=== PATIENT | male | born 1950 | race Caucasian/White ===

== ENCOUNTER 2023-12-24 08:48 | Emergency (ER) | payer MEDICARE, BC, SELFPAY ==
[2023-12-24 08:55] VITALS: BP 126/77; PULSE 90; RESP 18; TEMP 36.6; O2SAT 98; BMI 25.0
--- NOTE | 2023-12-24 09:05 | XR_ITS ---
Final Report Patient: JAYA LIM Facility:?[facility] Patient ID:?[id number] Site Patient ID:?[id number]. Site :?[id number] Study:?XRay Shoulder Left Shoulder 3v-12/24/2023 9:30:45 AM Ordering Physician:Que Final Report: INDICATION: Intermittent left shoulder pain for 1 week. TECHNIQUE: Three views of the left shoulder. FINDINGS: No acute left shoulder fracture or dislocation. Mild subacromial narrowing consistent with rotator cuff arthropathy. Moderate glenohumeral arthritis. Mild AC joint arthrosis. Dictated by Bubba Hanson MD @ 12/24/2023 9:44:12 AM Dictated by: Bubba Hanson MD @ 12/24/2023 09:44:17 (Electronic Signature)
--- NOTE | 2023-12-24 09:10 | ED_ITS ---
HPI - General Adult General Date Seen: 12/24/23 Chief complaint: Extremity Pain/Injury, Upper Stated complaint: Left shoulder pain Time Seen by Provider: 12/24/23 08:51 Source: patient, RN notes reviewed and old records reviewed Mode of arrival: ambulatory Limitations: no limitations History of Present Illness HPI narrative: patient is a 73-year-old male who presents for evaluation of left shoulder pain which he has had intermittently for the past week. He says at times it is severe. It usually bothers him more when he is at rest, often at night. It woke him from sleep at 5:30 a.m. this morning. He does not have pain with movement of the shoulder. He does have some pain in the trapezius muscles on the left and pain radiates down the left arm but not into the hand. He has not had weakness or numbness. He has not had chest pain or difficulty breathing, nausea or vomiting. He does have a history of DE he says in his 40s. He takes atorvastatin and tamsulosin. No other significant medical history. He does not smoke, no significant alcohol use. He has tried Tylenol and aspirin without relief. At times he has minimal to no pain. Related Data Home Medications Medication Instructions Recorded Confirmed B-complex with vitamin C 1 tab PO DAILY 12/24/23 12/24/23 atorvastatin 40 mg tablet 40 mg PO DAILY 12/24/23 12/24/23 terazosin 2 mg capsule 8 mg PO DAILY 12/24/23 12/24/23 tolterodine 2 mg capsule,extended 2 mg PO DAILY 12/24/23 12/24/23 release 24 hr Allergies Allergy/AdvReac Type Severity Reaction Status Date / Time No Known Drug Allergies Allergy Verified 12/24/23 08:55 Review of Systems Status of ROS: Reports: 10 or more systems reviewed and unremarkable except as noted in History and below [facility] Social History Smoking Status: Former smoker How often do you have a drink containing alcohol: never AUDIT-C Alcohol total score: 0 Non-prescribed substance use: denies use Exam Narrative: Exam Narrative: Vital signs as noted above. In general, an alert, well-appearing patient. Head: Normocephalic, atraumatic. Eyes: Pupils are equal reactive. Extraocular movements are full. Conjunctivae are normal. ENT: Mucous membranes are moist. Throat is normal. Neck: Supple without lymphadenopathy. Heart: Regular rate and rhythm. No murmur or rub. Lungs: Clear bilaterally. No increased work of breathing, crackles or wheezes. Abdomen: Soft and nontender. No organomegaly. Extremities: Well perfused. No edema. No calf tenderness. Pulses intact. He has full range of motion of the left shoulder, it is nontender to palpation. Neurologic: Patient is alert and oriented to person and place. Speech is fluent. Face is symmetric. Moves all extremities equally. Strength 5 of 5 in bilateral upper extremities, sensation intact to light touch. Affect: Normal. Skin: Warm and dry. Well perfused. Const: Vital Signs, click to edit/add: Vital Signs - 24 hr 12/24/23 08:55 Temperature 98 F Pulse Rate [Pulse Oximeter] 90 Respiratory Rate 18 Blood Pressure [Ri ght Upper Arm] 126/77 Pulse Oximetry 98 Oxygen Delivery Me thod Room Air Documenting provider has reviewed patient's vital signs: yes Course Course ED Course: Etiology of patient's shoulder pain at this time is a little unclear. The absence of pain with range of motion I think makes me less suspicious of conditions such as impingement, arthritis, adhesive capsulitis, etcetera. Pattern of pain is not overly suggestive of a cardiac etiology with symptoms being more prominent at rest, but with his past medical history of did recommend that we do a little bit of evaluation to rule that out. We will get an x-ray to look at the shoulder joint itself. Also consider cervical etiology for his symptoms. No red flag symptoms suggesting need for immediate imaging of the neck. X-ray of the left shoulder by my review shows some mild degenerative changes, no fracture dislocation. Final radiology read is pending as we do not have standard radiology coverage currently. Overall, my sense is that this is less likely to be directly related to a shoulder joint problem, consider possibility of cervical radiculopathy. I prescribed prednisone, he can continue with ibuprofen and Tylenol, I gave him oxycodone, 4 tablets from [facility] if needed for more severe pain at night. Have asked him to follow up with his primary clinic at the [facility] for re-evaluation, consideration of further imaging, and orthopedic follow-up if indicated. Return at any time for acute worsening or new symptoms. Vital Signs Vital signs: Initial Vital Signs Temperature 98 F 12/24/23 08:55 Temperature Source Temporal Artery Scan 12/24/23 08:55 Pulse Rate 90 12/24/23 08:55 Respiratory Rate 18 12/24/23 08:55 Blood Pressure 126/77 12/24/23 08:55 Blood Pressure Mean 93 12/24/23 08:55 Blood Pressure Position Sitting 12/24/23 08:55 Pulse Oximetry 98 12/24/23 08:55 Oxygen Delivery Method Room Air 12/24/23 08:55 Vital Signs Temperature 98 F 12/24/23 08:55 Pulse Rate 90 12/24/23 08:55 Respiratory Rate 18 12/24/23 08:55 Blood Pressure 126/77 12/24/23 08:55 Pulse Oximetry 98 12/24/23 08:55 Oxygen Delivery Method Room Air 12/24/23 08:55 Temperature 98 F 12/24/23 08:55 Pulse Rate 90 12/24/23 08:55 Respiratory Rate 18 12/24/23 08:55 Blood Pressure 126/77 12/24/23 08:55 Pulse Oximetry 98 12/24/23 08:55 Oxygen Delivery Method Room Air 12/24/23 08:55 Medical Decision Making Lab Data Labs: Lab Results 12/24/23 Range/Units 09:12 WBC 6.31 (4.50-11.00) K/uL RBC 3.80 L (4.30-5.90) m/uL Hgb 10.9 L (13.5-17.5) gm/dL Hct 35.4 L (37.0-53.0) % MCV 93 (80-100) fL MCH 29 (26-34) pg MCHC 31 L (32-36) gm/dL RDW Coeff of Wendy 13.0 (11.5-15.5) % Plt Count 275 (140-440) K/uL Neut % (Auto) 71.3 (42.0-72.0) % Lymph % (Auto) 18.1 L (20-44) % Maverick % (Auto) 7.4 (0.0-11.0) % Eos % (Auto) 2.7 (0.0-7.0) % Baso % (Auto) 0.3 (0.0-3.0) % Neut # (Auto) 4.50 (1.7-7.0) K/uL Lymph # (Auto) 1.10 (0.90-2.90) K/uL Maverick # (Auto) 0.50 (0.00-0.90) K/UL Eos # (Auto) 0.17 (0.00-0.50) K/uL Baso # (Auto) 0.02 (0.00-0.30) K/uL Abs Immat Gran (auto) 0.01 (0.00-0.30) K/uL Imm/Tot Granulo (auto) 0.2 % Sodium 137 (135-149) mmol/L Potassium 4.3 (3.6-5.1) mmol/L Chloride 104 (96-114) mmol/L Carbon Dioxide 27 (20-32) mmol/L Anion Gap 6 L (7-15) mEq/L BUN 16 (7-30) mg/dL Creatinine 0.7 (0.5-1.5) mg/dL Estimated Creat Clear 64.81 Estimated GFR 97 ml/min Glucose 109 (60-115) mg/dL Calcium 9.0 (8.4-10.6) mg/dL C-Reactive Protein < 0.5 L (0.5-1.0) mg/dL POC Troponin I 0.00 L (0.01-0.04) ng/ml Discharge Plan Discharge Clinical Impression: Left shoulder pain Patient Disposition: Home, Self-Care Condition: Stable Instructions: Shoulder Pain (ED) Additional Instructions: Continue with ibuprofen and Tylenol. Oxycodone if needed for severe uncontrolled pain. Prednisone as follows: 3 tablets daily for 3 days then 2 tablets daily for 3 days then 1 tablet daily for 3 days. I would recommend that you follow-up with primary care as you may need further evaluation of your cervical spine or with Orthopedics depending on how symptoms progress. Return to the ER at any time for acute worsening or new symptoms. Prescriptions: No Action tolterodine 2 mg capsule,extended release 24hr 2 mg PO DAILY terazosin 2 mg capsule 8 mg PO DAILY atorvastatin 40 mg tablet 40 mg PO DAILY B-complex with vitamin C Tablet 1 tab PO DAILY Follow Up/Referrals: Provider,Not a Local [Primary Care Provider] - Stand Alone Forms: [employer] Info Instructions
[2023-12-24 09:20] LABS: Basophils Absolute Auto 0.02 K/uL (0.00-0.30); Basophils Percent Auto 0.3 % (0.0-3.0); Eosinophils Absolute Auto 0.17 K/uL (0.00-0.50); Eosinophils Percent Auto 2.7 % (0.0-7.0); Hematocrit 35.4 % (37.0-53.0); Hemoglobin* 10.9 gm/dL (13.5-17.5); Immature Granulocytes Abs Auto 0.01 K/uL (0.00-0.30); Immature Granulocytes Pct Auto 0.2 %; Lymphocytes Percent Auto 18.1 % (20-44); Mean Corpuscular HGB Conc 31 gm/dL (32-36); Mean Corpuscular Hemoglobin 29 pg (26-34); Mean Corpuscular Volume 93 fL (80-100); Monocytes Percent Auto 7.4 % (0.0-11.0); Neutrophils Percent Auto 71.3 % (42.0-72.0); Platelet Count* 275 K/uL (140-440); White Blood Count* 6.31 K/uL (4.50-11.00)
[2023-12-24 09:22] LABS: Slide Review Reflex No
[2023-12-24 09:30] LABS: Chloride* 104 mmol/L (96-114); Potassium* 4.3 mmol/L (3.6-5.1); Sodium* 137 mmol/L (135-149)
[2023-12-24 09:33] LABS: Creatinine* 0.7 mg/dL (0.5-1.5); Est. Creatinine Clearance* 64.81; Estimated Glomerular Filt Rate 97 ml/min
[2023-12-24 09:34] LABS: Anion Gap 6 mEq/L (7-15); Blood Urea Nitrogen* 16 mg/dL (7-30); Carbon Dioxide* 27 mmol/L (20-32); Glucose* 109 mg/dL (60-115)
--- OUTSIDE RECORDS SUMMARY | 2023-12-24 09:43 | XMS_ITS | Referral Summary ---
Author Name Unknown Organization [place] Address [address] [place] [address] Care Team Providers Care Integrated Circuit Fabricator Name Role Phone Carrie Vicente PA-C Unavailable [phone] Barrie Hussein PA-C Primary Care Provider [phone] Allergies Active Allergy Reactions Criticality Noted Date Comments Penicillins Rash Low 07/24/2017 Sulfa Antibiotics Rash Low 07/12/1995 Medications Medication Sig Dispensed Refills Start Date End Date Status terazosin (HYTRIN) 2 MG capsuleIndications:E ssential hypertension,Benign prostatic hyperplasia with urinary frequency Take 1 capsule (2 mg) by mouth 3 times daily 270 capsule 3 06/10/2020 Active atorvastatin (LIPITOR) 40 MG tabletIndications:At herosclerosis of [place] coronary artery of [place] heart without angina pectoris Take 1 tablet (40 mg) by mouth daily 30 tablet 11 06/10/2020 Active cholecalciferol (VITAMIN D3) 10 mcg (400 units) TABS tablet TAKE TWO TABLETS BY MOUTH EVERY MORNING FOR VITAMIN-D 0 10/15/2019 Active vitamin B-12 (CYANOCOBALAMIN) 1000 MCG tablet Take 1,000 mcg by mouth daily 0 01/18/2023 Active BELBUCA 900 MCG FILM buccal film DISSOLVE 1 FILM BUCALLY TWICE DAILY FOR CHRONIC PAIN. DO NOT EAT DRINK OR SMOKE FOR 30 MINUTES 0 06/12/2023 Active metoprolol succinate ER (TOPROL XL) 25 MG 24 hr tablet Taking 6.25mg Pt is stopping medication, taking half of a half 0 07/07/2023 Active buprenorphine HCl-naloxone HCl (SUBOXONE) 2-0.5 MG per film TAKE ONE FILM TWICE DAILY BUCALLY 0 07/13/2023 Active cetirizine (ZYRTEC) 10 MG tablet Take 1 tablet by mouth daily at 2 pm 0 07/17/2023 Active Active Problems Problem Noted Date Diagnosed Date Anemia 08/03/2023 Benign neoplasm of sigmoid colon 07/07/2023 Deficiency of other specified B group vitamins 0 07/07/2023 Chronic right-sided low back pain with right-anyi ed sciatica 07/08/2022 ACP (advance care planning) 06/10/2020 Overview: Copy of healthcare directive was given to the patient today. Health Longterm 06/10/2020 Old [place] (myocardial infarction) 07/24/2017 Overview: 1994- RCA in [place] Mixed hyperlipidemia 07/24/2017 Status post aorto-coronary artery bypass graft 0 07/24/2017 Overview: 07/10/1997- Dr. 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 Atherosclerosis of [place] co ronary artery of [place] heart without angina pectoris 07/24/2017 HTN (hypertension) 05/25/2010 CVD (cardiovascular disease) 05/25/2010 Coronary atherosclerosis 05/25/2010 Immunizations Name Administration Dates Next Due COVID-19 MONOVALENT 12+ (Pfizer) 10/23/2021 COVID-19 Monovalent 18+ (Moderna) 01/16/2021,,12/26/2019 Flu, Unspecified 09/10/2014,08/06/2003 Influenza Vaccine 65+ (FLUAD) 07/12/2022 Influenza Vaccine >6 months,quad, PF 10/09/2020 Influenza Vaccine IM 18-49 Yrs, RIV3 10/15/2019 Pneumo Conj 13-V (2010&after) 06/20/2016 Pneumococcal 23 valent 10/17/2017,07/25/2008 Pneumococcal, Unspecified 05/30/2011 TDAP Vaccine (Adacel) 08/01/2013,06/19/2003 TDAP Vaccine (Boostrix) 07/05/2006 Td (Adult), Adsorbed 07/05/2006 Zoster recombinant adjuvanted (SHINGRIX) 020,04/01/2020 Zoster vaccine, live 08/01/2013 Social History Tobacco Use Types Packs/Day Years Used Date Smoking Tobacco: Former Cigarettes 1 25 Q uit: 1994 Passive Smoke Exposure: Past Smokeless Tobacco: Never Tobacco Cessation:Counseling Given: Not Answered Alcohol Use Standard Drinks/Week Comments Yes 0 (1 standard drink = 0.6 oz pur e alcohol) AUDIT-C Answer Date Recorded Q1: How often do you have a drink containing alc ohol? Monthly or less 07/16/2020 Q2: How many drinks containi ng alcohol do you have on a typical day when you are drinking? 1 or 2 07/16/2020 Q3: How often do you have si x or more drinks on one occasion? Never 07/16/2020 PHQ-2 Answer Date Recorded PHQ-2 Score 0 07/07/2023 Adolescent Education Answer Date Record ed Getting School Help Needed Not on file 08/03 Sex and Gender Information Value Date Recorded Sex Assigned at Not on file Gender Identity Not on file Sexual Orientation Not on file Last Filed Vital Signs Vital Sign Reading Time Taken Comments Blood Pressure 132/78 08/03/2023 11:19 AM CDT Pulse 66 08/03/2023 11:19 AM CDT Temperature 37.2 ??C (98.9 ??F) 08/03/2023 11:19 AM C DT Respiratory Rate 20 07/07/2023 11:21 AM CDT Oxygen Saturation 98% 08/03/2023 11:19 AM CDT Inhaled Oxygen Concentration - - Weight 79.8 kg (176 lb) 08/03/2023 11:19 AM CDT Height 175.3 cm (5' 9) 07/07/2023 11:21 AM CDT Body Mass Index 25.99 07/07/2023 11:21 AM CDT Plan of Treatment Not on file Care Teams Integrated Circuit Fabricator Relationship Specialty Start Date End Date Barrie Hussein PA-C [address] [address] [place] [address] PCP - General Family Medicine 07/24/23 Carrie Vicente PA-C [address] , [facility] [address] [place] [address] Assigned PCP 12/06/20
--- OUTSIDE RECORDS SUMMARY | 2023-12-24 09:43 | XMS_ITS | Encounter Summary ---
Author Name Unknown Organization [facility] Address [address] [place] [address] Care Team Providers Care Community Service Aide Name Role Phone Carrie Vicente PA-C Unavailable [phone] Candido Nichols MD Unavailable Un available Clinic, [facility] Primary Care Provider Carrie Vicente PA-C Primary Care Provid er Barrie Hussein PA-C Primary Care Provider [phone] Encounter Details Date Type Department Care Team (Late st Contact Info) Description 09/17/2021 Documentation Only INTERFACED REPORT Unknown, Provider Social History Tobacco Use Types Packs/Day Years Used Date Smoking Tobacco: Former Cigarettes 1 25 Q uit: 1994 Smokeless Tobacco: Never Alcohol Use Standard Drinks/Week Comments Yes 0 [...] PHQ-2 Answer Date Recorded PHQ-2 Score 0 05/03/2021 Sex and Gender Information Value Date Recorded Sex Assigned at Not on file Gender Identity Not on file Sexual Orientation Not on file COVID-19 Exposure Response Date Recorded In the last month, have you been in contact with someone who was confirmed or suspected to have Coronavirus / COVID-19? No / Unsure 09/17/2021 11:08 AM SCRAP HANDLER documented as of this encounter Plan of Treatment Not on file documented as of this encounter Visit Diagnoses Not on filedocumented in this encounter Additional Health Concerns Assessment Noted Time PHQ-9 Depression Total Score: 2 06/10/20 20 5:42 PM CDT documented as of this encounter Care Teams Community Service Aide Relationship Specialty Start Date End Date Clinic, [place], [place] PCP - General 09/17/21 09/26/21 Carrie Vicente PA-C [address], [place] [address] [place] [address] PCP - General Family Medicine 09/27/21 07/23/23 Barrie Hussein PA-C [address] [place] [address] PCP - General Family Medicine 07/24/23 Carrie Vicente PA-C [address], [place] [address] [place] [address] Assigned PCP 12/06/20 Candido Nichols MD Assigned Heart and Vascular Provider 06/27/21 12/23/22 documented as of this encounter
--- OUTSIDE RECORDS SUMMARY | 2023-12-24 09:43 | XMS_ITS | Clinical Summary ---
Author Name Unknown Organization [place] Address [address] [place] [address] Care Team Providers Care Adult High School Instructor Name Role Phone Carrie Vicente PA-C Unavailable [phone] Barrie Hussein PA-C Primary Care Provider [phone] Allergies Active Allergy Reactions Criticality Noted Date Comments Penicillins Rash Low 07/24/2017 Sulfa Antibiotics Rash Low 07/12/1995 Medications Medication Sig Dispensed Refills Start Date End Date Status terazosin (HYTRIN) 2 MG capsuleIndications:E ssential hypertension,Benign prostatic hyperplasia with urinary frequency Take 1 capsule (2 mg) by mouth 3 times daily 270 capsule 3 06/10/2020 Active atorvastatin (LIPITOR) 40 MG tabletIndications:At herosclerosis of [place] coronary artery of [place] heart without angina pectoris Take 1 tablet [...] was given to the patient today. Health Half-Way 06/10/2020 [place] (myocardial infarction) 07/24/2017 Overview: 1994- RCA in [place] Mixed hyperlipidemia 07/24/2017 Status post aorto-coronary artery bypass graft 0 07/24/2017 Overview: 07/10/1997- Dr. 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 FLIGHT DIRECTOR of the RCA Atherosclerosis of [place] co ronary artery of [place] heart without angina pectoris 07/24/2017 HTN (hypertension) [...] adjuvanted (SHINGRIX) 020,04/01/2020 Zoster vaccine, live 08/01/2013 Family History Medical History Relation Comments Diabetes Type 2 Father Myocardial Infarction Father 60s Diabetes Type 2 Mother Coronary Artery Disease Sister Hyperlipidemia Son Colon Cancer No family hx of Prostate Cancer No family hx of Relation Status Comments Daughter 1 Alive Daughter 2 Alive Father Maternal Grandfather Maternal Grandmother Mother Paternal Grandfather Paternal Grandmother Sister Alive Son Alive Social History Tobacco Use Types Packs/Day Years [...] 07/07/2023 11:21 AM CDT Plan of Treatment Health Maintenance Due Date Last Done Comments ANNUAL REVIEW OF HM ORDERS 1950 CT COLONOGRAPHY 1950 FIT 1950 FLEX SIG 1950 LIPID 1950 sDNA (Cologuard) 1950 HEPATITIS C SCREENING 1967 RSV VACCINE ( & 60+) (1 - 1-dose 60+ series) 2009 AORTIC ANEURYSM SCREENING (SYSTEM ASSIGNED) 2014 MEDICARE ANNUAL WELLNESS VISIT 2014 COVID-19 Vaccine (2022-24 season) 2023 01/18/2023, 10/23/2021, 01/16/2021, Additional history exists INFLUENZA VACCINE (#1) 2023 , 10/09/2020, 10/15/2019, Additional history exists DTAP/TDAP/TD IMMUNIZATION (5 - Td or Tdap) 08/01/2023 08/01/2013, 07/05/2006, 07/05/2006, Additional history exists PHQ-2 (once per calendar year) 2023 07/07/2023, 05/03/2021, 06/10/2020, Additional history exists FALL RISK ASSESSMENT 07/07/2024 07/07/2023, 06/10/20 20 ADVANCE CARE PLANNING 06/10/2025 06/10/2020, 020 GLUCOSE 07/07/2026 07/07/2023, 09/06, 05/03/2021, Additional history exists COLONOSCOPY 07/07/2027 COLORECTAL CANCER SCREENING 07/07/2027 Pneumococcal Vaccine: 65+ Years Completed 10/17/2017, 06/20/2016, 05/30/2011, Additional history exists ZOSTER IMMUNIZATION Completed 07/02/2020, 04/01/2020, 08/01/2013 HPV IMMUNIZATION Aged Out No longer e ligible based on patient's age to complete this topic IPV IMMUNIZATION Aged Out No longer e ligible based on patient's age to complete this topic MENINGITIS IMMUNIZATION Aged Out No l onger eligible based on patient's age to complete this topic RSV MONOCLONAL ANTIBODY Aged Out No l onger eligible based on patient's age to complete this topic Care Teams Adult High School Instructor Relationship Specialty Start Date End Date Barrie Hussein PA-C [address] [address] [place] [address] PCP - General Family Medicine 07/24/23 Carrie Vicente PA-C [address] , [facility] [address] [place] [address] Assigned PCP 12/06/20
--- OUTSIDE RECORDS SUMMARY | 2023-12-24 09:43 | XMS_ITS | Encounter Summary ---
Author Name Unknown Organization [place] Address [address] [place] [address] Care Team Providers Care Perinatal Educator Name Role Phone Carrie Vicente PA-C Unavailable [phone] Carrie Vicente PA-C Primary Care Provid er Encounter Details Date Type Department Care Team (Latest Contact Info) Description 07/07/2023 Travel Social History Tobacco Use Types Packs/Day Years Used Date Smoking Tobacco: Former Cigarettes 1 25 Q uit: 1994 Passive Smoke Exposure: Past Smokeless Tobacco: Never Alcohol Use Standard Drinks/Week [...] Answer Date Recorded PHQ-2 Score 0 07/07/2023 Sex and Gender Information Value Date Recorded Sex Assigned at Not on file Gender Identity Not on file Sexual Orientation Not on file COVID-19 Exposure Response Date Recorded In the last 10 days, have yo u been in contact with someone who was confirmed or suspected to have Coronavirus/COVID-19? No / Unsure 07/07/2023 11:06 AM CDT documented as of this encounter Plan of Treatment Not on file documented as of this encounter Visit Diagnoses Not on filedocumented in this encounter Additional Health Concerns Assessment Noted Time PHQ-9 Depression Total Score: 2 06/10/20 20 5:42 PM CDT documented as of this encounter Care Teams Perinatal Educator Relationship Specialty Start Date End Date Carrie Vicente PA-C [address], [place] [address] [place] [address] PCP - General Family Medicine 09/27/21 07/23/23 Carrie Vicente PA-C [address], [place] [address] [place] [address] Assigned PCP 12/06/20 documented as of this encounter
--- OUTSIDE RECORDS SUMMARY | 2023-12-24 09:43 | XMS_ITS | Clinical Summary ---
Author Name Unknown Organization [facility] Address [address] [place] [address] Care Team Providers Care Measuring Machine Operator Name Role Phone Pcp, Pt Declines Primary Care Provider [phone] Source Comments You are receiving this document as you are listed as the primary care provider,follow-up provider, or the patient has been referred to you for consultation.This is in compliance with the Medicare and[facility] EHR Incentive Program,which states Providers who transition their patient to another setting of careor provider of care or refers their patient to another provider of care shouldprovide summary care record for each transition of care or referral. [facility] Allerg[facility] Active Allergy Reactions Criticality Noted Date Comments Penicillins Rash 07/24/2017 Medications Medication Sig Dispensed Refills Start Date End Date Status atenolol (TENORMIN) 25 MG tablet Take 25 mg by mouth daily. Active terazosin (HYTRIN) 2 MG capsule Take 2 mg by mouth every evening. Active atorvastatin (LIPITOR) 40 MG tablet Take 40 mg by mouth daily. Active HYDROcodone-acetaminop hen (VICODIN,LORTAB) 5-500 MG tablet Take 1 Tab by mouth every 6 hours as needed for Pain. Active HYDROcodone-acetaminop hen (NORCO) 10-325 MG tablet TAKE 1 TABLET BY MOUTH EVERY 4 - 6 HOURS NEEDED FOR CHRONIC PAIN MAX 3/DAY 0 09/30/2019 Active oxyCODONE-acetaminophe n (PERCOCET) 10-325 MG tablet TAKE 1 TABLET DAILY NEEDED FOR CHRONIC PAIN 0 09/30/2019 Active Active Problems Problem Noted Date Diagnosed Date Old PR (myocardial infarction) 07/24/2017 Overview: 1994- RCA in [place] Atherosclerotic heart diseas e of [place] coronary artery without angina pectoris 07/24/2017 Hx of CABG 07/24/2017 Overview: 07/10/1997- Dr. 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 NIGHT CLERK of the RCA Mixed hyperlipidemia 07/24/2017 Social History Tobacco Use Types Packs/Day Years Used Date Smoking Tobacco: Never Smokeless Tobacco: Never Tobacco Cessation:Counseling Given: No Alcohol Use Standard Drinks/Week Comments No 0 (1 standard drink = 0.6 oz pur e alcohol) Sex and Gender Information Value Date Recorded Sex Assigned at Not on file Gender Identity Not on file Sexual Orientation Not on file Last Filed Vital Signs Vital Sign Reading Time Taken Comments Blood Pressure 123/72 02/05/2018 9:44 AM CDT Pulse 55 02/05/2018 9:44 AM CDT Temperature 36.8 ??C (98.3 ??F) 10/13/2019 9:57 AM CS T Respiratory Rate 16 02/05/2018 9:44 AM CDT Oxygen Saturation 100% 02/05/2018 9:44 AM CDT Inhaled Oxygen Concentration - - Weight 77.1 kg (170 lb) 08/30/2018 10:54 AM CDT Height 175.3 cm (5' 9) 02/05/2018 9:00 AM CDT Body Mass Index 25.1 02/05/2018 9:00 AM CDT Plan of Treatment Health Maintenance Due Date Last Done Comments Colon Cancer Screening Plan Due 1950 Hep C Screening (Preventive Services) 1950 Medicare Annual Wellness Visit 1950 Cholesterol 1984 DTaP/Tdap/Td (1 - Tdap) 07/06/2006 07/05/2006 Pneumococcal 65+ Yrs (2 - PCV) 2014 07/25/2008 Zoster/Shingles (2 of 2) 08/27/2020 07/02/2020 COVID-19 Vaccine (2 - 2022-2 4 season) 2023 12/26/2020 Influenza (#1) 2023 HepA Aged Out No longer eligi ble based on patient's age to complete this topic HepB Aged Out No longer eligi ble based on patient's age to complete this topic Hib Aged Out No longer eligi ble based on patient's age to complete this topic IPV ([place]) Aged Out No longer eligi ble based on patient's age to complete this topic MCV4 Aged Out No longer eligi ble based on patient's age to complete this topic Care Teams Measuring Machine Operator Relationship Specialty Start Date End Date Pcp, [place] [address] PCP - General 01/17/18
--- OUTSIDE RECORDS SUMMARY | 2023-12-24 09:43 | XMS_ITS | Encounter Summary ---
Author Name Unknown Organization [facility] Address [address] [place] [address]. [place] [address] Care Team Providers Care Permit Specialist Name Role Phone Carrie Vicente PA-C Unavailable [phone] Adrian Montilla PA-C Primary Care Provider [phone] Reason for Visit * Reason Comments Pre-Op Exam Pt here for his pre- op exam for removal of his stimulator on August [address] Marino at [facility]. Encounter Details Date Type Department Care Team (Late st Contact Info) Description 08/03/2023 11:30 AM CDT Office Visit [facility] [address] [place] [address] Adrian Montilla PA-C [address] [place] [address] Chronic bilateral low back pain without sciatica (Primary Dx); Pre-op exam Social History Tobacco Use Types Packs/Day Years [...] was confirmed or suspected to have Coronavirus/COVID-19? Unable to assess 08/03/2023 11:09 AM CDT documented as of this encounter Last Filed Vital Signs Vital Sign Reading Time Taken Comments Blood Pressure 132/78 08/03/2023 11:19 AM CDT Pulse 66 08/03/2023 11:19 AM CDT Temperature 37.2 ??C (98.9 ??F) 08/03/2023 11:19 AM C DT Respiratory Rate - - Oxygen Saturation 98% 08/03/2023 11:19 AM CDT Inhaled Oxygen Concentration - - Weight 79.8 kg (176 lb) 08/03/2023 11:19 AM CDT Height - - Body Mass Index 25.99 07/07/2023 11:21 AM CDT documented in this encounter Progress Notes * Adrian Montilla PA-C - 08/03/2023 11:30 AM CDT [facility] [address] [place] [id number] Primary Provider: Adrian Montilla Pre-op Performing Provider: ADRIAN MONTILLA PREOPERATIVE EVALUATION: Today's date: 08/03/2023 Gabriele is a 72 year old male who presents for a preoperative evaluation. Surgical Information: Surgery/Procedure: Stimulator removal Surgery Location: [facility] Surgeon: Dr. Marino Surgery Date: 08/15/23 Time of Surgery: AM Where patient plans to recover: At home with family Fax number for surgical facility: [phone] Assessment & Plan The proposed surgical procedure is considered INTERMEDIATE risk. Chronic bilateral low back pain without sciatica Proceed with surgery at surgeon's discretion. - VENOUS COLLECTION - HEMOGRAM PLATELET DIFF (BFP) Pre-op exam - VENOUS COLLECTION - HEMOGRAM PLATELET DIFF (BFP) - No identified additional risk factors other than previously addressed Antiplatelet or Anticoagulation Medication Instructions: - Patient is on no antiplatelet or anticoagulation medications. Additional Medication Instructions: Hold all meds until after surgery RECOMMENDATION: APPROVAL GIVEN to proceed with proposed procedure, without further diagnostic evaluation. Subjective HPI related to upcoming procedure: Chronic back pain, removal of stimulator 1. Yes - Have you ever had a heart attack or stroke? 1994 and 1996, [place] x2 2. Yes - Have you ever had surgery on your heart or blood vessels, such as a stent, coronary (heart) bypass, or surgery on an artery in the head, neck, heart, or legs? Triple bypass 1996, unknown number of coronary artery stents 3. No - Do you have chest pain when you are physically active? 4. No - Do you have a history of heart failure? 5. No - Do you currently have a cold, bronchitis, or symptoms of other respiratory (head and chest)infections? 6. No - Do you have a cough, shortness of breath, or wheezing? 7. No - Do you or anyone in your family have a history of blood clots? 8. No - Do you or anyone in your family have a serious bleeding problem, such as long-lasting bleeding after surgeries or cuts? 9. No - Have you ever had anemia or been told to take iron pills? 10. No - Have you had any abnormal blood loss such as black, tarry or bloody stools, or abnormal vaginal bleeding? 11. No - Have you ever had a blood transfusion? 12. Yes - Are you willing to have a blood transfusion if it is medically needed before, during, or after your surgery? 13. No - Have you or anyone in your family ever had problems with anesthesia (sedation for surgery)? 14. No - Do you have sleep apnea, excessive snoring, or daytime drowsiness? 15. Yes - Do you have any artifical heart valves or other implanted medical devices, such as a pacemaker, defibrillator, or continuous glucose monitor? Spinal stimulator What type of device? Spinal stimulator What is the name of the clinic that manages your device? [facility] 16. No - Do you have any artifical joints? 17. No - Are you allergic to latex? Health Care Directive: Patient does not have a Health Care Directive or Living Will: Discussed advance care planning with patient; however, patient declined at this time. Preoperative Review of COMPLAINT SUPERVISOR: COMPLAINT SUPERVISOR reviewed - controlled substances prescribed by other outside provider(s). Status of Chronic Conditions: CAD - Patient has a longstanding history of moderate-severe CAD. Patient denies recent chest pain or NTG use, denies exercise induced dyspnea or PND. Last Stress test Unknown, EKG 07/07/23. HYPERLIPIDEMIA - Patient has a long history of significant Hyperlipidemia requiring medication for treatment with recent good control. Patient reports no problems or side effects with the medication. Review of Systems CONSTITUTIONAL: NEGATIVE for fever, chills, change in weight INTEGUMENTARY/SKIN: NEGATIVE for worrisome rashes, moles or lesions EYES: NEGATIVE for vision changes or irritation ENT/MOUTH: NEGATIVE for ear, mouth and throat problems RESP: NEGATIVE for significant cough or SOB CV: NEGATIVE for chest pain, palpitations or peripheral edema GI: NEGATIVE for nausea, abdominal pain, heartburn, or change in bowel habits : NEGATIVE for frequency, dysuria, or hematuria NEURO: NEGATIVE for weakness, dizziness or paresthesias ENDOCRINE: NEGATIVE for temperature intolerance, skin/hair changes HEME: NEGATIVE for bleeding problems PSYCHIATRIC: NEGATIVE for changes in mood or affect Patient Active Problem List Diagnosis Date Noted Anemia 08/03/2023 Priority: Medium Benign neoplasm of sigmoid colon 07/07/2023 Priority: Medium Deficiency of other specified B group vitamins 07/07/2023 Priority: Medium Chronic right-sided low back pain with right-sided sciatica 07/08/2022 Priority: Medium ACP (advance care planning) 06/10/2020 Priority: Medium Copy of healthcare directive was given to the patient today. [facility] 06/10/2020 Priority: Medium Old MT (myocardial infarction) 07/24/2017 Priority: Medium 1995- RCA in [place] Mixed hyperlipidemia 07/24/2017 Priority: Medium Status post aorto-coronary artery bypass graft 07/24/2017 Priority: Medium 07/10/1997- Dr. 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 FABRICATOR SPECIAL ITEMS of the RCA Atherosclerosis of [place] coronary artery of [place] heart without angina pectoris 07/24/2017 Priority: Medium HTN (hypertension) 05/25/2010 Priority: Medium CVD (cardiovascular disease) 05/25/2010 Priority: Medium Coronary atherosclerosis 05/25/2010 Priority: Medium No past medical history on file. Past Surgical History: Procedure Laterality Date APPENDECTOMY 2009 approx 2010 CABG, ARTERIAL, THREE 1997 x 3 LAT [facility] CORONARY STENT PERCUT, INITIAL VESSEL [place] Current Outpatient Medications Medication Sig Dispense Refill atorvastatin (LIPITOR) 40 MG tablet Take 1 tablet (40 mg) by mouth daily 30 tablet 11 BELBUCA 900 MCG FILM buccal film DISSOLVE 1 FILM BUCALLY TWICE DAILY FOR CHRONIC PAIN. DO NOT EAT DRINK OR SMOKE FOR 30 MINUTES buprenorphine HCl-naloxone HCl (SUBOXONE) 2-0.5 MG per film TAKE ONE FILM TWICE DAILY BUCALLY cetirizine (ZYRTEC) 10 MG tablet Take 1 tablet by mouth daily at 2 pm cholecalciferol (VITAMIN D3) 10 mcg (400 units) TABS tablet TAKE TWO TABLETS BY MOUTH EVERY MORNINGFOR VITAMIN-D metoprolol succinate ER (TOPROL XL) 25 MG 24 hr tablet Taking 6.25mg Pt is stopping medication, taking half of a half terazosin (HYTRIN) 2 MG capsule Take 1 capsule (2 mg) by mouth 3 times daily 270 capsule 3 vitamin B-12 (CYANOCOBALAMIN) 1000 MCG tablet Take 1,000 mcg by mouth daily Allergies Allergen Reactions Penicillins Rash Sulfa Antibiotics Rash Social History Tobacco Use Smoking status: Former Packs/day: 1.00 Years: 25.00 Pack years: 25.00 Types: Cigarettes Quit date: 1994 Years since quittin.7 Passive exposure: Past Smokeless tobacco: Never Substance Use Topics Alcohol use: Yes History Drug Use Unknown Objective BP 132/78 (BP Location: Right arm, Patient Position: Sitting, Cuff Size: Adult Large) Pulse 66 Temp 98.9 ??F (37.2 ??C) (Temporal) Wt 79.8 kg (176 lb) SpO2 98% BMI 25.99 kg/m?? Physical Exam GENERAL APPEARANCE: healthy, alert and no distress EYES: EOMI, PERRL HENT: ear canals and TM's normal and nose and mouth without ulcers or lesions NECK: no adenopathy, no asymmetry, masses, or scars and thyroid normal to palpation RESP: lungs clear to auscultation - no rales, rhonchi or wheezes CV: regular rates and rhythm, normal S1 S2, no S3 or S4 and no murmur, click or rub ABDOMEN: soft, nontender, no HSM or masses and bowel sounds normal MS: extremities normal- no gross deformities noted, no evidence of inflammation in joints, FROM in all extremities. SKIN: no suspicious lesions or rashes NEURO: Normal strength and tone, sensory exam grossly normal, mentation intact and speech normal PSYCH: mentation appears normal. and affect normal/bright LYMPHATICS: No cervical adenopathy Recent Labs Lab Test 07/07/23 1205 07/07/23 0000 09/17/21 1145 HGB 10.2* -- 11.6* PLT 222 -- 209 NA -- 136.5 137 POTASSIUM -- 4.11 4.0 CR -- 0.88 0.77 Diagnostics: Recent Results (from the past 24 hour(s)) HEMOGRAM PLATELET DIFF (BFP) Collection Time: 08/03/23 11:55 AM Result Value Ref Range WBC 7.8 4.0 - 11 10*9/L RBC Count 3.97 (A) 4.4 - 5.9 10*12/L Hemoglobin 11.7 (A) 13.3 - 17.7 g/dL Hematocrit 37.4 (A) 40.0 - 53.0 % MCV 94.2 78 - 100 fL MCH 29.5 26 - 33 pg MCHC 31.3 31 - 36 g/dL Platelet Count 186 150 - 375 10^9/L % Granulocytes 64.8 % % Lymphocytes 25.4 % % Monocytes 9.8 % Collection Time: 07/07/23 12:00 AM Result Value Ref Range Carbon Dioxide 30.7 20 - 32 mmol/L Creatinine 0.88 0.60 - 1.30 mg/dL Glucose 111 (A) 60 - 99 mg/dL Sodium 136.5 135 - 146 mmol/L Potassium 4.11 3.5 - 5.3 mmol/L Chloride 102.9 98 - 110 mmol/L Urea Nitrogen 14 7 - 25 mg/dL Calcium 8.8 8.6 - 10.3 mg/dL BUN/Creatinine Ratio 15.9 6 - 32 EKG: sinus bradycardia, normal axis, normal intervals, no acute ST/T changes c/w ischemia, no LVH by voltage criteria, Right Bundle Branch Block, unchanged from previous tracings Revised Cardiac Risk Index (RCRI): The patient has the following serious cardiovascular risks for perioperative complications: - Coronary Artery Disease (MT, positive stress test, angina, Qs on EKG) = 1 point RCRI Interpretation: 1 point: Class II (low risk - 0.9% complication rate) Signed Electronically by: Adrian Montilla PA-C Copy of this evaluation report is provided to requesting physician. documented in this encounter Nursing Notes * Nisha Dawkins MA - 08/03/2023 11:30 AM CDT Chief Complaint Patient presents with Pre-Op Exam Pt here for his pre-op exam for removal of his stimulator on August [address] Marino at [facility]. documented in this encounter Plan of Treatment Not on file documented as of this encounter Procedures Procedure Name Priority Date/Time Associated Diagnosis Comments HEMOGRAM PLATELET DIFF (BFP) Routine 08/03/2023 11:55 AM CDT Chronic bilateral low back pain without sciatica Pre-op exam DC COLLECTION VENOUS BLOOD VENIPUNCTURE Routine 08/03/2023 11:38 AM CDT Chronic bilateral low back pain without sciatica Pre-op exam documented in this encounter Results * (ABNORMAL) HEMOGRAM PLATELET DIFF (BFP) (08/03/2023 11:55 AM CDT) WBC 7.8 4.0 - 11 10*9/L BFP INTERNAL RBC Count 3.97(A) 4.4 - 5.9 10*12/L BFP INTERNAL Hemoglobin 11.7(A) 13.3 - 17.7 g/dL BFP INTERNAL Hematocrit 37.4(A) 40.0 - 53.0 % BFP INTERNAL MCV 94.2 78 - 100 fL BFP INTERNAL MCH 29.5 26 - 33 pg BFP INTERNAL MCHC 31.3 31 - 36 g/dL BFP INTERNAL Platelet Count 186 150 - 375 10^9/L BFP INTERNAL % Granulocytes 64.8 % BFP INTERNAL % Lymphocytes 25.4 % BFP INTERNAL % Monocytes 9.8 % BFP INTERNAL Blood 08/03/2023 11:5 5 AM CDT Narrative BFP INTERNAL - 08/03/2023 11:56 AM CDT Ran twice ea Adrian Montilla PA-C LAB - NON-BEAKER BLO OD LABS BF INTERNAL documented in this encounter Visit Diagnoses Diagnosis Chronic bilateral low back pain without sciatica- Primary Pre-op exam Preoperative examination, unspecified documented in this encounter Additional Health Concerns Assessment Noted Time PHQ-9 Depression Total Score: 2 06/10/20 20 5:42 PM CDT documented as of this encounter Care Teams Permit Specialist Relationship Specialty Start Date End Date Adrian Montilla PA-C [address] [facility] [address] [place] [address] PCP - General Family Medicine 07/24/23 Carrie Vicente PA-C [address], [facility] [address] [place] [address] Assigned PCP 12/06/20 documented as of this encounter
--- OUTSIDE RECORDS SUMMARY | 2023-12-24 09:43 | XMS_ITS | Encounter Summary ---
Author Name Unknown Organization [facility] Address [address] [place] [address] Care Team Providers Care Teacher Name Role Phone Carrie Vicente PA-C Unavailable [phone] Carrie Vicente PA-C Primary Care Provid er Reason for Visit * Reason Comments Pre-Op Exam Encounter Details Date Type Department Care Team (Late st Contact Info) Description 07/07/2023 11:30 AM CDT Office Visit [facility] [address] [address] Adrian Montilla PA-C [address] [address] Pre-op exam (Primary Dx); Chronic bilateral low back pain without sciatica Social History Tobacco Use Types Packs/Day Years [...] Sign Reading Time Taken Comments Blood Pressure 140/72 07/07/2023 11:21 AM CDT Pulse 60 07/07/2023 11:21 AM CDT Temperature 36.6 ??C (97.8 ??F) 07/07/2023 11:21 AM C DT Respiratory Rate 20 07/07/2023 11:21 AM CDT Oxygen Saturation - - Inhaled Oxygen Concentration - - Weight 80 kg (176 lb 6.4 oz) 07/07/2023 11:21 AM CDT Height 175.3 cm (5' 9) 07/07/2023 11:21 AM CDT Body Mass Index 26.05 07/07/2023 11:21 AM CDT documented in this encounter Progress Notes * Adrian Montilla PA-C - 07/07/2023 11:30 AM CDT [facility] [address] [place] [phone] Primary Provider: Carrie Vicente Pre-op Performing Provider: ADRIAN MONTILLA PREOPERATIVE EVALUATION: Today's date: 07/07/2023 Gabriele Nevarez is a 72 year old male who presents for a preoperative evaluation. Surgical Information: Surgery/Procedure: Stimulator removal Surgery Location: [facility] [place] [facility] Surgeon: Dr Marino Surgery Date: 07/18/23 Time of Surgery: am Where patient plans to recover: At home with family Fax number for surgical facility: [phone] Assessment & Plan The proposed surgical procedure is considered INTERMEDIATE risk. Pre-op exam Proceed with surgery at surgeon's discretion. - Basic Metabolic Panel (BFP) - VENOUS COLLECTION - EKG 12-lead complete w/read - Clinics - Hemogram Platelet (BFP) Chronic bilateral low back pain without sciatica - Basic Metabolic Panel (BFP) - VENOUS COLLECTION - EKG 12-lead complete w/read - Clinics - Hemogram Platelet (BFP) - No identified additional risk factors [...] heart attack or stroke? 1994 and 1996, [place] x2 2. Yes - Have you ever [...] of the clinic that manages your device? [facility] 16. No - Do you have any artifical joints? 17. No - Are you allergic to latex? Health Care Directive: Patient does not have a Health Care Directive or Living Will: Discussed advance care planning with patient; information given to patient to review. Preoperative Review of INTERMEDIATE MANAGER: INTERMEDIATE MANAGER reviewed - controlled substances reflected in medication list. Status of Chronic Conditions: CAD - Patient [...] Patient Active Problem List Diagnosis Date Noted Benign neoplasm of sigmoid colon 07/07/2023 Priority: Medium Deficiency of other specified B group vitamins 07/07/2023 Priority: Medium Chronic right-sided low back pain with right-sided sciatica 07/08/2022 Priority: Medium ACP (advance care planning) 06/10/2020 Priority: Medium Copy of healthcare directive was given to the patient today. [facility] 06/10/2020 Priority: Medium Old RI (myocardial infarction) 07/24/2017 Priority: Medium 1995- RCA in [place] Mixed hyperlipidemia 07/24/2017 Priority: Medium Status post aorto-coronary artery bypass graft 07/24/2017 Priority: Medium 07/10/1997- Dr. 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 CLINICAL REVIEW SPECIALIST of the RCA Atherosclerosis of telida coronary artery of telida heart without angina pectoris 07/24/2017 Priority: Medium HTN (hypertension) 05/25/2010 Priority: Medium CVD (cardiovascular disease) 05/25/2010 Priority: Medium Coronary atherosclerosis 05/25/2010 Priority: Medium No past medical history on file. Past Surgical History: Procedure Laterality Date APPENDECTOMY 2009 approx 2010 CABG, ARTERIAL, THREE 1997 x 3 LAT LUMBAR SPINE FUSION ZZ CORONARY STENT PERCUT, INITIAL VESSEL [place] Current Outpatient Medications Medication Sig Dispense Refill atorvastatin (LIPITOR) 40 MG tablet Take 1 tablet (40 mg) by mouth daily 30 tablet 11 BELBUCA 900 MCG FILM buccal film DISSOLVE 1 FILM BUCALLY TWICE DAILY FOR CHRONIC PAIN. DO NOT EAT DRINK OR SMOKE FOR 30 MINUTES cholecalciferol (VITAMIN D3) 10 mcg (400 units) [...] Types: Cigarettes Quit date: 1994 Years since quittin.6 Passive exposure: Past Smokeless tobacco: Never Substance Use Topics Alcohol use: Yes History Drug Use Unknown Objective BP (!) 140/72 (BP Location: Right arm, Patient Position: Chair, Cuff Size: Adult Regular) Pulse 60 Temp 97.8 ??F (36.6 ??C) (Temporal) Resp 20 Ht 1.753 m (5' 9) Wt 80 kg (176 lb 6.4 oz) BMI 26.05 kg/m?? Physical Exam GENERAL APPEARANCE: healthy, alert [...] No cervical adenopathy Recent Labs Lab Test 09/17/21 1145 HGB 11.6* PLT 209 NA 137 POTASSIUM 4.0 CR 0.77 Diagnostics: Recent Results (from the past 24 hour(s)) Basic Metabolic Panel (BFP) Collection Time: 07/07/23 12:00 AM Result Value [...] mg/dL BUN/Creatinine Ratio 15.9 6 - 32 Hemogram Platelet (BFP) Collection Time: 07/07/23 12:05 PM Result Value Ref Range WBC 6.5 4.0 - 11 10*9/L RBC Count 3.41 (A) 4.4 - 5.9 10*12/L Hemoglobin 10.2 (A) 13.3 - 17.7 g/dL Hematocrit 32.4 (A) 40.0 - 53.0 % MCV 95.1 78 - 100 fL MCH 29.9 26 - 33 pg MCHC 31.5 31 - 36 g/dL RDW 12.0 % Platelet Count 222 150 - 375 10^9/L EKG: sinus bradycardia, normal axis, normal intervals, no acute ST/T changes c/w ischemia, no LVH by voltage criteria, Right Bundle Branch Block, unchanged from previous tracings Revised Cardiac Risk Index (RCRI): The patient has the following serious cardiovascular risks for perioperative complications: - Coronary Artery Disease (RI, positive stress test, angina, Qs on EKG) = 1 point RCRI Interpretation: 1 point: Class II (low risk - 0.9% complication rate) Signed Electronically by: Adrian Montilla PA-C Copy of this evaluation report is provided to requesting physician. documented in this encounter Nursing Notes * Isabell Leon CMA - 07/07/2023 11:30 AM CDT Gabriele Nevarez is here for a pre-op exam. Questioned patient about current smoking habits. Pt. quit smoking some time ago. PULSE regular My Chart: active CLASSIFICATION OF OVERWEIGHT AND OBESITY BY BMI Obesity Class BMI(kg/m2) Underweight < 18.5 Normal 18.5-24.9 Overweight 25.0-29.9 OBESITY I 30.0-34.9 II 35.0-39.9 EXTREME OBESITY III >40 Patient's BMI Body mass index is 26.05 kg/m??. http://hin.nhlbi.nih.gov/menuplanner/menu.cgi Pre-visit planning Immunizations - up to date Colonoscopy - is up to date Per Pt Mammogram - Asthma - PHQ9 - SUSAN-7 - The patient has verbalized that it is ok to leave a detailed voice message on the patient's cell phone with results/recommendations from this visit. documented in this encounter Plan of Treatment Not on file documented as of this encounter Procedures Procedure Name Priority Date/Time Associated Diagnosis Comments HEMOGRAM WITH PLATELETS (BFP) Routine 07/07/2023 12:05 PM CDT Pre-op exam Chronic bilateral low back pain without sciatica [place] COLLECTION VENOUS BLOOD VENIPUNCTURE Routine 07/07/2023 11:48 AM CDT Pre-op exam Chronic bilateral low back pain without sciatica EKG 12-LEAD COMPLETE W/READ - CLINICS Routine 07/07/2023 Pre-op exam Chronic bilateral low back pain without sciatica BASIC METABOLIC PANEL (BFP) Routine 07/07/2023 Pre-op exam Chronic bilateral low back pain without sciatica documented in this encounter Results * (ABNORMAL) Hemogram Platelet (BFP) (07/07/2023 12:05 PM CDT) WBC 6.5 4.0 - 11 10*9/L BFP INTERNAL RBC Count 3.41(A) 4.4 - 5.9 10*12/L BFP INTERNAL Hemoglobin 10.2(A) 13.3 - 17.7 g/dL BFP INTERNAL Hematocrit 32.4(A) 40.0 - 53.0 % BFP INTERNAL MCV 95.1 78 - 100 fL BFP INTERNAL MCH 29.9 26 - 33 pg BFP INTERNAL MCHC 31.5 31 - 36 g/dL BFP INTERNAL RDW 12.0 % BFP INTERNAL Platelet Count 222 150 - 375 10^9/L BFP INTERNAL Blood 07/07/2023 12:0 5 PM CDT Adrian Montilla PA-C LAB - NON-Comeks BLO OD LABS Performing Organization Address [facility] Co de Phone Number BFP INTERNAL * (ABNORMAL) Basic Metabolic Panel (BFP) (07/07/2023) Carbon Dioxide 30.7 20 - 32 mmol/L BFP INTERNAL Creatinine 0.88 0.60 - 1.30 mg/dL BFP INTERNAL Glucose 111(A) 60 - 99 mg/dL BFP INTERNAL Sodium 136.5 135 - 146 mmol/L BFP INTERNAL Potassium 4.11 3.5 - 5.3 mmol/L BFP INTERNAL Chloride 102.9 98 - 110 mmol/L BFP INTERNAL Urea Nitrogen 14 7 - 25 mg/dL BFP INTERNAL Calcium 8.8 8.6 - 10.3 mg/dL BFP INTERNAL BUN/Creatinine Ratio 15.9 6 - 32 BFP INTERNAL Blood 07/07/2023 Adrian Montilla PA-C LAB - NON-HUGOCARLITA BLO OD LABS Performing Organization Address [facility]/ZIP Co de Phone Number BFP INTERNAL * EKG 12-lead complete w/read - Clinics (07/07/2023) 07/07/2023 Adrian Montilla PA-C ECG ORDERABLES Performing Organization Address [facility] Co de Phone Number BFP INTERNAL documented in this encounter Visit Diagnoses Diagnosis Pre-op exam- Primary Preoperative examination, unspecified Chronic bilateral low back pain without sciatica documented in this encounter Additional Health Concerns Assessment Noted Time PHQ-9 Depression Total Score: 2 06/10/20 20 5:42 PM CDT documented as of this encounter Care Teams Teacher Relationship Specialty Start Date End Date Carrie Vicente PA-C [address], [place] [address] [place] [id number] PCP - General Family Medicine 09/27/21 07/23/23 Carrie Vicente PA-C [address], [address] [place] [address] Assigned PCP 12/06/20 documented as of this encounter
--- OUTSIDE RECORDS SUMMARY | 2023-12-24 09:43 | XMS_ITS | Encounter Summary ---
Author Name Unknown Organization [facility] Address [address] [place] [address] Care Team Providers Care Desulfurizer Machine Name Role Phone Johnny Dunn MD Primary Care Provider Payton vailable Johnny Dunn MD Unavailable Unavailab Carrie Bradley PA-C Unavailable + [phone] Johnny Dunn MD Unavailable Unavailab Carrie Bradley PA-C Unavailable + [phone] Carrie Vicente PA-C Primary Care Provid er Candido Nichols MD Unavailable Un available [facility] Primary Care Provider Carrie Vicente PA-C Primary Care Provid er Barrie Hussein PA-C Primary Care Provider [phone] Reason for Visit * Reason Onset Date Comments MyChart Communication 06/19/2020 Encounter Details Date Type Department Care Team (Late st Contact Info) Description 06/19/2020 MyC Medical Advice [facility] [address] [place] [address] [address] [place] [address] Carrie Vicente PA-C [address] [facility] [address] [place], [place] [id number] MyChart Communication Social History Tobacco Use Types Packs/Day Years Used Date Smoking Tobacco: Former Smokeless Tobacco: Never Alcohol Use Standard Drinks/Week Comments Not Currently 0 (1 standard drink = 0.6 oz pur e alcohol) PHQ-2 Answer Date Recorded PHQ-2 Score 0 06/10/2020 Sex and Gender Information Value Date Recorded Sex Assigned at Not on file Gender Identity Not on file Sexual Orientation Not on file COVID-19 Exposure Response Date Recorded In the last month, have you been in contact with someone who was confirmed or suspected to have Coronavirus / COVID-19? No / Unsure 06/17/2020 9:45 AM CDT documented as of this encounter Plan of Treatment Not on file documented as of this encounter Visit Diagnoses Not on filedocumented in this encounter Additional Health Concerns Assessment Noted Time PHQ-9 Depression Total Score: 2 06/10/20 5:42 PM CDT documented as of this encounter Care Teams Desulfurizer Machine Relationship Specialty Start Date End Date Johnny Dunn MD PCP - General Family Practice 06/04/20 04/20/21 Carrie Vicente PA-C [address] [address] PCP - General Family Medicine 04/21/21 09/16/21 [place] PCP - General 09/17/21 09/26/21 Carrie Vicente PA-C [address] [address] PCP - General Family Medicine 09/27/21 07/23/23 Barrie Hussein PA-C [address] [address] PCP - General Family Medicine 07/24/23 Johnny Dunn MD [place]CTIVE IN [place] 03/05/2021 Assigned PCP 05/21/20 07/25/20 Carrie Vicente PA-C [address], [address] [place] [address] Assigned PCP 07/26/20 10/10/20 Johnny Dunn MD INACTIVE IN [place] 03/05/2021 Assigned PCP 10/11/20 12/05/20 Carrie Vicente PA-C [address], [address] [place] [address] Assigned PCP 12/06/20 Candido Nichols MD Assigned Heart and Vascular Provider 06/27/21 12/23/22 documented as of this encounter
--- OUTSIDE RECORDS SUMMARY | 2023-12-24 09:44 | XMS_ITS | Encounter Summary ---
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 [facility] Address [address] [place] [address] Support Name Relationship Address Phone ENRIQUE LIM Next of Kin [address] [place] [address] ENRIQUE LIM Emergency Contact [address] [facility] [place] [address] GENTRY LIM Next of Kin [address] [place] [address] GENTRY LIM Emergency Contact [address] [place] [address] Insurance Providers: All historical and current Section Date Range: From patient's date of to the date document was created. This section includes the names of all active insurance providers for the patient. Insurance Provider Type of Coverage Plan Name Start of Policy Coverage End of Policy Coverage Group Number Member ID Insurance Provider's Telephone Number Policy Doshi's Name Patient's Relationship to Policy Doshi [facility] MEDICARE SUPPLEMEN JAYNE MEDIC ARE SUPPL EMENT Nov 06, 2018 [id number] [phone] BONY LIM PATIENT [facility] ([facility]) MEDICARE ADVANTAGE SENIO R GOLD INDIV IDU Nov 06, 2016 [id number] [phone] BONY LIM PATIENT [facility] MEDICARE SUPPLEMEN JAYNE MEDIC ARE SUPPL EMENT Nov 06, 2018 [id number] [phone] BONY LIM PATIENT MEDICARE ([facility]) MEDICARE (M) PART A Apr 06, 2015 PART A [id number] [phone] BONY LIM PATIENT MEDICARE (WNR) MEDICARE (M) PART B Apr 06, 2015 PART B [id number] [phone] BONY LIM PATIENT Selected Encounter This section includes the information on record at [place] for the Encounter. Date/Time Encounter Type Encounter Description Reason Pro vider Source Jan 18, 2023 12:00 AM Outpatient Encounter EVENT (HISTORICAL) IHE Encounter Template Text not used by [place] Plan of Treatment: Future Appointments (+ 6 months) and Future Tests (+/- 45 days) The Plan of Treatment section includes future care activities for the patient from all [place] treatmentfacilities. This section includes future appointments and future orders which are active, pending or scheduled. Future Appointments This section includes appointments that were scheduled to occur 6 months from the date of the Encounter, up to a maximum of 20 appointments. The data comes from all [place] treatment facilities. Appointment Date/Time Appointment Type Appointme nt Facility Name April 04, 2023 11:30 AM AMBULATORY - MEDICINE [facility] Apr 25, 2023 09:00 AM AMBULATORY - MEDICINE [facility] Jul 03, 2023 11:00 AM AMBULATORY - MEDICINE [facility] Lab Results: +/- 30 days of the encounter This section includes the Chemistry and Hematology Lab Results on record with MA for the patient. Radiology Reports and Pathology Reports are provided separately, in subsequent sections. Lab Results This section contains the Chemistry/Hematology Results that were resulted 30 days before or 30 daysafter the date of the Encounter. Date/Time Source Result Type Result - Unit Interpretation Reference Range Comment Jan 18, 2023 10:51 AM [facility] HEMOGLOBIN A1C Specimen Type: BLOOD Comment: Values obtained from A1C measurements can vary. For typical A1C assays, a reported value of 7.0 could actually be between 6.7 and 7.3 if measured by a reference method. A reported value of 9.0 could actually be between 8.7 and 9.3. Ref: http://www.ngs p.org/CAPdata. asp Ordering Provider: JM YU Report Released Date/Time: Jan 18, 2023 10:39 AM Reporting Lab: [facility] [id number] Performing Lab: [facility] [id number] HEMOGLOBIN A1C 5.4 4.0-6.0 Jan 18, 2023 10:51 AM [facility] TSH W/REFLEX TO FREE T4 Specimen Type: PLASMA No comment entered. Ordering Provider: JM YU Report Released Date/Time: Jan 18, 2023 10:39 AM Reporting Lab: [facility] [id number] Performing Lab: [place] [id number] TSH 1.90 0.35-4.94 Jan 18, 2023 10:51 AM [facility] B 12 Specimen Type: SERUM No comment entered. Ordering Provider: JM YU Report Released Date/Time: Jan 18, 2023 10:39 AM Reporting Lab: [facility] [id number] Performing Lab: [place] [id number] [phone] Jan 18, 2023 10:51 AM [facility] LIPID PANEL,NON-FASTING Specimen Type: PLASMA No comment entered. Ordering Provider: JM YU Report Released Date/Time: Jan 18, 2023 10:39 AM Reporting Lab: [facility] [id number] Performing Lab: [facility] [id number] CHOLESTEROL 135 <199 .HDL 55 >40 LDL CALCULATION 70 <99 VLDL CALCULATION 10 <29 NON HDL CHOLESTEROL 80 <129 TRIG(NON FASTING) 52 <149 Jan 18, 2023 10:51 AM [facility] CBC Specimen Type: BLOOD No comment entered. Ordering Provider: JM YU Report Released Date/Time: Jan 18, 2023 10:39 AM Reporting Lab: [facility] [id number] Performing Lab: [facility] [id number] WBC 5.84 4.0-11.0 RBC 3.95 L 4.6-6.2 HGB 11.3 L 13.5-17.9 HCT 36.9 L 41-54 MCV 93.4 80-100 MCH 28.6 27-33 MCHC 30.6 L 32.0-37.5 PLT 250 150-400 MPV 11.6 H 7.4-10.4 RDW 12.3 11.5-14.5 Jan 18, 2023 10:51 AM [facility] BASIC METABOLIC PANEL+MG Specimen Type: PLASMA No comment entered. Ordering Provider: JM YU Report Released Date/Time: Jan 18, 2023 10:39 AM Reporting Lab: [facility] [id number] Performing Lab: [facility] [phone] CREATININE 0.8 0.7-1.2 UREA NITROGEN 14 8-26 GLUCOSE 95 70-100 SODIUM 138 136-145 POTASSIUM 4.3 3.5-5.1 CHLORIDE 106 98-107 CO2 27 22-29 CALCIUM 8.8 8.4-10.2 MAGNESIUM 2.0 1.6-2.6 ANION GAP 5 5-15 CREAT EGFR(CKD-EPI) >90 >60 Social History: Smoking Status (Most current) and Tobacco Use (All prior to encounter date) This section includes the most current, and the historical, smoking and tobacco- related health factors from the [place] facility where the Encounter took place. Current Smoking Status This section includes the most current smoking, or tobacco-related health factor, from the [place] facility where the Encounter took place. Date/Time Current Smoking Status Comment Facil ity Apr 06, 2009 11:02 AM FORMER TOBACCO USER 7Y OR GREATE R [facility] Tobacco Use History This section includes a history of the smoking, or tobacco-related health factors, that were collected on or before the date of the Encounter. The data comes from the [place] facility where the Encounter took place. Date/Time Smoking Status/Tobacco Use Comment F acility Apr 09, 2008 09:43 AM FORMER TOBACCO USE >1Y <7Y [facility] Apr 17, 2007 08:30 AM FORMER TOBACCO USE >1Y <7Y [facility] Advance Directives: All historical and current Section Date Range: From patient's date of to the date document was created. This section includes ALL of a patient's completed or amended [place] Advance and Rescinded Directives. The entries below indicate that a directive exists for the patient, but an actual copy is not included with this document. The data comes from all [facility]. Date Advance Directives Provider Source Sep 11, 2014 CLINICAL WARNING COURTNEY TRAVIS [facility] Dec 17, 2003 ADVANCE DIRECTIVE ANA MCNEIL [facility]
--- OUTSIDE RECORDS SUMMARY | 2023-12-24 09:44 | XMS_ITS | Continuity of Care Document ---
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 It does not include entries that were removed or entered in error. Problem Status Onset Date Problem Type Date of Resolution Comments Source Chronic gastritis Active 05/01/20 15 Condition May 02, 2015 Entered By: ISABELA PUGA Comment: EGD/biopsies at [facility] 05/01/15 - continue PPIJul 2014 Entered By: ISABELA PUGA Comment: H pylori neg [facility] Polyp of colon Active 12/11/19 12 Condition May 12, 2014 Entered By: ISABELA PUGA Comment: tubular adenoma 11/10/11 [place] colonoscopy - rpt 7 2022 Entered By: JM YU Comment: Colonoscopy completed 04/25/2023- no more needed as per GI [facility] Anemia (SNOMED CT 097744074) Active Condition [facility] Chronic pain Active Condition Nov 10, 2021 Entered By: SURESH GRANT I Comment: Generalized to left arm, left neck, right leg, and low back. Sees pain clinic outside [facility] COR ATHEROSCL UNSP TYP-VES Active Condition [facility] Coronary artery disease (SNOMED CT 49668788) Active Condition Jun 19, 2003 Entered By: CRISTIANO BETANCOURT Comment: AMI, BI DATA ARCHITECT,stent LAD 2002 Entered By: CRISTIANO BETANCOURT Comment: S/P CABG X 3 1996Ju2013 Entered By: ISABELA PUGA Comment: presented with chest pain; collapse while hiking 1994 [facility] Degen LS Disc Active Condition May Entered By: ISABELA PUGA Comment: lumbar fusion 2008 at [facility] w bilat calf pain [facility] Esophageal reflux (SNOMED CT 596633103) Active Condition [facility] Family social history Active Condition Jan 18, 2023 Entered By: JM YU Comment: Family HistoryJan 18, 2023 Entered By: JM YU Comment: father: d[address] [place]; DM,mother: d80s, DM; breast CA,1 sister: healthyJan 18, 2023 Entered By: JM YU Comment: Social HistoryJan 18, 2023 Entered By: JM YU Comment: Tobacco use: quit 1980sJan 18, 2023 Entered By: JM YU Comment: Alcohol use: 1-2 drinks/monthMa 2022 Entered By: JM YU Comment: Marital Status: 2nd marriageJan 18, 2023 Entered By: JM YU Comment: home with Neha umanzor; 3 daughters with prior relationship - living nearby (2 work with him)Jan 18, 2023 Entered By: JM YU Comment: 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, 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 [facility] History of myocardial infarction Active Condition Nov 10, 2021 Entered By: SURESH GRANT I Comment: 1994 while hiking fatoumata Gutiérrez [facility] Hyperlipidemia (SNOMED CT 31651429) Active Condition [facility] Hypertensive disorder Active Condition [facility] Idiopathic chronic neuropathy (SNOMED CT 975602742) Active Condition [facility] Pain of left shoulder joint Active Condition [facility] Pain, Low Back Active Condition Jun 062002 Entered By: CRISTIANO BETANCOURT Comment: [id number], Surgery at [place] 1992 [facility] Pain, Shoulder joint Active Condition Jun 19, 2003 Entered By: CRISTIANO BETANCOURT Comment: Lt shoulder, f/b ortho.. [facility] Thyroid nodule Active Condition Apr 072014 Entered By: ISABELA PUGA Comment: bilat nodule bx 04/21/15 - benign [facility] Appendectomy Inactive Condition 05/12/2014Jun Entered By: CRISTIANO BETANCOURT Comment: 2002 [facility] INTERMED CORONARY SYND Inactive Condition 06/19/2003 [facility] Diagnosis: ICD-10-CM I25.10 Athscl heart disease of [place] coronary artery w/o ang pctrs Active Diagnosis [facility] Diagnosis: ICD-10-CM I10 Essential (primary) hypertension Active Diagnosis [facility] Diagnosis: ICD-10-CM D12.5 Benign neoplasm of sigmoid colon Active Diagnosis [facility] Diagnosis: ICD-10-CM E53.8 Deficiency of other specified B group vitamins Active Diagnosis [facility] Medications Combined list of outpatient medications from Department of Defense and Veterans Affairs facilities.Medications provided include 1) outpatient medications from the last 15 months, and 2) patient-reported medications. Medication Details Route Status Patient Instructions Prescription Expires Prescription Number Last Dispense Date Ordering Provider Order Date Source ATORVASTATI N CA 80MG TAB TAKE ONE-HALF TABLET BY MOUTH EVERY DAY FOR CHOLESTE ROL ORALLY ACTIVE 01/19/2024 [id number] NALLUSAMY ,VASUMATH I 2022 [facility] BISACODYL 5MG TAB,EC TAKE TWO TABLETS BY MOUTH DIRECTED FOR COLON PREP ORALLY 02/28/2023 [id number] SHAYE AUGUST 2022 [facility] BUPRENORPHI NE 75MCG FILM,BUCCAL DISSOLVE 1 STRIP BETWEEN CHEEK AND GUM UNTIL DISSOLVE D EVERY DAY BUCCAL ACTIVE NALLUSAMY ,VASUMATH I 2022 [facility] CYANOCOBALA MIN 1000MCG TAB TAKE ONE TABLET BY MOUTH EVERY DAY FOR LOW B12 ORALLY ACTIVE 01/19/2024 [id number] 4 NALLUSAMY ,VASUMATH I 2022 [facility] HYDROMORPHO NE HCL 2MG TAB TAKE ONE TABLET BY MOUTH EVERY 4 HOURS NEEDED ORALLY ACTIVE RUDY,RHO NDA I 2021 [facility] IBUPROFEN 600MG TAB TAKE ONE TABLET BY MOUTH PRN ORALLY ACTIVE VIVIENRASHMI CONTRERAS I L 2014 [facility] METOPROLOL SUCCINATE 100MG TAB,SA TAKE ONE TABLET BY MOUTH EVERY DAY FOR HEART HEALTH ORALLY DISCONT INUED (EDIT) 03/13/2024 [id number] FLOR BOYD 2022 [facility] METOPROLOL SUCCINATE 25MG TAB,SA TAKE ONE TABLET BY MOUTH EVERY DAY FOR HEART HEALTH ORALLY 08/03/2023 [id number] NEIL BOYER 2022 [facility] OXYCODONE HCL 10MG TAB,SA TAKE ONE TABLET BY MOUTH EVERY DAY ORALLY ACTIVE ELBA GRANT NDA I 2021 [facility] PEG-3350/EL ECTROLYTES PWDR TAKE ONE CONTAINE R BY MOUTH DIRECTED FOR COLON PREP ORALLY 02/28/2023 [id number] SHAYE AUGUST 2022 [facility] TERAZOSIN HCL 2MG CAP TAKE THREE CAPSULES BY MOUTH AT BEDTIME ORALLY ACTIVE 01/19/2024 [id number] 3 COURTNEY YU I 2022 [facility] Allergies, Adverse Reactions, Alerts Combined list of allergies from Department of Defense and Veterans Affairs facilities. It does not include entries that were removed or entered in error. Substance Category Reaction Severity Reaction type Status Date Reported Comments Source PENICILLIN Propensity to adverse reactions to drug (finding) active 9 [facility] SULFA DRUGS Propensity to adverse reactions to drug (finding) Eruption active 5 [facility] Immunizations Combined list of available immunizations from the Department of Defense and Veterans Affairs facilities. Immunization Series Date Given Administered By Site Reaction Lot Number CVX Code Drug Locomotive Repairer Diesel Status Comments Source COVID-19 (YumDots), MRNA, LNP-S, BIVALENT BOOSTER, PF, 30 MCG/0.3 ML DOSE 1 2022 GEBREKIRSTOS, TIM E RIGHT DELTO ID [id number] 300 complet ed [facility] INFLUENZA VACCINE, QUADRIVALENT, ADJUVANTED 2021 205 complet ed [facility] INFLUENZA, UNSPECIFIED FORMULATION 2021 88 complet ed [facility] INFLUENZA, INJECTABLE, QUADRIVALENT, PRESERVATIVE FREE 2021 150 complet ed [facility] COVID-19 (YumDots), MRNA, LNP-S, PF, 30 MCG/0.3 ML DOSE 3 2020 208 complet ed PFR; [id number]; 2 [facility] COVID-19 (MODERNA), MRNA, LNP-S, PF, 100 MCG/0.5 ML DOSE 2 2020 207 complet ed MOD: [id number]; 1 [facility] COVID-19 (MODERNA), MRNA, LNP-S, PF, 100 MCG/0.5ML DOSE OR 50 MCG/0.25ML DOSE 2020 207 complet ed [facility] COVID-19 (MODERNA), MRNA, LNP-S, PF, 100 MCG/0.5 ML DOSE 1 2020 207 complet ed MOD; [id number]; 1 [facility] INFLUENZA, INJECTABLE, QUADRIVALENT, PRESERVATIVE FREE 2019 150 complet ed [facility] ZOSTER RECOMBINANT 2019 187 complet ed [facility] ZOSTER RECOMBINANT 2 2019 187 complet ed [facility] INFLUENZA, SEASONAL, INJECTABLE, PRESERVATIVE FREE 2018 140 complet ed [facility] ZOSTER RECOMBINANT 1 2018 187 complet ed [facility] INFLUENZA, SEASONAL, INJECTABLE, PRESERVATIVE FREE 2017 140 complet ed [facility] PNEUMOCOCCAL POLYSACCHARID E PPV23 2016 33 complet ed [employer] lot:[id number] exp: [facility] PNEUMOCOCCAL CONJUGATE PCV 13 2015 133 complet ed wyeth lot [id number] exp 07/23 [facility] INFLUENZA, SEASONAL, INJECTABLE, PRESERVATIVE FREE 2015 140 complet ed [facility] INFLUENZA, UNSPECIFIED FORMULATION 2013 88 complet ed [facility] INFLUENZA, UNSPECIFIED FORMULATION 2012 88 complet ed [facility] TDAP 2012 MADELINE DEGROOT Y 115 complet ed [facility] ZOSTER LIVE 2012 121 complet ed [employer] Lot# [id number] Exp.Date- - 4 [facility] INFLUENZA, UNSPECIFIED FORMULATION 2011 88 complet ed [facility] PNEUMOCOCCAL, UNSPECIFIED FORMULATION 2010 109 complet ed [employer], [id number] [facility] INFLUENZA, UNSPECIFIED FORMULATION 2009 88 complet ed [facility] PNEUMOCOCCAL POLYSACCHARID E PPV23 2007 33 complet ed [facility] TD (ADULT), 2 LF TETANUS TOXOID, PRESERVATIVE FREE, ADSORBED 2005 09 complet ed [facility] INFLUENZA (HISTORICAL) 2002 88 complet ed [facility] TETANUS TOXOID, UNSPECIFIED FORMULATION 2002 112 complet ed [facility] Results Combined list of recent chemistry, hematology and other laboratory results from Department of Defense and Veterans Affairs, ranging from 15 months to all on record, depending upon the facility. Order Name Results Value Reference Range Date Interpretation Specimen Comments Source B 12 COBALAMIN (VITAMIN B12) [MASS/VOLUM E] IN SERUM OR PLASMA 321 213 - 816 01/18 Specimen Type: SERUM No comment entered. Ordering Provider: Raisa YU Report Released Date/Time: Jan 18, 2023 10:39 AM Reporting Lab: [facility] [address] Performing Lab: [facility] [address] [facility] BASIC METABOLIC PANEL+MG CREATININE [MASS/VOLUM E] IN SERUM OR PLASMA 0.8 0.7 - 1.2 01/18 Specimen Type: PLASMA No comment entered. Ordering Provider: Raisa YU Report Released Date/Time: Jan 18, 2023 10:39 AM Reporting Lab: [facility] [address] Performing Lab: [facility] [address] [facility] BASIC METABOLIC PANEL+MG UREA NITROGEN [MASS/VOLUM E] IN SERUM OR PLASMA 14 8 - 26 01/18 Specimen Type: PLASMA No comment entered. Ordering Provider: Raisa YU Report Released Date/Time: Jan 18, 2023 10:39 AM Reporting Lab: [facility] [address] Performing Lab: [facility] [address] [facility] BASIC METABOLIC PANEL+MG GLUCOSE [MASS/VOLUM E] IN SERUM OR PLASMA 95 70 - 100 01/18 Specimen Type: PLASMA No comment entered. Ordering Provider: Raisa YU Report Released Date/Time: Jan 18, 2023 10:39 AM Reporting Lab: [facility] [address] Performing Lab: [facility] [address] [facility] BASIC METABOLIC PANEL+MG SODIUM [MOLES/VOLU ME] IN SERUM OR PLASMA 138 136 - 145 01/18 Specimen Type: PLASMA No comment entered. Ordering Provider: Raisa YU Report Released Date/Time: Jan 18, 2023 10:39 AM Reporting Lab: [facility] [address] Performing Lab: [facility] [address] [facility] BASIC METABOLIC PANEL+MG POTASSIUM [MOLES/VOLU ME] IN SERUM OR PLASMA 4.3 3.5 - 5.1 01/18 Specimen Type: PLASMA No comment entered. Ordering Provider: Raisa YU Report Released Date/Time: Jan 18, 2023 10:39 AM Reporting Lab: [facility] [address] Performing Lab: [facility] [address] [facility] BASIC METABOLIC PANEL+MG CHLORIDE [MOLES/VOLU ME] IN SERUM OR PLASMA 106 98 - 107 01/18 Specimen Type: PLASMA No comment entered. Ordering Provider: Raisa YU Report Released Date/Time: Jan 18, 2023 10:39 AM Reporting Lab: [facility] [address] Performing Lab: [facility] [address] [facility] BASIC METABOLIC PANEL+MG CARBON DIOXIDE, TOTAL [MOLES/VOLU ME] IN SERUM OR PLASMA 27 22 - 29 01/18 Specimen Type: PLASMA No comment entered. Ordering Provider: Raisa YU Report Released Date/Time: Jan 18, 2023 10:39 AM Reporting Lab: [facility] [address] Performing Lab: [facility] [address] [facility] BASIC METABOLIC PANEL+MG CALCIUM [MASS/VOLUM E] IN SERUM OR PLASMA 8.8 8.4 - 10.2 01/18 Specimen Type: PLASMA No comment entered. Ordering Provider: Raisa YU Report Released Date/Time: Jan 18, 2023 10:39 AM Reporting Lab: [facility] [address] Performing Lab: [facility] [address] [facility] BASIC METABOLIC PANEL+MG MAGNESIUM [MASS/VOLUM E] IN SERUM OR PLASMA 2.0 1.6 - 2.6 01/18 Specimen Type: PLASMA No comment entered. Ordering Provider: Raias YU Report Released Date/Time: Jan 18, 2023 10:39 AM Reporting Lab: [facility] [address] Performing Lab: [facility] [address] [facility] BASIC METABOLIC PANEL+MG ANION GAP IN SERUM OR PLASMA 5 5 - 15 01/18 Specimen Type: PLASMA No comment entered. Ordering Provider: Raisa YU Report Released Date/Time: Jan 18, 2023 10:39 AM Reporting Lab: [facility] [address] Performing Lab: [facility] [address] [facility] BASIC METABOLIC PANEL+MG GLOMERULAR FILTRATION RATE/1.73 SQ M.PREDICTED [VOLUME RATE/AREA] IN SERUM, PLASMA OR BLOOD BY CREATININE- BASED FORMULA (CKD-EPI) >90 60 01/18 Specimen Type: PLASMA No comment entered. Ordering Provider: Raisa YU Report Released Date/Time: Jan 18, 2023 10:39 AM Reporting Lab: [facility] [address] Performing Lab: [facility] [address] [facility] CBC LEUKOCYTES [#/VOLUME] IN BLOOD BY AUTOMATED COUNT 5.84 4.0 - 11.0 01/18 Specimen Type: BLOOD No comment entered. Ordering Provider: Raisa YU Report Released Date/Time: Jan 18, 2023 10:39 AM Reporting Lab: [facility] [address] Performing Lab: [facility] [address] [facility] CBC ERYTHROCYTE S [#/VOLUME] IN BLOOD BY AUTOMATED COUNT 3.95 4.6 - 6.2 01/18 L Specimen Type: BLOOD No comment entered. Ordering Provider: Raisa YU Report Released Date/Time: Jan 18, 2023 10:39 AM Reporting Lab: [facility] [address] Performing Lab: [facility] [address] [facility] CBC HEMOGLOBIN [MASS/VOLUM E] IN BLOOD 11.3 13.5 - 17.9 01/18 L Specimen Type: BLOOD No comment entered. Ordering Provider: Raisa YU Report Released Date/Time: Jan 18, 2023 10:39 AM Reporting Lab: [facility] [address] Performing Lab: [facility] [address] [facility] CBC HEMATOCRIT [VOLUME FRACTION] OF BLOOD BY AUTOMATED COUNT 36.9 41 - 54 01/18 L Specimen Type: BLOOD No comment entered. Ordering Provider: Raisa YU Report Released Date/Time: Jan 18, 2023 10:39 AM Reporting Lab: [facility] [address] Performing Lab: [facility] [address] [facility] CBC MCV [ENTITIC VOLUME] BY AUTOMATED COUNT 93.4 80 - 100 01/18 Specimen Type: BLOOD No comment entered. Ordering Provider: Raisa YU Report Released Date/Time: Jan 18, 2023 10:39 AM Reporting Lab: [facility] [address] Performing Lab: [facility] [address] [facility] CBC MCH [ENTITIC MASS] BY AUTOMATED COUNT 28.6 27 - 33 01/18 Specimen Type: BLOOD No comment entered. Ordering Provider: Raisa YU Report Released Date/Time: Jan 18, 2023 10:39 AM Reporting Lab: [facility] [address] Performing Lab: [facility] [address] [facility] CBC MCHC [MASS/VOLUM E] BY AUTOMATED COUNT 30.6 32.0 - 37.5 01/18 L Specimen Type: BLOOD No comment entered. Ordering Provider: Raisa YU Report Released Date/Time: Jan 18, 2023 10:39 AM Reporting Lab: [facility] [address] Performing Lab: [facility] [address] [facility] CBC PLATELETS [#/VOLUME] IN BLOOD BY AUTOMATED COUNT 250 150 - 400 01/18 Specimen Type: BLOOD No comment entered. Ordering Provider: Raisa YU Report Released Date/Time: Jan 18, 2023 10:39 AM Reporting Lab: [facility] [address] Performing Lab: [facility] [address] [facility] CBC PLATELET MEAN VOLUME [ENTITIC VOLUME] IN BLOOD BY AUTOMATED COUNT 11.6 7.4 - 10.4 01/18 H Specimen Type: BLOOD No comment entered. Ordering Provider: Raisa YU Report Released Date/Time: Jan 18, 2023 10:39 AM Reporting Lab: [facility] [address] Performing Lab: [facility] [address] [facility] CBC ERYTHROCYTE DISTRIBUTIO N WIDTH [RATIO] BY AUTOMATED COUNT 12.3 11.5 - 14.5 01/18 Specimen Type: BLOOD No comment entered. Ordering Provider: Raisa YU Report Released Date/Time: Jan 18, 2023 10:39 AM Reporting Lab: [facility] [address] Performing Lab: [facility] [address] [facility] HEMOGLOBI N A1C HEMOGLOBIN A1C/HEMOGLO BIN.TOTAL IN BLOOD 5.4 4.0 - 6.0 03/15 /2023 Specimen Type: BLOOD Comment: Values obtained from A1C measurement s can vary. For typical A1C assays, a reported value of 7.0 could actually be between 6.7 and 7.3 if measured by a reference method. A reported value of 9.0 could actually be between 8.7 and 9.3. Ref: http://www. ngsp.org/CA Pdata.asp Ordering Provider: Raisa YU Report Released Date/Time: Jan 18, 2023 10:39 AM Reporting Lab: [facility] [address] Performing Lab: [facility] [address] [facility] LIPID PANEL,NON -FASTING CHOLESTEROL [MASS/VOLUM E] IN SERUM OR PLASMA 135 <199 - 199 01/18 Specimen Type: PLASMA No comment entered. Ordering Provider: Raisa YU Report Released Date/Time: Jan 18, 2023 10:39 AM Reporting Lab: [facility] [address] Performing Lab: [facility] [address] [facility] LIPID PANEL,NON -FASTING CHOLESTEROL IN HDL [MASS/VOLUM E] IN SERUM OR PLASMA 55 40 01/18 Specimen Type: PLASMA No comment entered. Ordering Provider: Raisa YU Report Released Date/Time: Jan 18, 2023 10:39 AM Reporting Lab: [facility] [address] Performing Lab: [facility] [address] [facility] LIPID PANEL,NON -FASTING CHOLESTEROL IN LDL [MASS/VOLUM E] IN SERUM OR PLASMA BY CALCULATION 70 <99 - 99 01/18 Specimen Type: PLASMA No comment entered. Ordering Provider: Raisa YU Report Released Date/Time: Jan 18, 2023 10:39 AM Reporting Lab: [facility] [address] Performing Lab: [facility] [address] [facility] LIPID PANEL,NON -FASTING CHOLESTEROL IN VLDL [MASS/VOLUM E] IN SERUM OR PLASMA BY CALCULATION 10 <29 - 29 01/18 Specimen Type: PLASMA No comment entered. Ordering Provider: Raisa YU Report Released Date/Time: Jan 18, 2023 10:39 AM Reporting Lab: [facility] [address] Performing Lab: [facility] [address] [facility] LIPID PANEL,NON -FASTING CHOLESTEROL NON HDL [MASS/VOLUM E] IN SERUM OR PLASMA 80 <129 - 129 01/18 Specimen Type: PLASMA No comment entered. Ordering Provider: Raisa YU Report Released Date/Time: Jan 18, 2023 10:39 AM Reporting Lab: [facility] [address] Performing Lab: [facility] [address] [facility] LIPID PANEL,NON -FASTING TRIGLYCERID E [MASS/VOLUM E] IN SERUM OR PLASMA 52 <149 - 149 01/18 Specimen Type: PLASMA No comment entered. Ordering Provider: Raisa YU Report Released Date/Time: Jan 18, 2023 10:39 AM Reporting Lab: [facility] [address] Performing Lab: [facility] [address] [facility] TSH W/REFLEX TO FREE T4 THYROTROPIN [UNITS/VOLU ME] IN SERUM OR PLASMA 1.90 0.35 - 4.94 01/18 Specimen Type: PLASMA No comment entered. Ordering Provider: Raisa YU Report Released Date/Time: Jan 18, 2023 10:39 AM Reporting Lab: [facility] [address] Performing Lab: [facility] [address] [facility]AC[facility] DOMÍNGUEZ Vital Signs Combined list of inpatient and outpatient Vital Signs from Department of Defense and Veterans Affairs, ranging from 12 months to all on record, depending upon the facility. Vital Sign Value Date Comments Source SYSTOLIC BLOOD PRESSURE 129 01/18/2023 10:05:57 [facility] DIASTOLIC BLOOD PRESSURE 65 01/18/2023 10:05:57 [facility] PULSE OXIMETRY 98% 01/18/2023 10:05:57 S MALIK DOM[facility]Z WEIGHT 189 01/18/2023 10:05:57 [facility] BMI 28kg/m2 01/18/2023 10:05:57 [facility] PAIN 0 01/18/2023 10:05:57 [facility] HEIGHT 69 01/18/2023 10:05:57 [facility] TEMPERATURE 98.3 01/18/2023 10:05:57 [facility] PULSE 54 01/18/2023 10:05:57 [facility] RESPIRATION 16 01/18/2023 10:05:57 [facility] Encounters Combined list of: 1) Encounters from Department of [facility] facilities going back up to thelast 18 months. 2) Encounters from the Department of [facility] facilities going back up to 280 months. Location Location Details Encounter Type Encounter Number Reason For Visit Attending Provider ADM Date DC Date Status Disposition Source [facility] Outpatient Encounter [id number] 07/12 [place] [facility] [place] [facility] Outpatient Encounter [id number] 07/12 [place] [facility] [place] [facility] Outpatient [facility]counter [id number] 01/18 [facility] [place] [facility] OFF[facility] O/P EST MOD 30-39 MIN [id number] Diagnos is: ICD-10- CM E53.8 Deficie ncy of other specifi ed B group vitamin s
CUCO YU 01/18 [facility] [place] [facility] Outpatient Encounter [id number] 02/24 [facility] [place] [facility] QNHP OL DIG ASSMT&MGMT 11-20 [id number] Diagnos is: ICD-10- CM I10 Essenti al (primar y) hyperte nsion<b r/> FLOR VILLANUEVA 02/27 [place] [facility] HC PRO PHONE CALL 5-10 MIN [id number] Diagnos is: ICD-10- CM I10 Essenti al (primar y) hyperte nsion<b r/> BRAVO MENENDEZ 04/04 [facility] [place] [facility] Outpatient Encounter [id number] 04/21 [place] [facility] [place] [facility] INJ MIDAZOLAM HYDROCHLOR AMALIA [id number] Diagnos is: ICD-10- CM D12.5 Benign neoplas m of sigmoid colon<b r/> ANTONY LEDEZMA 04/25 [place] [facility] [place] [facility] Outpatient Encounter [id number] 04/25 [place] [facility] [place] [facility] Outpatient Encounter [id number] MAHOGANY BROOKS 04/26 [place] [facility] [place] [facility] Outpatient Encounter [id number] 06/13 [place] [facility] [facility] HC PRO PHONE CALL 11-20 MIN [id number] Diagnos is: ICD-10- CM I10 Essenti al (primar y) hyperte nsion<b r/> GLORIA BOYER M 07/03 [facility] HC PRO PHONE CALL 11-20 MIN [id number] Diagnos is: ICD-10- CM I25.10 Athscl heart disease of [place] coronar y artery w/o ang pctrs<b r/> BRAVO MENENDEZ 08/09 [facility] Social History Combined list of available smoking, tobacco, and other social history from Department of Defense and Veterans Affairs facilities. Social History Type Response Date Comment Sourc e Tobacco smoking status [facility] [place]-TOBACCO FORMER USER 01/18/2023 [facility] History of tobacco use [place] QU[place] 1 5 YRS OR MORE 01/18/2023 [facility] History of tobacco use [place] FOR[place] US[place] 11/10/2021 [facility] History of tobacco use [place] FOR[place] US[place] 10/09/2020 [facility] History of tobacco use [place] FORMER USER 08/29/2018 [facility] History of tobacco use FORMER TOBACCO US ER 7Y OR GREATER 10/17/2017 [facility] History of tobacco use FORMER TOBACCO US ER 7Y OR GREATER 06/20/2016 [facility] History of tobacco use FORMER TOBACCO US ER 7Y OR GREATER 04/10/2015 [facility] History of tobacco use FORMER TOBACCO US ER 7Y OR GREATER 05/12/2014 [facility] History of tobacco use FORMER TOBACCO US ER 7Y OR GREATER 04/06/2009 [facility] History of tobacco use FORMER TOBACCO US E >1Y <7Y 04/09/2008 [facility] History of tobacco use FORMER TOBACCO US E >1Y <7Y 04/17/2007 [facility] Advance Directives List of completed, amended, or rescinded Advance Directives on record at [facility] facilities. An actual copy of the Directive is not included. Date Advance Directive Provider Source 09/11/2014 CLINICAL WARNING COURTNEY TRAVIS [facility] 12/17/2003 ADVANCE DIRECTIVE ANA MCNEIL [facility]
--- OUTSIDE RECORDS SUMMARY | 2023-12-24 09:44 | XMS_ITS | Encounter Summary ---
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 [facility] Address [address] [place] [address] Support Name Relationship Address Phone ENRIQUE LIM Next of Kin [address] [place] [address] ENRIQUE LIM Emergency Contact [address] [place] [address] GENTRY LIM Next of Kin [address] [place] [phone] GENTRY LIM Emergency Contact [address] [place] [address] Insurance Providers: All historical and [...] Doshi's Name Patient's Relationship to Policy Doshi [place] SUPPLEMEN JAYNE MEDIC ARE SUPPL EMENT Nov 06, 2018 [id number] [phone] BONY LIM PATIENT [facility]) MEDICARE ADVANTAGE SENIO R GOLD INDIV IDU Nov 06, 2016 [id number] [phone] BONY LIM PATIENT [facility] MEDICARE SUPPLEMEN JAYNE MEDIC ARE SUPPL EMENT Nov 06, 2018 [id number] BONY LIM PATIENT MEDICARE ([facility]) MEDICARE () PART A Apr 06, 2015 PART A [id number] [phone] BONY LIM PATIENT MEDICARE (WNR) MEDICARE (M) PART B Apr 06, 2015 PART B [id number] [phone] BONY LIM PATIENT Selected Encounter This section includes the information on record at [place] for the Encounter. Date/Time Encounter Type Encounter Description Reason Pro vider Source Feb 24, 2023 02:38 PM Outpatient Encounter PRIMARY CARE/MEDICINE IHE Encounter Template Text not used by [place] Plan of Treatment: Future Appointments (+ 6 months) and Future Tests (+/- 45 days) The Plan of Treatment section includes future care activities for the patient from all [place] treatmentfacilities. This section includes future appointments and future orders which are active, pending or scheduled. Future Appointments This section includes appointments that were scheduled to occur 6 months from the date of the Encounter, up to a maximum of 20 appointments. The data comes from all [place] treatment facilities. Appointment Date/Time Appointment Type Appointme nt Facility Name April 04, 2023 11:30 AM AMBULATORY - MEDICINE [facility] Apr 25, 2023 09:00 AM [facility] Jul 03, 2023 11:00 AM [facility]ATORY - MEDICINE [facility] Aug 09, 2023 11:00 AM AMBULATORY - MEDICINE [facility] Social History: Smoking Status (Most current) and Tobacco Use (All prior to encounter date) This section includes the most current, and the historical, smoking and tobacco- related health factors from the [place] facility where the Encounter took place. Current Smoking Status This section includes the most current smoking, or tobacco-related health factor, from the [place] facility where the Encounter took place. Date/Time Current Smoking Status Comment Facil ity Apr 06, 2009 11:02 AM FORMER TOBACCO USER 7Y OR GREATE R [facility] Tobacco Use History This section includes a history of the smoking, or tobacco-related health factors, that were collected on or before the date of the Encounter. The data comes from the [place] facility where the Encounter took place. Date/Time Smoking Status/Tobacco Use Comment F acility Apr 09, 2008 09:43 AM FORMER TOBACCO USE >1Y <7Y [facility] Apr 17, 2007 08:30 AM FORMER TOBACCO USE >1Y <7Y [facility] Advance Directives: All historical and current Section Date Range: From patient's date of to the date document was created. This section includes ALL of a patient's completed or amended [place] Advance and Rescinded Directives. The entries below indicate that a directive exists for the patient, but an actual copy is not included with this document. The data comes from all [place] facilities. Date Advance Directives Provider Source Sep 11, 2014 CLINICAL WARNING TRAVISCOURTNEYTRACI VEGA [facility] Dec 17, 2003 ADVANCE DIRECTIVE ANA SHARMAINE Christopher [facility] Encounter Notes: All associated encounter notes This section contains the clinical notes associated to the Encounter. Date/Time Encounter Note(s) Provider Source Feb 24, 2023 02:38 PM PRIMARY CARE NURSI NG NOTE: LOCAL TITLE: [facility] NURSING PROGRESS NOTE STANDARD TITLE: PRIMARY CARE NURSING NOTE DATE OF NOTE: FEB 24, 2023@14:38 ENTRY DATE: FEB 24, 2023@14:38:15 AUTHOR: ALDEN LENZ EXP COSIGNER: URGENCY: STATUS: COMPLETED [facility] NURSING PROGRESS NOTE Has ADDENDA Date SBP DBP HR SBP DBP HR 16-Mar 126 71 63 110 56 52 Overall 17-Mar 102 49 61 112 45 52 [id number] 18-Mar 116 55 58 115 48 54 [id number] 19-Mar 118 57 49 119 58 50 [id number] 20-Mar 119 51 56 124 58 46 21-Mar 122 60 55 98 51 49 22-Mar 109 53 56 102 41 53 23-Mar 104 62 65 143 66 53 24-Mar 141 64 54 109 61 52 25-Mar 96 55 50 110 59 47 26-Mar 96 51 53 102 54 55 27-Mar 118 55 54 116 52 52 28-Mar 115 56 51 120 55 50 29-Mar 115 57 49 113 58 54 Average 114 57 55 114 54 51 Maximum 141 71 65 143 66 55 Minimum 96 49 49 98 41 46 Sent to PCP for review. /kristy/ ALDEN LENZ MA, TCT TCT HORACIO CBMARCY Signed: 02/24/2023 14:38 Receipt Acknowledged By: 02/25/2023 22:00 /RAJEEV Mejia DNP 02/25/2023 ADDENDUM STATUS: COMPLETED Routing to Pharm-d for assistance to deprescribe metoprolol /kristy/ RAJEEV QUINONEZ DNP Signed: 02/25/2023 22:01 Receipt Acknowledged By: * AWAITING SIGNATURE * RMABO BOYER,ALDEN LEONARD [facility]
--- OUTSIDE RECORDS SUMMARY | 2023-12-24 09:44 | XMS_ITS | Encounter Summary ---
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 [facility] Address [address] [place] [address] Support Name Relationship Address Phone ENRIQUE LIM Next of Kin [address] [place] [address] ENRIQUE LIM Emergency Contact [address] [place], [place] [address] GENTRY LIM Next of Kin [address] [place] [phone] GENTRY LIM Emergency Contact [address] [place] [address] Insurance Providers: All historical and [...] MEDIC ARE SUPPL EMENT Nov 06, 2018 [id number] BONY LIM PATIENT [facility] MEDICARE ADVANTAGE SENIO R GOLD INDIV IDU Nov 06, 2016 [id number] [phone] BONY LIM PATIENT [facility] MEDICARE SUPPLEMEN JAYNE MEDIC ARE SUPPL EMENT Nov 06, 2018 [id number] BONY LIM PATIENT MEDICARE ([facility]) MEDICARE (M) PART A Apr 06, 2015 PART A [id number] [phone] BONY LIM PATIENT MEDICARE ([facility]) MEDICARE (M) PART B Apr 06, 2015 PART B [id number] [phone] BNOY LIM PATIENT Selected Encounter This section includes the information on record at [place] for the Encounter. Date/Time Encounter Type Encounter Description Reason Provider Source Feb 27, 2023 09:23 AM QNHP OL DIG ASSMT&MGMT 11-20 CLINICAL PHARMACY ICD-10-CM I10 Essential (primary) hypertension MILAGROS VILLANUEVA MA IHE Encounter Template Text not used by [place] Assessments - Encounter Diagnoses This section includes the primary and secondary diagnoses documented for the Encounter. Date/Time Primary/Secondary Diagnosis Diagnosis Name Provider Source Feb 27, 2023 09:29 AM PRIMARY Essential (primary) hypertension MILAGROS VILLANUEVA MA [facility] Plan of Treatment: Future Appointments (+ 6 months) and Future Tests (+/- 45 days) The Plan of Treatment section includes future care activities for the patient from all [place] treatmentfacilities. This section includes future appointments and future orders which are active, pending or scheduled. Future Appointments This section includes appointments that were scheduled to occur 6 months from the date of the Encounter, up to a maximum of 20 appointments. The data comes from all [place] treatment facilities. Appointment Date/Time Appointment Type Appointme nt Facility Name April 04, 2023 11:30 AM AMBULATORY - MEDICINE [facility] Apr 25, 2023 09:00 AM AMBULATORY - MEDICINE [facility] Jul 03, 2023 11:00 AM AMBULATORY - MEDICINE [facility] Aug 09, 2023 11:00 AM [facility] Social History: Smoking Status (Most current) and Tobacco Use (All prior to encounter date) This section includes the most current, and the historical, smoking and tobacco- related health factors from the [place] facility where the Encounter took place. Current Smoking Status This section includes the most current smoking, or tobacco-related health factor, from the [place] facility where the Encounter took place. Date/Time Current Smoking Status Comment Facil ity Apr 06, 2009 11:02 AM FORMER TOBACCO USER 7Y OR GREATE R [facility] Tobacco Use History This section includes a history of the smoking, or tobacco-related health factors, that were collected on or before the date of the Encounter. The data comes from the [place] facility where the Encounter took place. Date/Time Smoking Status/Tobacco Use Comment F acility Apr 09, 2008 09:43 AM FORMER TOBACCO USE >1Y <7Y [facility] Apr 17, 2007 08:30 AM FORMER TOBACCO USE >1Y <7Y [facility] Advance Directives: All historical and current Section Date Range: From patient's date of to the date document was created. This section includes ALL of a patient's completed or amended [place] Advance and Rescinded Directives. The entries below indicate that a directive exists for the patient, but an actual copy is not included with this document. The data comes from all [place] facilities. Date Advance Directives Provider Source Sep 11, 2014 CLINICAL WARNING COURTNEY TRAVIS [facility] Dec 17, 2003 ADVANCE DIRECTIVE ANA MCNEIL [facility] Encounter Notes: All associated encounter notes This section contains the clinical notes associated to the Encounter. Date/Time Encounter Note(s) Provider Source Feb 27, 2023 09:23 AM PHARMACY NOTE: LOCAL TITLE: PHARMACOTHERAPY-CLINICAL PHARMACY NOTE STANDARD TITLE: PHARMACY NOTE DATE OF NOTE: FEB 27, 2023@09:23 ENTRY DATE: FEB 27, 2023@09:23:57 AUTHOR: FLOR VILLANUEVA COSIGNER: URGENCY: STATUS: COMPLETED PHARMACOTHERAPY-CLINICAL PHARMACY NOTE Has ADDENDA CHART REVIEW SUBJECTIVE: Alerted by PACT to review home BP readings to see if patient candidate for beta earl deprescribing. Home BP Readings: copied from nursing notes Date SBP DBP HR SBP DBP HR 16-Jan 126 71 63 110 56 52 Overall 17-Jan 102 49 61 112 45 52 [id number] 18-Jan 116 55 58 115 48 54 [id number] 19-Jan 118 57 49 119 58 50 [id number] 20-Jan 119 51 56 124 58 46 21-Jan 122 60 55 98 51 49 22-Jan 109 53 56 102 41 53 23-Jan 104 62 65 143 66 53 24-Jan 141 64 54 109 61 52 25-Jan 96 55 50 110 59 47 26-Jan 96 51 53 102 54 55 27-Jan 118 55 54 116 52 52 28-Jan 115 56 51 120 55 50 29-Jan 115 57 49 113 58 54 Average 114 57 55 114 54 51 Maximum 141 71 65 143 66 55 Minimum 96 49 49 98 41 46 OBJECTIVE: ALLERGIES/ADR: PENICILLIN (Apr 28, 1999) MEDICATION RECONCILIATION: Active and Recently Outpatient Medications (excluding Supplies): Active Outpatient Medications Status 1) ATORVASTATIN CALCIUM 80MG TAB TAKE ONE-HALF TABLET BY ACTIVE MOUTH EVERY DAY FOR CHOLESTEROL 2) BISACODYL 5MG EC TAB TAKE TWO TABLETS BY MOUTH ACTIVE DIRECTED FOR COLON PREP 3) COLON ELECTROLYTE LAVAGE PWD FOR SOLN TAKE ONE ACTIVE CONTAINER BY MOUTH DIRECTED FOR COLON PREP 4) CYANOCOBALAMIN 1000MCG TAB TAKE ONE TABLET BY MOUTH ACTIVE EVERY DAY FOR LOW B12 5) TERAZOSIN HCL 2MG CAP TAKE THREE CAPSULES BY MOUTH AT ACTIVE BEDTIME rx: metoprolol SA 200mg PO daily Active Non-VA Medications Status 1) Non-VA BUPRENORPHINE 75MCG BUCCAL FILM 75MCG CHEEK ACTIVE AND GUM UNTIL DISSOLVED EVERY DAY 2) Non-VA HYDROMORPHONE 2MG TAB 2MG MOUTH EVERY 4 HOURS ACTIVE NEEDED 3) Non-VA IBUPROFEN 600MG TAB 600MG MOUTH NEEDED ACTIVE 4) Non-VA OXYCODONE 10MG SA TAB 10MG MOUTH EVERY DAY ACTIVE 9 Total Medications Vitals: Temperature: 98.3 F [36.8 C] (01/18/2023 10:05) Blood Pressure: 129/65 (01/18/2023 10:05) Pulse: 54 (01/18/2023 10:05) Respiration: 16 (01/18/2023 10:05) Pain: 0 (01/18/2023 10:05) Height: 69 in [175.3 cm] (01/18/2023 10:05) Weight: 189 lb [85.73 kg] (01/18/2023 10:05) BMI: 28.0 Measurement DT BP 01/18/2023 10:05 129/65 11/10/2021 09:18 132/75 10/09/2020 09:12 122/80 LABS: Basic Metabolic Panel SODIUM 138 (01/18/23) POTASSIUM 4.3 (01/18/23) CREATININE 0.8 (01/18/23) UREA NITROGEN 14 (01/18/23) GLUCOSE 95 (01/18/23) CO2 27 (01/18/23) CHLORIDE 106 (01/18/23) EGFR (06/09) 11/10/21 @ 0958 83 CREATININE EGFR (CKD-EPI) 01/18/23 @ 1051 >90 MAGNESIUM 2.0 (01/18/23) Collection DT Specimen Test Name Result Units Ref Range 01/18/2023 10:51 PLASMA CREATININE 0.8 mg/dL 0.7 - 1.2 11/10/2021 09:58 PLASMA CREATININE 0.9 mg/dL 0.7 - 1.2 10/09/2020 09:46 PLASMA CREATININE 0.9 mg/dL 0.7 - 1.2 01/18/2023 10:51 PLASMA .CREAT EGFR(CKD-E >90 Ref: >=60 11/10/2021 09:58 PLASMA ESTIMATED GFR(eGF >60 Ref: >=60 10/09/2020 09:46 PLASMA ESTIMATED GFR(eGF >60 Ref: >=60 10/15/2019 10:42 PLASMA ESTIMATED GFR(eGF >60 Ref: >=60 -- ASSESSMENT: #HTN - Goal <140/90 mmHg per JNC8 guidelines; <130/80 mmHg per 2017 ACC/AHA guidelines if can tolerate without hypotension Majority of home BP at goal with pulse/HR dipping into the 40s. Recommend decreasing beta earl. RECOMMENDATIONS: -Decrease to metoprolol SA 100mg PO daily *Please ask patient if needs new rx sent (ok to split current 200mg tablets in half to use up current supply) -Will ask RN to follow up with patient in 4-6 weeks Time spent on chart review: 11-20 minutes /kristy/ FLOR VILLANUEVA PHARMD, BCPS, BCACP [id number] Signed: 02/27/2023 09:30 Receipt Acknowledged By: 03/10/2023 17:12 /kristy/ EZE CABRERA RN REGISTERED NURSE 03/10/2023 ADDENDUM STATUS: COMPLETED contacted per PharmD alert, identifiable information provided. Unit Clerk reviewed recent readings and PharmD recommendations. Majority of home BP at goal with pulse/HR dipping into the 40s. Recommend decreasing beta earl. RECOMMENDATIONS: -Decrease to metoprolol SA 100mg PO daily *Please ask patient if needs new rx sent (ok to split current 200mg tablets in half to use up current supply) Pt is agreeable with lowering BB (Metoprolol) to 100 mg daily. [place] stated he is doing well overall, no concerns reported, however pt. stated he does occasionally feel tired and wonders if decreasing his medication dose will make a different in fatigue level. Pt was informed the dose change may affect overall fatigue, and that he should monitor until his next appt. Again, no acute concerns reported, no shortness of breath, chest pain, edema, etc. Pt is aware he can split current tablets in half until his new supply arrives. [place] was advised to read the label closely when he receives the new medication supply, as pharmacy may send 100 mg tablets. Pt would then increase to a full tablet at that time. PLAN: Alerting PharmD to please update prescription for Metoprolol succinate to 100 mg daily as discussed. 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 [place] will check BP twice daily, noting HR until appt with RN. [place] was scheduled on 04/04 @ 1130. Pt to call the clinic if any questions or concerns arise prior to next appt. Pt verbalized agreement with plan of care PACT will remain available to assist as needed. /gilson CABRERA RN REGISTERED NURSE Signed: 03/10/2023 17:25 Receipt Acknowledged By: * AWAITING SIGNATURE * FLOR VILLANUEVA JEMA M [facility]
--- OUTSIDE RECORDS SUMMARY | 2023-12-24 09:44 | XMS_ITS | Encounter Summary ---
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 [facility] [employer] Address [address] [place] [address] Support Name Relationship Address Phone ENRIQUE LIM Next of Kin [address] [place] [address] ENRIQUE LIM Emergency Contact [address] [place] [address] GENTRY LIM Next of Kin [address] [place] [phone] GENTRY LIM Emergency Contact [address] [place] [phone] Insurance Providers: All historical and current [...] Doshi's Name Patient's Relationship to Policy Doshi [facility] MEDICARE SUPPLEMEN JAYNE MEDIC ARE SUPPL EMENT Nov 06, 2018 [id number] [phone] BONY LIM PATIENT [facility] MEDICARE ADVANTAGE SENIO R GOLD INDIV IDU Nov 06, 2016 [id number] [phone] BONY LIM PATIENT [facility] MEDICARE SUPPLEMEN JAYNE MEDIC ARE SUPPL EMENT Nov 06, 2018 [id number] BONY LIM PATIENT MEDICARE ([facility]) MEDICARE (M) PART A Apr 06, 2015 PART A [id number] [phone] BONY LIM PATIENT MEDICARE ([facility]) MEDICARE (M) PART B Apr 06, 2015 PART B [id number] [phone] BONY LIM PATIENT Selected Encounter This section includes the information on record at [place] for the Encounter. Date/Time Encounter Type Encounter Description Reason Provider Source April 04, 2023 11:30 AM HC PRO PHONE CALL 5-10 MIN TELEPHONE PRIMARY CARE ICD-10-CM I10 Essential (primary) hypertension DELTA MENENDEZLETITIA Mane IHOpal Encounter Template Text not used by [place] Assessments - Encounter Diagnoses This section includes the primary and secondary diagnoses documented for the Encounter. Date/Time Primary/Secondary Diagnosis Diagnosis Name Provider Source April 04, 2023 11:30 AM PRIMARY Essential (primary) hypertension REMDEDELTAOMAIRALETITIA LEONARD [facility] Plan of Treatment: Future Appointments (+ 6 months) and Future Tests (+/- 45 days) The Plan of Treatment section includes future care activities for the patient from all [place] treatmentfacilities. This section includes future appointments and future orders which are active, pending or scheduled. Future Appointments This section includes appointments that were scheduled to occur 6 months from the date of the Encounter, up to a maximum of 20 appointments. The data comes from all [place] treatment facilities. Appointment Date/Time Appointment Type Appointme nt Facility Name Apr 25, 2023 09:00 AM AMBULATORY - MEDICINE [facility] Jul 03, 2023 11:00 AM AMBULATORY - MEDICINE [facility] Aug 09, 2023 11:00 AM AMBULATORY - MEDICINE [facility] Social History: Smoking Status (Most current) and Tobacco Use (All prior to encounter date) This section includes the most current, and the historical, smoking and tobacco- related health factors from the [place] facility where the Encounter took place. Current Smoking Status This section includes the most current smoking, or tobacco-related health factor, from the [place] facility where the Encounter took place. Date/Time Current Smoking Status Comment Facil ity Jan 18, 2023 10:00 AM [place]-TOBACCO FORMER USER [facility] Tobacco Use History This section includes a history of the smoking, or tobacco-related health factors, that were collected on or before the date of the Encounter. The data comes from the [place] facility where the Encounter took place. Date/Time Smoking Status/Tobacco Use Comment F acility Jan 18, 2023 10:00 AM [place]-TOBACCO QUIT 15 YRS OR MORE [facility] Nov 10, 2021 09:30 AM [place]-TOBACCO FORMER USER [facility] Nov 10, 2021 09:30 AM VA-TOBACCO QUIT 15 YRS OR MORE [facility] Oct 09, 2020 09:00 AM VA-TOBACCO FORMER USER [facility] Oct 09, 2020 09:00 AM VA-TOBACCO QUIT 15 YRS OR MORE [facility] Sep 30, 2019 09:37 AM VA-TOBACCO FORMER USER [facility] Sep 30, 2019 09:37 AM VA-TOBACCO QUIT 15 YRS OR MORE [facility] Aug 29, 2018 11:24 AM VA-TOBACCO FORMER USER [facility] Aug 29, 2018 11:24 AM VA-TOBACCO QUIT 15 YRS OR MORE [facility] Oct 17, 2017 11:00 AM FORMER TOBACCO USER 7Y OR GREATE R [facility] Jun 20, 2016 12:43 PM FORMER TOBACCO USER 7Y OR GREATE R [facility] Apr 10, 2015 10:31 AM FORMER TOBACCO USER 7Y OR GREATE R [facility] May 12, 2014 01:03 PM FORMER TOBACCO USER 7Y OR GREATE R [facility] Advance Directives: All historical and current Section Date Range: From patient's date of to the date document was created. This section includes ALL of a patient's completed or amended [place] Advance and Rescinded Directives. The entries below indicate that a directive exists for the patient, but an actual copy is not included with this document. The data comes from all [place] facilities. Date Advance Directives Provider Source Sep 11, 2014 CLINICAL WARNING COURTNEY TRAVIS [facility] Dec 17, 2003 ADVANCE DIRECTIVE ANA MCNEIL [facility] Pathology Reports: +/- 30 days of the encounter Pathology Reports For cases when an order for pathology services may have been completed prior to the date of the Encounter, the report list includes the Pathology Reports that were completed up to 30 days before dateof the Encounter. For cases when an order for pathology services may have been completed after the date of the Encounter, the report list also includes the Pathology Reports that were completed up to30 days after date of the Encounter. The data comes from all [place] treatment facilities. Date/Time Pathology Report Provider Source Apr 26, 2023 10:42 AM LR SURGICAL PATHOL OGY REPORT: LOCAL TITLE: LR SURGICAL PATHOLOGY REPORT STANDARD TITLE: PATHOLOGY REPORT DATE OF NOTE: APR 26, 2023@10:42:56 ENTRY DATE: APR 26, 2023@10:42:56 AUTHOR: ALISA BROOKS EXP COSIGNER: URGENCY: STATUS: COMPLETED $APHDR Reporting Lab: [facility] [CLIA# [id number]] [place] [address] - - - - - - - - - - - - - - - - - - - - - - - - - - - - - - - - - - - - - - - - MEDICAL RECORD SURGICAL PATHOLOGY - - - - - - - - - - - - - - - - - - - - - - - - - - - - - - - - - - - - - - - - PATHOLOGY REPORT Accession No. [id number] - - - - - - - - - - - - - - - - - - - - - - - - - - - - - - - - - - - - - - - - $TEXT Submitted by: DUNG LEDEZMA Date obtained: Apr 25, 2023 - - - - - - - - - - - - - - - - - - - - - - - - - - - - - - - - - - - - - - - - Specimen (Received Apr 25, 2023 11:50): POLYP COLON SIGMOID - - - - - - - - - - - - - - - - - - - - - - - - - - - - - - - - - - - - - - - - BRIEF CLINICAL HISTORY: Polyp, R/O adenoma Procedure: colonoscopy - - - - - - - - - - - - - - - - - - - - - - - - - - - - - - - - - - - - - - - - PREOPERATIVE DIAGNOSIS: - - - - - - - - - - - - - - - - - - - - - - - - - - - - - - - - - - - - - - - - OPERATIVE FINDINGS: - - - - - - - - - - - - - - - - - - - - - - - - - - - - - - - - - - - - - - - - POSTOPERATIVE DIAGNOSIS: Surgeon/physician: DUNG LEDEZMA MD =-=-=-=-=-=-=-=-=-=-=-=-=- =-=-=-=-=-=-=-=-=-=-=-=-=- =-=-=-=-=-=-=-=-=-=-=-=-=- = - - - - - - - - - - - - - - - - - - - - - - - - - - - - - - - - - - - - - - - - PATHOLOGY REPORT Accession No. [id number] - - - - - - - - - - - - - - - - - - - - - - - - - - - - - - - - - - - - - - - - GROSS DESCRIPTION: The requisition form and specimen(s) identification is confirmed. The specimen is labeled colon - sigmoid and consists of multiple pink-walters tissue fragments measuring 0.3 cm in aggregate. MAGUI Cassidy/cc MICROSCOPIC DESCRIPTION: Microscopic examination performed. RS. DIAGNOSIS: Colon, sigmoid polyp, polypectomy-- - Fragments of tubular adenoma - No evidence of high-grade dysplasia or malignancy /kristy/ ALISA BROOKS STAFF PATHOLOGIST, PATHOLOGY & LABORATORY MED C Signed Apr 26, 2023@10:42 Performing Laboratory: Surgical Pathology Report Performed By: [facility] [CLIA# [id number]] [place] [address] $FTR - - - - - - - - - - - - - - - - - - - - - - - - - - - - - - - - - - - - - - - - (End of report) ALISA BROOKS MD rks Date Apr 26, 2023 - - - - - - - - - - - - - - - - - - - - - - - - - - - - - - - - - - - - - - - - JAYA LIM STANDARD FORM 515 ID:[id number] SEX:M :1950 AGE: 72 LOC:1153 PCP: Francisco Lewis /kristy/ ALISA BROOKS STAFF PATHOLOGIST, PATHOLOGY & LABORATORY MED SVC Signed: 04/26/2023 10:42 ALISA BROOKS [facility] Encounter Notes: All associated encounter notes This section contains the clinical notes associated to the Encounter. Date/Time Encounter Note(s) Provider Source April 04, 2023 11:33 AM NURSING OUTPATIENT NOTE: LOCAL TITLE: [facility]IC NURSING RN NOTE STANDARD TITLE: NURSING OUTPATIENT NOTE DATE OF NOTE: APRIL 04, 2023@11:33 ENTRY DATE: APRIL 04, 2023@11:33:25 AUTHOR: OMAIRA MENENDEZ EXP COSIGNER: URGENCY: STATUS: COMPLETED TYPE OF VISIT: Telephone REASON FOR VISIT: follow up hypotension and bradycardia Outreach to . Canute reports he is feeling very well, he denies any acute complaints. HTN Medication: metoprolol succinate 100 mg daily *Canute's metoprolol dose was recently decreased from 200 mg to 100 mg daily secondary to bradycardia. He states he almost instantly felt better on the lower dose, reporting his energy returned and he hasn't needed anymore afternoon naps. Home BP Readings: Today 105/58, HR 59 *Canute states admits he doesn't check his BP as often as he should, he checked it today, but prior to today, he hadn't checked for a couple of weeks. Recommended monitor his BP and HR twice weekly, one AM and one PM, notifying the clinic if his BP is consistently >130/80. Exercise: states his activity level hasn't changed. [place] [address] and states it keeps me busy. Recommended work on gradually increasing his physical activity to 30 minutes of moderate intensity activity/day, 5 days/week. PLAN: Continue current medication regimen, as prescribed. Monitor BP and HR twice weekly, record readings. Call the clinic if BP is consistently >130/80. Gradually increase physical activity, as tolerated. FYI - to PharmD /es/ OMAIRA MENENDEZ, RN REGISTERED NURSE Signed: 04/04/2023 11:55 OMAIRA MENENDEZ [facility]
--- OUTSIDE RECORDS SUMMARY | 2023-12-24 09:44 | XMS_ITS | Encounter Summary ---
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 [facility] of [facility] ns Affairs Address [address] [place] [address] Support Name Relationship Address Phone ENRIQUE LIM Next of Kin [address] [place] [address] ENRIQUE LIM Emergency Contact [address] [place] [address] GENTRY LIM Next of Kin [address] [place] [phone] GENTRY LIM Emergency Contact [address] [place] [phone] Insurance Providers: All historical and current [...] MEDIC ARE SUPPL EMENT Nov 06, 2018 [id number] [phone] BONY LIM PATIENT [facility] (WNR) MEDICARE ADVANTAGE SENIO R GOLD INDIV IDU Nov 06, 2016 [id number] [phone] BONY LIM PATIENT [facility] MEDICARE SUPPLEMEN JAYNE MEDIC ARE SUPPL EMENT Nov 06, 2018 [id number] [phone] BONY LIM PATIENT MEDICARE (WNR) MEDICARE (M) PART B Apr 06, 2015 PART B [id number] [phone] BONY LIM PATIENT MEDICARE (WNR) MEDICARE (M) PART A Apr 06, 2015 PART A [id number] [phone] BONY LIM PATIENT Selected Encounter This section includes the information on record at [place] for the Encounter. Date/Time Encounter Type Encounter Description Reason Provider Source Jan 18, 2023 10:00 AM OFFICE O/P EST MOD 30-39 MIN PRIMARY CARE/MEDICINE ICD-10-CM E53.8 Deficiency of other specified B group vitamins NALLUSAMY,JM MATHI IHE Encounter Template Text not used by [place] Assessments - Encounter Diagnoses This section includes the primary and secondary diagnoses documented for the Encounter. Date/Time Primary/Secondary Diagnosis Diagnosis Name Provider Source Jan 18, 2023 10:18 AM PRIMARY Deficiency of other specified B group vitamins NALLUSAMY,JM MATHI [facility] Jan 18, 2023 10:18 AM SECONDARY Athscl heart disease of [place] coronary artery w/o ang pctrs NALLUSAMY,JM MATHI [facility] Jan 18, 2023 10:18 AM SECONDARY Benign prostatic hyperplasia without lower urinry tract symp NALLUSAMY,JM MATHI [facility] Jan 18, 2023 10:18 AM SECONDARY Essential (primary) hypertension NALLUSAMY,JM MATHI [facility] Jan 18, 2023 10:18 AM SECONDARY Hyperlipidemia, unspecified NALLUSAMY,JM MATHI [facility] Jan 18, 2023 10:18 AM SECONDARY Other chronic pain NALLUSAMY,JM MATHI [facility] Jan 18, 2023 10:18 AM SECONDARY Other shelter (current) drug therapy NALLUSAMY,JM MATHI [facility] Jan 18, 2023 10:18 AM SECONDARY Paresthesia of skin NALLUSAMY,JM MATHI [facility] Plan of Treatment: Future Appointments (+ [...] 2023 11:30 AM AMB[facility]ATORY - [facility]ICINE [facility] Apr 25, 2023 09:00 AM AMBULATORY - MEDICINE [facility] Jul 03, 2023 11:00 AM AMB[facility]ATORY - MEDIC[facility] Lab Results: +/- 30 days of the encounter This section includes the Chemistry and Hematology Lab Results on record with [place] for the patient. Radiology Reports and Pathology Reports are provided separately, in subsequent sections. Lab Results This section contains the Chemistry/Hematology Results that were resulted 30 days before or 30 daysafter the date of the Encounter. Date/Time Source Result Type Result - Unit Interpretation Reference Range Comment Jan 18, 2023 10:51 AM [facility] HEMOGLOBIN A1C Specimen Type: BLOOD Comment: Values [...] Jan 18, 2023 10:39 AM Reporting Lab: [facility] [id number] Performing Lab: [facility] [id number] HEMOGLOBIN A1C 5.4 4.0-6.0 Jan 18, 2023 10:51 AM [facility] TSH W/REFLEX TO FREE T4 Specimen Type: PLASMA No comment entered. Ordering Provider: JM YU Report Released Date/Time: Jan 18, 2023 10:39 AM Reporting Lab: [facility] [id number] Performing Lab: [facility] [id number] TSH 1.90 0.35-4.94 Jan 18, 2023 10:51 AM [facility] B 12 Specimen Type: SERUM No comment entered. Ordering Provider: JM YU Report Released Date/Time: Jan 18, 2023 10:39 AM Reporting Lab: [facility] [id number] Performing Lab: [facility] [id number] B 12 [phone] Jan 18, 2023 10:51 AM [facility] DOM[facility]NG[facility] LIPID PANEL,NON-FASTING Specimen Type: PLASMA No comment entered. Ordering Provider: JM YU Report Released Date/Time: Jan 18, 2023 10:39 AM Reporting Lab: [facility] [id number] Performing Lab: [facility] [id number] CHOLESTEROL 135 <199 .HDL 55 >40 LDL CALCULATION 70 <99 VLDL CALCULATION 10 <29 NON HDL CHOLESTEROL 80 <129 TRIG(NON FASTING) 52 <149 Jan 18, 2023 10:51 AM [facility] CBC Specimen Type: BLOOD No comment entered. Ordering Provider: JM YU Report Released Date/Time: Jan 18, 2023 10:39 AM Reporting Lab: [facility] [id number] Performing Lab: [facility] [id number] WBC 5.84 4.0-11.0 RBC 3.95 L 4.6-6.2 HGB 11.3 L 13.5-17.9 HCT 36.9 L 41-54 MCV 93.4 80-100 MCH 28.6 27-33 MCHC 30.6 L 32.0-37.5 PLT 250 150-400 MPV 11.6 H 7.4-10.4 RDW 12.3 11.5-14.5 Jan 18, 2023 10:51 AM [facility] CARBONEOC BASIC METABOLIC PANEL+MG Specimen Type: PLASMA No comment entered. Ordering Provider: JM YU Report Released Date/Time: Jan 18, 2023 10:39 AM Reporting Lab: [facility] [id number] Performing Lab: [facility] [id number] CREATININE 0.8 0.7-1.2 UREA NITROGEN 14 8-26 GLUCOSE 95 70-100 SODIUM 138 136-145 POTASSIUM 4.3 3.5-5.1 CHLORIDE 106 98-107 CO2 27 22-29 CALCIUM 8.8 8.4-10.2 MAGNESIUM 2.0 1.6-2.6 ANION GAP 5 5-15 CREAT EGFR(CKD-EPI) >90 >60 Vital Signs: All taken on the encounter date This section contains inpatient and outpatient Vital Signs collected on the date of the Encounter. Date/Time Temperature Pulse Blood Pressure Respiratory Rate SP02 Pain Height Weight Body Mass Index Source Jan 18, 2023 10:05 AM 98.3 F 54 /min 129/65 mm[Hg] 16 /min 98 % 0 69 in 189 lb 28 [facility] Immunizations: All administered on the encounter date This section contains immunizations associated to the Encounter. Immunization Series Date Issued Reaction Comments COVID-19 (PFIZER), MRNA, LNP -S, BIVALENT BOOSTER, PF, 30 MCG/0.3 ML DOSE 1 Jan 18, 2023 Social History: Smoking Status (Most current) and [...] Facil ity Jan 18, 2023 10:00 AM VA-TOBACCO FORMER USER [facility] Tobacco Use History This section includes a history of the smoking, or tobacco-related health factors, that were collected on or before the date of the Encounter. The data comes from the [place] facility where the Encounter took place. Date/Time Smoking Status/Tobacco Use Comment F acility Jan 18, 2023 10:00 AM VA-TOBACCO QUIT 15 YRS OR MORE [facility] Nov 10, 2021 09:30 AM VA-TOBACCO FORMER USER [facility] Nov 10, 2021 09:30 AM VA-TOBACCO QUIT 15 YRS OR MORE [facility] Oct 09, 2020 09:00 AM VA-TOBACCO FORMER USER [facility] Oct 09, 2020 09:00 AM VA-TOBACCO QUIT 15 YRS OR MORE [facility] Sep 30, 2019 09:37 AM VA-TOBACCO FORMER USER [facility] Sep 30, 2019 09:37 AM VA-TOBACCO QUIT 15 YRS OR MORE [facility] Aug 29, 2018 11:24 AM VA-TOBACCO FORMER USER [facility] Aug 29, 2018 11:24 AM VA-TOBACCO QUIT 15 YRS OR MORE [facility] Oct 17, 2017 11:00 AM FORMER TOBACCO USER 7Y OR GREATE R [facility] Jun 20, 2016 12:43 PM FORMER TOBACCO USER 7Y OR GREATE R [facility] Apr 10, 2015 10:31 AM FORMER TOBACCO USER 7Y OR GREATE R [facility] May 12, 2014 01:03 PM FORMER TOBACCO USER 7Y OR GREATE R [facility] Advance Directives: All historical and current [...] Sep 11, 2014 CLINICAL WARNING COURTNEY TRAVIS [facility] Dec 17, 2003 ADVANCE DIRECTIVE ANA MCENIL [facility] Encounter Notes: All associated encounter notes This section contains the clinical notes associated to the Encounter. Date/Time Encounter Note(s) Provider Source Jan 18, 2023 09:58 PM LETTERS: LOCAL TITLE: FOLLOW UP RESULTS LETTER STANDARD TITLE: LETTERS DATE OF NOTE: JAN 18, 2023@21:58 ENTRY DATE: JAN 18, 2023@21:58:44 AUTHOR: CUCO YU EXP COSIGNER: URGENCY: STATUS: COMPLETED [facility] [address] [place] [address] Jan GABRIELE LIM [address] [place], [place] [id number] Dear [place]: You should be receiving another letter with the results of the tests you had done through the [facility]. I have reviewed the results , your anemia or low blood count is still not corrected which may be because of the low B12 please take your B12 prescription as prescribed. This will help your neuropathy and nerve pain also. We will recheck this next year, call the clinic if the symptoms get worse. Otherwise all other lab results look normal. If you have any further questions or problems, please contact the call center at [phone] to speak with a nurse or leave me a message. Sincerely, Dr.Vasu Yu, STEVE, RAJEEV YU DNP,CUCO Morris [facility] Jan 18, 2023 10:08 AM PRIMARY CARE [facility] LOPEZ NOTE: LOCAL TITLE: CB NURSING PROGRESS NOTE STANDARD TITLE: PRIMARY CARE NURSING NOTE DATE OF NOTE: JAN 18, 2023@10:08 ENTRY DATE: JAN 18, 2023@10:09:02 AUTHOR: TIM CALDERON COSIGNER: URGENCY: STATUS: COMPLETED TYPE OF VISIT: Appointment Check In Type of appointment: In-person appointment REASON FOR VISIT: Annual ALLERGIES: PENICILLIN (Apr 28, 2000) VITAL SIGNS: Blood Pressure: 129/65 (01/18/2023 10:05) Pulse: 54 (01/18/2023 10:05) Respiration: 16 (01/18/2023 10:05) Temperature: 98.3 F [36.8 C] (01/18/2023 10:05) Weight: 189 lb [85.73 kg] (01/18/2023 10:05) Height: 69 in [175.3 cm] (01/18/2023 10:05) BMI: 28.0 O2 Sat: 98% (01/18/2023 10:05) Pain: 0 (01/18/2023 10:05) PAIN SCREEN: Patient is not having significant pain that they wish to discuss with their provider today. MEDICATION Recently Outpatient Medications (including Supplies): ATORVASTATIN CALCIUM 80MG TAB TAKE ONE-HALF TABLET BY MOUTH EVERY DAY FOR CHOLESTEROL CYANOCOBALAMIN 1000MCG TAB TAKE ONE TABLET BY MOUTH EVERY DAY FOR LOW B12 METOPROLOL SUCCINATE 200MG SA TAB TAKE ONE TABLET BY MOUTH EVERY DAY FOR HEART HEALTH TERAZOSIN HCL 2MG CAP TAKE THREE CAPSULES BY MOUTH AT BEDTIME redActive Outpatient Medications (including Supplies): Non-VA Medications Status 1) Non-VA BUPRENORPHINE 75MCG BUCCAL FILM 75MCG CHEEK ACTIVE AND GUM UNTIL DISSOLVED EVERY DAY 2) Non-VA HYDROMORPHONE 2MG TAB 2MG MOUTH EVERY 4 HOURS ACTIVE NEEDED 3) Non-VA IBUPROFEN 600MG TAB 600MG MOUTH NEEDED ACTIVE 4) Non-VA OXYCODONE 10MG SA TAB 10MG MOUTH EVERY DAY ACTIVE Alcohol Use Screen (AUDIT-C): Alcohol Screen: SCREEN FOR ALCOHOL (AUDIT-C) An alcohol screening test (AUDIT-C) was negative (score=1). 1. How often did you have a drink containing alcohol in the past year? Monthly or less 2. How many drinks containing alcohol did you have on a typical day when you were drinking in the past year? One or two drinks 3. How often did you have six or more drinks on one occasion in the past year? Never Suicide Screen: C-SSRS Screening [place] Suicide Severity Rating Scale (C-SSRS) screener 1. Over the past month, have you wished you were or wished you could go to sleep and not wake up? No 2. Over the past month, have you had any actual thoughts of killing yourself? No 3. Over the past month, have you been thinking about how you might do this? Response not required due to responses to other questions. 4. Over the past month, have you had these thoughts and had some intention of acting on them? Response not required due to responses to other questions. 5. Over the past month, have you started to work out or worked out the details of how to kill yourself? Response not required due to responses to other questions. 6. If yes, at any time in the past month did you intend to carry out this plan? Response not required due to responses to other questions. 7. In your lifetime, have you ever done anything, started to do anything, or prepared to do anything to end your life (for example, collected pills, obtained a gun, gave away valuables, went to the roof but didn't jump)? No 8. If YES, was this within the past 3 months? Response not required due to responses to other questions. Depression Screening: Perform PHQ-2 A PHQ-2 screen was performed. The score was 0 which is a negative screen for depression. Over the past two weeks, how often have you been bothered by the following problems? 1. Little interest or pleasure in doing things Not at all 2. Feeling down, depressed, or hopeless Not at all PTSD Screening: PC-PTSD-5 A PTSD screening test (PC-PTSD-5) was negative (score=0). Have you ever had any experience that was so frightening, horrible or upsetting that, IN THE PAST MONTH, you: Have you ever experienced this kind of event? NO 1. Had nightmares about the event(s) or thought about the event(s) when you did not want to? Response not required due to responses to other questions. 2. Tried hard not to think about the event(s) or went out of your way to avoid situations that reminded you of the event(s)? Response not required due to responses to other questions. 3. Been constantly on guard, watchful, or easily startled? Response not required due to responses to other questions. 4. [place] numb or detached from people, activities, or your surroundings? Response not required due to responses to other questions. 5. [place] guilty or unable to stop blaming yourself or others for the event(s) or any problems the event(s) may have caused? Response not required due to responses to other questions. COVID-19 Immunization Booster: Pfizer Bivalent (preferred) The patient was given the EUA Fact Sheet for this vaccine which lists the benefits and side effects of the vaccine and which reviews the risks of the vaccine. The fact sheet was reviewed with the patient andthey were given an opportunity to ask questions. The patient denied any prior severe reaction to this vaccine or its components or a severe allergic reaction such as anaphylaxis to any vaccine or to any injectable therapy. The patient gave verbal consent to receive the vaccine. Administered: COVID-19 ([employer]), MRNA, LNP-S, BIVALENT BOOSTER, PF, 30 MCG/0.3 ML DOSE Date Administered: Jan 18, 2023 10:00 Series: Series 1 Nursing Program Manager: [employer] Lot: [id number] Exp Date: Dec 06, 2023 [facility]: [phone] Admin Route/Site: INTRAMUSCULAR/RIGHT DELTOID Dosage: 0.3mL Vaccine Information Statement(s): COVID-19 StudyRoomNTStadionaut (12+ YRS) EUA FACT SHEET Oct 13, 2022 (IRISH) Order By: Policy Administered By: Tim Calderon Vaccine administered without complications. The patient was advised to remain in the facility for 15 minutes post vaccination.The patient was given a completed COVID-19 vaccination record card,a copy of the VA Side Effects and Adverse Events Reporting Fact Sheet and instructed on how to report any adverse reactions. Homelessness/Food Insecurity Screen: In the past 2 months, have you been living in stable housing that you own, rent, or stay in as part of a household? Yes - Living in stable housing. Are you worried or concerned that in the next 2 months you may NOT have stable housing that you own, rent, or stay in as part of a household? No - Not worried about housing near future The reports the following: Within the past 12 months, you worried whether your food would run out before you got money to buy more. Never true Within the past 12 months, the food you bought just didn't last and you didn't have money to get more. Never true Tobacco Use Screening: The patient is a former tobacco user. The patient quit fifteen or more years ago. Influenza Immunization: The patient has received the seasonal influenza vaccine for the current season at another location. 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 The [place]/caregiver was informed that we will continue to ask this screening question every 5 years. They can contact their provider/healthcare team if they have concerns about exposures and would like to be screened sooner. Printed information was offered and provided if desired. ADV DIR Notification and Screening: ADVANCE DIRECTIVE NOTIFICATION: Patient was given written notification of the following rights: 1. Accept or refuse any medical treatment. 2. Complete a durable power of tax attorney for health care. 3. Complete a living will. ADVANCE DIRECTIVE SCREENING: Does patient have an Advance Directive? The patient does not have an Advance Directive. The patient wishes to create an Advance Directive for health care. The patient has no questions about completing the Advance Directive forms. Nursing Annual Screening: Fall History Screen During the past 12 months, have you had any falls? Patient does not report any falls in the past 12 months. MEDICATIONS: Patient is on one of the following medication classes: Antihypertensives, Antidepressants, Antipsychotics, Diuretics, or Controlled substance medication used for pain. FALL RISK ADVICE: Fall Risk Advice provided. Handout entitled Fall Prevention At Home reviewed and given to patient and/or significant other. Script Talk Screen Are you able to read your prescription bottles with your glasses, magnifiers or other aids? Yes or patient not taking any prescriptions. Skin Screen Patient reports any current pressure ulcers, a history of pressure ulcers, or a wound from a medical doctor md or Patient is bed-confined or a wheelchair-user or Patient requires assistance to transfer/change position No, Skin Screen is Negative Home Abuse/Violence Screen Is your home free of abuse and violence? Yes MOVE! Program Screen Body Mass Index (BMI)= 28.0 [place]: Collection DT Specimen Test Name Result Units Ref Range 11/10/2021 09:58 BLOOD HEMOGLOBIN A1C 5.5 % 4.0 - 6.0 [place] Hgb A1C: No data available [place] Hgb A1C: No data available Point of Care Hgb A1C: POC HGB A1C____ Outpatient Nutrition Screen Body Mass Index (BMI)= 28.0 [place]: Collection DT Specimen Test Name Result Units Ref Range 11/10/2021 09:58 BLOOD HEMOGLOBIN A1C 5.5 % 4.0 - 6.0 [place] Hgb A1C: No data available [place] Hgb A1C: No data available Point of Care Hgb A1C: POC HGB A1C____ Is patient's BMI less than 18.5? No Does patient have swallowing, coughing, or chewing problems affecting oral intake? No Has patient experienced unplanned weight loss or gain greater than 10 pounds over the last 2 months? No Is patient's Hgb A1C (Glycosylated Hemoglobin) greater than 9.5? Information not available Is patient receiving Total Parenteral Nutrition (TPN) or Tube Feedings? No Patient Health Education Screen BARRIERS/SPECIAL NEEDS: No barriers identified PREFERRED STYLE OF LEARNING: No preference stated Client Assistive Service (LUISA[place]) Screen Does the patient require assistance with outpatient visit? Florencia /kristy/ TIM CALDERON LPN LICENSED PRACTICAL NURSE Signed: 01/18/2023 10:34 TIM CALDERON [facility] Jan 18, 2023 09:02 AM H & P NOTE: LOCAL TITLE: CB ANNUAL VISIT STANDARD TITLE: H & P NOTE DATE OF NOTE: JAN 18, 2023@09:02 ENTRY DATE: JAN 18, 2023@09:02:40 AUTHOR: CUCO YU EXP COSIGNER: URGENCY: STATUS: COMPLETED [facility] ANNUAL VISIT Has ADDENDA Today's Nurse check-in note reviewed. Seen in clinic today respecting current PPE guidelines. Preferred name- Gabriele price - see pain clinic [facility] - Mechelle Cheng CNP The patient is a 72 year old MALE here for Wellness and preventive medicine visit. The patient has no concerns today. History of Present Illness: Chronic Problems #CAD #HTN-BP at goal, Taking metoprolol, no missed doses. No chest pain, SOB, edema, paroxysmal nocturnal dyspnea, headaches, vision changes. #HLD-On statin, no missed dose . #BPH-positive for nocturia. Stable with terazosin #chronic Pain - Pain in right leg and low back paulina , eduard [facility] , on [facility]. #vitamin B12 deficiency - is not compliant , has complaints of numbness to right leg ADLs: independent IADLs: independent Memory concerns: none No fall-lives in a single-family home Review of Systems Denies chest pain, shortness of breath, recent significant weight changes, rash, bowel or bladder changes, new joint pain or swelling, headaches, lightheadedness, vision changes, new numbness or tingling or weakness. Remainder of the ROS is negative, except as above. Past Medical History Active problems - Computerized Problem List is the source for the followin. Pain, Low Back - [id number], Surgery at [place] 1992 2. Coronary artery disease (SNOMED CT 40388221) - AMI, TUBE BUFFER, stent LAD 1994 - S/P CABG X 3 1996 - presented with chest pain; collapse while hiking 1994 3. Pain, Shoulder joint - Lt shoulder, f/b ortho.. 4. Esophageal reflux (SNOMED CT 107363196) 5. Hyperlipidemia (SNOMED CT 82386712) 6. Adenomatous polyp of colon - tubular adenoma 11/10/11 [place] colonoscopy - rpt 7 yrs 7. Degen LS Disc - lumbar fusion 2007 at [facility] bilat calf pain 8. Idiopathic chronic neuropathy (SNOMED CT 457139740) 9. Anemia (SNOMED CT 341253910) 10. Chronic gastritis - EGD/biopsies at [facility] 05/01/15 - continue PPI - H pylori neg 11. Thyroid nodule - bilat nodule bx 04/21/15 - benign 12. Hypertensive disorder 13. Pain of left shoulder joint 14. Chronic pain - Generalized to left arm, left neck, right leg, and low back. Sees pain clinic outside [place] 15. History of myocardial infarction - 1994 while hiking fatoumata Gutiérrez 16. 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 Allergies: PENICILLIN ([birth year], 1999) Medications: Active Outpatient Medications (including Supplies): Pending Outpatient Medications Status 1) ATORVASTATIN CALCIUM 80MG TAB TAKE ONE-HALF TABLET BY PENDING MOUTH EVERY DAY FOR CHOLESTEROL 2) CYANOCOBALAMIN 1000MCG TAB TAKE ONE TABLET BY MOUTH PENDING EVERY DAY FOR LOW B12 3) TERAZOSIN HCL 2MG CAP TAKE THREE CAPSULES BY MOUTH AT PENDING BEDTIME Active Non-VA Medications Status 1) Non-VA BUPRENORPHINE 75MCG BUCCAL FILM 75MCG CHEEK ACTIVE AND GUM UNTIL DISSOLVED EVERY DAY 2) Non-VA HYDROMORPHONE 2MG TAB 2MG MOUTH EVERY 4 HOURS ACTIVE NEEDED 3) Non-VA IBUPROFEN 600MG TAB 600MG MOUTH NEEDED ACTIVE 4) Non-VA OXYCODONE 10MG SA TAB 10MG MOUTH EVERY DAY ACTIVE 7 Total Medications MEDICATION RECONCILIATION Outpatient At this visit I have reviewed the medication list, and discussed relevant medications with the patient/surrogate. An updated patient medication list was given to the participant(s). No Change Physical Exam: Vitals: BP: 129/65 (01/18/2023 10:05) P: 54 (01/18/2023 10:05) R: 16 (01/18/2023 10:05) T: 98.3 F [36.8 C] (01/18/2023 10:05) WT: 189 lb [85.73 kg] (01/18/2023 10:05) BMI: 28.0 Pain: 0 (01/18/2023 10:05) O2 Sat: 98% (01/18/2023 10:05) General: Alert, well dressed and groomed, no apparent distress HEENT: Normocephalic, atraumatic, ear canals clear, TMs normal, OP clear, neck supple without mass, adenopathy or thyromegaly Lungs: Clear; no wheezes, rhonchi or rales CV: RRR without murmur, rub or gallop GI: Abdomen non distended, soft, non-tender, normal bowel sounds, Skin: UBSE - back with scattered SK and Lentigos no other worrisome lesions . Skin warm and moist, no rash or erythema MS: No joint swelling, ambulates without difficulty Psych: Good eye contact, speech normal rate and rhythm, affect full range Assessment/Plan: Wellness/screening visit completed. #CAD #HTN-BP at goal, Heart rate on the lower side , no indication to continue metoprolol. Gave a BP log - will refer to Pharm d for deprescribing . #HLD-Renewed atorvastatin #BPH-Renewed terazosin #chronic Pain - Continue with Non [facility] pain clinic #vitamin B12 deficiency - will get updated labs - renewed Vit b12 #Annual Vested exam - meds: reviewed, updated and renewed - the ACTIVE PROBLEM LIST problem list above is considered to be the Past Medical History for the purposes of this note; it was reviewed at the time of this visit and no changes unless otherwise noted above #Health Maintenance/Wellness -Exercise: Walks and keeps active -Diet: well balanced -Dental: no concerns, q 6 months with non-VA provider -Hearing: gave number to audiology , does not have hearing aids -Eye Exam: no concerns - Cancer screening: ---> Prostate: no clinical indication ---> Colon: Colonoscopy ordered --->AAA Screening: done non [facility] I will follow up with the on labs. If all is well we can see back in a year. understands and agrees to the plan. Follow up as discussed. Sooner if questions or concerns. Disclaimer: This note consists of symbols derived from keyboarding, dictation and/or voice recognition software. As a result, there may be errors in the script that have gone undetected. Please consider this when interpreting information found in this chart. Follow Up Colonoscopy: Colonoscopy is due based on information available to this reminder. Colonoscopy consult has been ordered. See orders tab for details. /RAJEEV Mejia DNP Signed: 01/18/2023 11:06 Receipt Acknowledged By: 01/18/2023 11:59 /gilson BOYER [employer] B[employer] SHOP MANAGER 01/18/2023 ADDENDUM STATUS: COMPLETED Will review home BP/HR readings once returned to the clinic and follow-up with the re: metoprolol succinate deprescribing per PCP. /gilson BOYER CLINICAL BODY SHOP MANAGER Signed: 01/18/2023 11:59 [facility]
--- OUTSIDE RECORDS SUMMARY | 2023-12-24 09:45 | XMS_ITS | Encounter Summary ---
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 Department of [employer] Affairs Address [address] [place] [address] Support Name Relationship Address Phone ENRIQUE LIM Next of Kin [address] [place] [address] ENRIQUE LIM Emergency Contact [address] [place], [place] [id number] NEHA LIM Next of Kin [address] [place] [phone] NEHA LIM Emergency Contact [address] [place] [address] Insurance Providers: All historical and [...] MEDIC ARE SUPPL EMENT Nov 06, 2018 [id number] BONY LIM PATIENT [facility]) MEDICARE ADVANTAGE SENIO R GOLD INDIV IDU Nov 06, 2016 [id number] [phone] BONY LIM PATIENT [facility] MEDICARE SUPPLEMEN JAYNE MEDIC ARE SUPPL EMENT Nov 06, 2018 [id number] [phone] BONY LIM PATIENT MEDICARE ([facility]) MEDICARE () PART A Apr 06, 2015 PART A [id number] BONY LIM PATIENT MEDICARE ([facility]) MEDICARE (M) PART B Apr 06, 2015 PART B [id number] [phone] BONY LIM PATIENT Selected Encounter This section includes the information on record at [place] for the Encounter. Date/Time Encounter Type Encounter Description Reason Provider Source Apr 25, 2023 09:00 AM INJ [place] HYDROCHLORIDE GI ENDOSCOPY ICD-10-CM D12.5 Benign neoplasm of sigmoid colon KENNYDUNG E Encounter Template Text not used by [place] Assessments - Encounter Diagnoses This section includes the primary and secondary diagnoses documented for the Encounter. Date/Time Primary/Secondary Diagnosis Diagnosis Name Provider Source Apr 25, 2023 12:03 PM PRIMARY Benign neoplasm of sigmoid colon DUNG KENNY [facility] Apr 25, 2023 12:03 PM SECONDARY Personal history of colonic polyps DUNG KENNY [facility] Plan of Treatment: Future Appointments (+ 6 months) and Future Tests (+/- 45 days) The Plan of Treatment section includes future care activities for the patient from all [place] [facility]. This section includes future appointments and future orders which are active, pending or scheduled. Future Appointments This section includes appointments that were scheduled to occur 6 months from the date of the Encounter, up to a maximum of 20 appointments. The data comes from all [place] treatment facilities. Appointment Date/Time Appointment Type Appointme nt Facility Name Jul 03, 2023 11:00 AM AMBULATORY - MEDICINE [facility] Aug 09, 2023 11:00 AM AMBULATORY - MEDICINE [facility] Social History: Smoking Status (Most current) and Tobacco Use (All prior to encounter date) This section includes the most current, and the historical, smoking and tobacco- related health factors from the [place] facility where the Encounter took place. Current Smoking Status This section includes the most current smoking, or tobacco-related health factor, from the [place] facility where the Encounter took place. Date/Time Current Smoking Status Comment Facil ity Apr 06, 2009 11:02 AM FORMER TOBACCO USER 7Y OR GREATE R [facility] Tobacco Use History This section includes a history of the smoking, or tobacco-related health factors, that were collected on or before the date of the Encounter. The data comes from the [place] facility where the Encounter took place. Date/Time [...] ALL of a patient's completed or amended [place] Advance and Rescinded Directives. The entries below indicate that a directive exists for the patient, but an actual copy is not included with this document. The data comes from all [place] facilities. Date Advance Directives Provider Source Sep 11, 2014 CLINICAL WARNING COURTNEY TRAVIS [facility] Dec 17, 2003 ADVANCE DIRECTIVE ANA MCNEIL [facility] Pathology Reports: +/- 30 days of [...] the Encounter. The data comes from all [place] treatment facilities. Date/Time Pathology Report Provider Source Apr 26, 2023 10:42 AM LR SURGICAL PATHOL OGY REPORT: LOCAL TITLE: LR SURGICAL PATHOLOGY REPORT STANDARD TITLE: PATHOLOGY REPORT DATE OF NOTE: APR 26, 2023@10:42:56 ENTRY DATE: APR 26, 2023@10:42:56 AUTHOR: ALISA BROOKS EXP COSIGNER: URGENCY: STATUS: COMPLETED $APHDR Reporting Lab: [facility] [CLIA# [id number]] [email or web address] [address] - - - - - - - [...] - - - $TEXT Submitted by: DUNG KENNY Date obtained: Apr 25, 2023 - - [...] - - - POSTOPERATIVE DIAGNOSIS: Surgeon/physician: DUNG KENNY MD =-=-=-=-=-=-=-=-=-=-=-=-=- =-=-=-=-=-=-=-=-=-=-=-=-=- =-=-=-=-=-=-=-=-=-=-=-=-=- = - - [...] MAGUI Cassidy/cc MICROSCOPIC DESCRIPTION: Microscopic examination performed. RSCleo DIAGNOSIS: Colon, sigmoid polyp, polypectomy-- - Fragments of tubular adenoma - No evidence of high-grade dysplasia or malignancy /kristy/ ALISA BROOKS STAFF PATHOLOGIST, PATHOLOGY & LABORATORY [facility] Signed Apr 26, 2023@10:42 Performing Laboratory: Surgical Pathology Report Performed By: [facility] [CLIA# [id number]] [place] [address] $FTR - - - - - - [...] - - JAYA LIM STANDARD FORM 515 ID:[id number] SEX:M :1950 AGE: 72 LOC:1153 PCP: Francisco Lewis /kristy/ ALISA BROOKS STAFF PATHOLOGIST, PATHOLOGY & LABORATORY [facility] Signed: 04/26/2023 10:42 ALISA BROOKS [facility] Encounter Notes: All associated encounter notes This section contains the clinical notes associated to the Encounter. Date/Time Encounter Note(s) Provider Source Apr 27, 2023 10:58 AM LETTERS: LOCAL TITLE: FOLLOW UP RESULTS LETTER STANDARD TITLE: LETTERS DATE OF NOTE: APR 27, 2023@10:58 ENTRY DATE: APR 27, 2023@10:58:36 AUTHOR: DUNG KENNY COSIGNER: URGENCY: STATUS: COMPLETED [facility] [place] [address] Apr JAYA LIM [address] [place] [id number] Dear [place]worth: I am writing to inform you of the test results performed Apr for the following: Colonoscopy Results of microscopic examination: Polyp - Adenoma Colon, sigmoid polyp, polypectomy-- - Fragments of tubular adenoma - No evidence of high-grade dysplasia or malignancy Explanation of pathology results: An adenoma is a type of polyp that if left in the colon, could over a period of years, grow larger and/or even turn into a cancer, although most do not. After reviewing your results I do not recommend any future colon cancer screening because of your age and/or other medical conditions. If you want to see the full pathology report, you may do this by logging on the [employer] website at [email or web address]. Please note: Results can take up to 14 days to be viewable for pathology reports. If you have not already done so, I recommend you visit this web site to set up your account. You will then be able to review this result and all future results. If you have any questions, the GI department can be called between the hours of 7:30 a.m. and 3:30 p.m., Monday - Monday. The GI department can be reached at or toll free at [phone]. Sincerely, Dung Kenny MD Gastroenterology Boot And Saddle Repair Person DUNG KENNY [facility] Apr 25, 2023 12:03 PM GASTROENTEROLOGY C ONSULT: LOCAL TITLE: GASTROENTEROLOGY CONSULT STANDARD TITLE: GASTROENTEROLOGY CONSULT DATE OF NOTE: APR 25, 2023@12:03 ENTRY DATE: APR 25, 2023@12:03:39 AUTHOR: SHYANNE CHUNG EXP COSIGNER: URGENCY: STATUS: COMPLETED This patient's Colonoscopy was completed on Apr. Please see the G.I. Clinical Procedure (CP) consult or [facility] with this date for further information. /kristy/ SHYANNE CHUNG RN Signed: 04/25/2023 12:03 SHYANNE CHUNG [facility] Apr 25, 2023 09:50 AM GASTROENTEROLOGY P REPROCEDURE NOTE: LOCAL TITLE: GI PRE-PROCEDURE NOTE STANDARD TITLE: GASTROENTEROLOGY PREPROCEDURE NOTE DATE OF NOTE: APR 25, 2023@09:50 ENTRY DATE: APR 25, 2023@09:50:23 AUTHOR: DUNG KENNY EXP COSIGNER: URGENCY: STATUS: COMPLETED Gastroenterology Pre-procedure Assessment: Procedure planned: Colonoscopy Pre-Op Diagnosis or Indication for Procedure: Surveillance for polyps or cancer Problem list Active problems - Computerized Problem List is the source for the followin. Pain, Low Back - [id number], Surgery at [place] 1992 2. 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 Pain, Shoulder joint - Lt shoulder, f/b ortho.. 4. Esophageal reflux (SNOMED CT 440321792) 5. Hyperlipidemia (SNOMED CT 90645075) 6. Adenomatous polyp of colon - tubular adenoma 11/10/11 [place] colonoscopy - rpt 7 yrs 7. Degen LS Disc - lumbar fusion 2007 at [facility] bilat calf pain 8. Idiopathic chronic neuropathy (SNOMED CT 542583939) 9. Anemia (SNOMED CT 158931447) 10. Chronic gastritis - EGD/biopsies at [facility] 05/01/15 - continue PPI - H pylori neg 11. Thyroid nodule - bilat nodule bx 04/21/15 - benign 12. Hypertensive disorder 13. Pain of left shoulder joint 14. Chronic pain - Generalized to left arm, left neck, right leg, and low back. Sees pain clinic outside [place] 15. History of myocardial infarction - 1994 while hiking fatoumata Gutiérrez 16. 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 Outpatient Medications (including Supplies): Active Outpatient Medications Status 1) ATORVASTATIN CALCIUM 80MG TAB TAKE ONE-HALF TABLET BY ACTIVE MOUTH EVERY DAY FOR CHOLESTEROL 2) CYANOCOBALAMIN 1000MCG TAB TAKE ONE TABLET BY MOUTH ACTIVE EVERY DAY FOR LOW B12 3) METOPROLOL SUCCINATE 100MG SA TAB TAKE ONE TABLET BY ACTIVE MOUTH EVERY DAY FOR HEART HEALTH 4) TERAZOSIN HCL 2MG CAP TAKE THREE CAPSULES BY MOUTH AT ACTIVE BEDTIME Active Non-VA Medications Status 1) Non-VA BUPRENORPHINE 75MCG BUCCAL FILM 75MCG CHEEK ACTIVE AND GUM UNTIL DISSOLVED EVERY DAY 2) Non-VA HYDROMORPHONE 2MG TAB 2MG MOUTH EVERY 4 HOURS ACTIVE NEEDED 3) Non-VA IBUPROFEN 600MG TAB 600MG MOUTH NEEDED ACTIVE 4) Non-VA OXYCODONE 10MG SA TAB 10MG MOUTH EVERY DAY ACTIVE 8 Total Medications Allergies: PENICILLIN (Apr 28, 1999) Mallampati Score: 2: (Visibility of hard and soft palate, upper portion of tonsils and uvula) Airway: Within normal limits Exam: Heart and lungs within normal limits Lab PT____ INR____ HCT: 38.0 (10/09/20) 36.9 (01/18/23) HGB: 11.9 (10/09/20) 11.3 (01/18/23) MCH: 31.0 (10/09/20) 28.6 (01/18/23) MCHC: 31.3 (10/09/20) 30.6 (01/18/23) MCV: 99.0 (10/09/20) 93.4 (01/18/23) MPV: 10.9 (10/09/20) 11.6 (01/18/23) PLT: 218 (10/09/20) 250 (01/18/23) RBC: 3.84 (10/09/20) 3.95 (01/18/23) RDW: 12.0 (10/09/20) 12.3 (01/18/23) WBC: 6.38 (10/09/20) 5.84 (01/18/23) Other Lab tests: [place] Society of Anesthesiologists (ASA) Classification: II SPN - Selected Prog Notes No data available for: LIFE-SUSTAINING TREATMENT Sedation Plan: Moderate sedation I have reviewed the patient's pre-procedure baseline level of consciousness, current vital signs, time and nature of last oral intake, and any previous adverse experiences with sedation as documented in the Provation [facility] note. The procedure report can be viewed in the Reports tab-->procedures or in [facility]. I will be conducting or supervising the procedure, although a different provider obtained consent. Patient informed and agrees to proceed. /kristy/ Dung Kenny MD Gastroenterology Boot And Saddle Repair Person Signed: 04/25/2023 09:51 DUNG KENNY [facility]
--- OUTSIDE RECORDS SUMMARY | 2023-12-24 09:45 | XMS_ITS | Encounter Summary ---
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 [facility] Address [address] [place] [address] Support Name Relationship Address Phone ENRIQUE LIM Next of Kin [address] [place] [address] ENRIQUE LIM Emergency Contact [address] [place] [address] GENTRY LIM Next of Kin [address] [place] [phone] GENTRY LIM Emergency Contact [address] [place] [address] Insurance Providers: All historical and [...] Doshi's Name Patient's Relationship to Policy Doshi [facility] MEDICARE SUPPLEMEN JAYNE MEDIC ARE SUPPL EMENT Nov 06, 2018 [id number] BONY LIM PATIENT [facility] ([facility]) MEDICARE ADVANTAGE SENIO R GOLD INDIV IDU Nov 06, 2016 [id number] [phone] BONY LIM PATIENT [facility] MEDICARE SUPPLEMEN JAYNE MEDIC ARE SUPPL EMENT Nov 06, 2018 [id number] [phone] BONY LIM PATIENT MEDICARE ([facility]) MEDICARE (M) PART A Apr 06, 2015 PART A [id number] [phone] BONY LIM PATIENT MEDICARE (WNR) MEDICARE (M) PART B Apr 06, 2015 PART B [id number] BONY LIM PATIENT Selected Encounter This section includes the information on record at [place] for the Encounter. Date/Time Encounter Type Encounter Description Reason Pro vider Source Apr 25, 2023 09:50 AM Outpatient Encounter EVENT (HISTORICAL) IHE Encounter Template Text not used by [place] Plan of Treatment: Future Appointments (+ 6 months) and Future Tests (+/- 45 days) The Plan of Treatment section includes future care activities for the patient from all [place] treatmentfacilities. This section includes future appointments and future orders which are active, pending or scheduled. Future Appointments This section includes appointments that were scheduled to occur 6 months from the date of the Encounter, up to a maximum of 20 appointments. The data comes from all [place] treatment facilities. Appointment Date/Time Appointment Type Appointme nt Facility Name Jul 03, 2023 11:00 AM AMBULATORY - MEDICINE [facility] Aug 09, 2023 11:00 AM AMBULATORY - [facility]ICINE [facility] Social History: Smoking Status (Most current) and Tobacco Use (All prior to encounter date) This section includes the most current, and the historical, smoking and tobacco- related health factors from the [place] facility where the Encounter took place. Current Smoking Status This section includes the most current smoking, or tobacco-related health factor, from the [place] facility where the Encounter took place. Date/Time Current Smoking Status Comment Facil ity Apr 06, 2009 11:02 AM FORMER TOBACCO USER 7Y OR GREATE R [facility] Tobacco Use History This section includes a history of the smoking, or tobacco-related health factors, that were collected on or before the date of the Encounter. The data comes from the [place] facility where the Encounter took place. Date/Time Smoking Status/Tobacco Use Comment F acility Apr 09, 2008 09:43 AM FORMER TOBACCO USE >1Y <7Y [facility] Apr 17, 2007 08:30 AM FORMER TOBACCO USE >1Y <7Y [facility] Advance Directives: All historical and current Section Date Range: From patient's date of to the date document was created. This section includes ALL of a patient's completed or amended [place] Advance and Rescinded Directives. The entries below indicate that a directive exists for the patient, but an actual copy is not included with this document. The data comes from all [place] facilities. Date Advance Directives Provider Source Sep 11, 2014 CLINICAL WARNING TRAVISCOURTNEY HERNANDEZ [facility] Dec 17, [address] ADVANCE [address] ANA MCNEIL [facility] Pathology Reports: +/- 30 days of the [...] the Encounter. The data comes from all [place] treatment facilities. Date/Time Pathology Report Provider Source Apr 26, 2023 10:42 AM LR SURGICAL PATHOL OGY REPORT: LOCAL TITLE: LR SURGICAL PATHOLOGY REPORT STANDARD TITLE: PATHOLOGY REPORT DATE OF NOTE: APR 26, 2023@10:42:56 ENTRY DATE: APR 26, 2023@10:42:56 AUTHOR: ALISA BROOKS EXP COSIGNER: URGENCY: STATUS: COMPLETED $APHDR Reporting Lab: [facility] [CLIA# [id number]] [place] [address] - - - - - - - [...] BROOKS STAFF PATHOLOGIST, PATHOLOGY & LABORATORY [facility] Signed Apr 26, 2023@10:42 Performing Laboratory: Surgical Pathology Report Performed By: [facility] [CLIA# [id number]] [place] [address] $FTR - - - - - - - - - - - - - - - - - - - - - - - - - - - - - - - - - - - - - - - - (End of report) LAISA BROOKS MD s Date Apr 26, 2023 - - - - - - - - - - - - - - - - - - - - - - - - - - - - - - - - - - - - - - - - JAYA LIM STANDARD FORM 515 ID:[id number] SEX:M :1950 AGE: 72 LOC:1153 PCP: Francisco Lewis /kristy/ ALISA BROOKS STAFF PATHOLOGIST, PATHOLOGY & LABORATORY [facility] Signed: 04/26/2023 10:42 ALISA BROOKS [facility]
--- OUTSIDE RECORDS SUMMARY | 2023-12-24 09:45 | XMS_ITS | Encounter Summary ---
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 [facility] Address [address] [place] [address] Support Name Relationship Address Phone ENRIQUE LIM Next of Kin [address] [facility] [address] [place] [address] ENRIQUE LIM Emergency Contact [address] [address] [place], [place] [id number] GENTRY LIM Next of Kin [address] [place] [phone] GENTRY LIM Emergency Contact [address] [place] [address] Insurance Providers: All historical and [...] MEDIC ARE SUPPL EMENT Nov 06, 2018 [id number] [phone] BONY ILM PATIENT [facility] ([facility]) MEDICARE ADVANTAGE SENIO R GOLD INDIV IDU Nov 06, 2016 [id number] [phone] BONY LIM PATIENT [facility] MEDICARE SUPPLEMEN JAYNE MEDIC ARE SUPPL EMENT Nov 06, 2018 [id number] [phone] BONY LIM PATIENT MEDICARE ([facility]) MEDICARE () PART A Apr 06, 2015 PART A [id number] [phone] BONY LIM PATIENT MEDICARE ([facility]) MEDICARE (M) PART B Apr 06, 2015 PART B [id number] [phone] BONY LIM PATIENT Selected Encounter This section includes the information on record at [place] for the Encounter. Date/Time Encounter Type Encounter Description Reason Pro vider Source Apr 21, 2023 04:28 PM Outpatient Encounter GI ENDOSCOPY IHE Encounter Template Text not used by [place] Plan of Treatment: Future Appointments (+ 6 months) and Future Tests (+/- 45 days) The Plan of Treatment section includes future care activities for the patient from all [place] treatmentfacilities. This section includes future appointments and future orders which are active, pending or scheduled. Future Appointments This section includes appointments that were scheduled to occur 6 months from the date of the Encounter, up to a maximum of 20 appointments. The data comes from all [place] treatment facilities. Appointment Date/Time Appointment Type Appointme nt Facility Name Apr 25, 2023 09:00 AM [facility] Jul 03, 2023 11:00 AM [facility]AT[facility] - MEDICINE [facility] Aug 09, 2023 11:00 AM AMBULATORY - MEDICINE [facility] Social History: Smoking Status (Most current) and Tobacco Use (All prior to encounter date) This section includes the most current, and the historical, smoking and tobacco- related health factors from the [place] facility where the Encounter took place. Current Smoking Status This section includes the most current smoking, or tobacco-related health factor, from the [place] facility where the Encounter took place. Date/Time Current Smoking Status Comment Facil ity Apr 06, 2009 11:02 AM FORMER TOBACCO USER 7Y OR GREATE R [facility] Tobacco Use History This section includes a history of the smoking, or tobacco-related health factors, that were collected on or before the date of the Encounter. The data comes from the [place] facility where the Encounter took place. Date/Time Smoking Status/Tobacco Use Comment F acility Apr 09, 2008 09:43 AM FORMER TOBACCO USE >1Y <7Y [facility] Apr 17, 2007 08:30 AM FORMER TOBACCO USE >1Y <7Y [facility] Advance Directives: All historical and current Section Date Range: From patient's date of to the date document was created. This section includes ALL of a patient's completed or amended [place] Advance and Rescinded Directives. The entries below indicate that a directive exists for the patient, but an actual copy is not included with this document. The data comes from all [place] facilities. Date Advance Directives Provider Source Sep 11, 2014 CLINICAL WARNING COURTNEY TRAVIS [facility] Dec 17, 2003 ADVANCE DIRECTIVE ANA MCNEIL [facility] Pathology Reports: +/- 30 days of the [...] the Encounter. The data comes from all [place] treatment facilities. Date/Time Pathology Report Provider Source Apr 26, 2023 10:42 AM LR SURGICAL PATHOL OGJennifer REPORT: LOCAL TITLE: LR SURGICAL PATHOLOGY REPORT STANDARD TITLE: PATHOLOGY REPORT DATE OF NOTE: APR 26, 2023@10:42:56 ENTRY DATE: APR 26, 2023@10:42:56 AUTHOR: ALISA BROOKS EXP COSIGNER: URGENCY: STATUS: COMPLETED $APHDR Reporting Lab: [facility] [CLIA# [id number]] [place] [address] - - - - - - - [...] BROOKS STAFF PATHOLOGIST, PATHOLOGY & LABORATORY [place] [facility] [place] Signed Apr 26, 2023@10:42 Performing Laboratory: Surgical Pathology Report Performed By: [facility] [CLIA# [id number]] [place] [address] $FTR - - - - - - [...] - - JAYA LIM STANDARD FORM 515 ID:[id number] SEX:M :1950 AGE: 72 LOC:1153 PCP: Francisco keller/ ALISA BROOKS STAFF PATHOLOGIST, PATHOLOGY & LABORATORY MED [facility] Signed: 04/26/2023 10:42 ALISA BROOKS [facility] Encounter Notes: All associated encounter notes This section contains the clinical notes associated to the Encounter. Date/Time Encounter Note(s) Provider Source Apr 25, 2023 11:18 AM GASTROENTEROLOGY PROCEDURE NOTE: LOCAL TITLE: CP GASTROENTEROLOGY PROCEDURE STANDARD TITLE: GASTROENTEROLOGY PROCEDURE NOTE DATE OF NOTE: APR 25, 2023@11:18:45 ENTRY DATE: APR 25, 2023@11:18:45 AUTHOR: CLINICAL,DEVICE PRO EXP COSIGNER: URGENCY: STATUS: COMPLETED PROCEDURE SUMMARY CODE: Machine Resulted DATE/TIME PERFORMED: APR 25, 2023@09:32:1 DOCUMENT IN [facility] IMAGING SEE FULL REPORT IN VISTA IMAGING SIGNATURE NOT REQUIRED SEE SIGNATURE IN VISTA IMAGING (Provation (Colonoscopy)) AUTO-INSTRUMENT DIAGNOSIS Procedure: NOTETYPE Nurse Note Release Status: Released Off-Line Verified Date Verified: Apr 25, 2023@11:18:40 COVID-19 ASSESSMENT User:perrond Has the patient been tested for COVID-19: Have you experienced any of the following symptoms in the last 14 days:None Temperature (F):98.4 Comments: CHECK-IN User:perrond Procedure:Colon Upper procedure indication:N/A Lower procedure indication:Yes Lower procedure indication:Surveillance for colon polyp/cancer Patient identification:Name, Full Social Security Number ID band on:Yes Care Plan - monitor for procedural or sedation related events and to promote patient comfort and safety:Yes Any questions or patient concerns:No Time of last solid food:[place] noon Time of last liquid intake:299 prep Prep taken:Yes Prep type:Bisacodyl, GoLytely Percentage of prep taken:90-100% Split:Yes Time prep finished:299 Last BM:Clear Patient Labs:No Barrier to learning:Yes Barrier to learning:impaired hearing Can the patient sign their own consents:Yes Preferred Learning Style:Hands-on Pre and post procedure teaching given to:Patient Pre and post-procedure teaching completed:Yes Method:Verbal, Pamphlets, Visual Response to teaching - Demonstrates by stating/acknowledging understandi and post-procedure/discharge instruc Patient Mobility:Ambulatory w/o assist Transportation after procedure:Yes Wage And Hour Investigator location:Waiting Room Drivers phone#:[phone] Wage And Hour Investigator's name / relationship: Gentry Are we allowed to speak with your services delivery driver about your medical information post procedure:YES Anesthesia case:No Pre-Procedure / Active Medications Aspirin use NSAID use Opioid antagonist use: Anticoagulant use - Patient Denies Use Anticoagulant use: - Patient Denies Use Antiplatelet use: - Patient Denies Use NSAID use: - Patient Denies Use Steroid use - Patient Denies Use Opioid antagonist use: Buprenorphine Confirmed 04/25/2023 RN reviewed medications with patient. MD to review medications Confirmed 04/25/2023 ALLERGIES Iodine/Contrast Medium Allergy - Patient Denies Allergy - Iodine/Contrast Medium Allergy: - Patient Denies Allergy - Latex Allergy - Patient Denies Allergy - Latex Allergy: - Patient Denies Allergy - Penicillin - Confirmed 04/25/2023 HEALTH HISTORY User:perrond MEDICAL HISTORY status:N/A Cardiovascular:Yes Cardiovascular diagnoses:CABG, CAD, NM (Myocardial Infarction), Hypertension, Stent(s) Comments: Pulmonary:No GI:Yes GI diagnoses:GERD, Polyps Family History: Comments: Diabetes:No Renal/Endocrine:No Neuro/Musculoskeletal:No Miscellaneous / Infectious:No Psychiatric:No SURGICAL HISTORY Previous surgery:Yes Surgery:Appendectomy, Back Surgery History of problems with anesthesia:No Risk factors for post-sedation delirium:Yes Following risk factors:Age >70 SOCIAL HISTORY Nicotine/Smoking history:No Alcohol history:No Recreational drug use:No ALERTS Alert Comments Last Updated By Last Updated On Penicillin perrond 04/25/2023 9:37:31 AM Latex Allergy Patient Denies Allergy Unconfirmed Iodine/Contrast Medium Allergy Patient Denies Allergy Unconfirmed Latex Allergy: Patient Denies Allergy perrond 04/25/2023 9:37:32 AM Iodine/Contrast Medium Allergy: Patient Denies Allergy perrond 04/25/2023 9:37:33 AM Metal - No Metal Agatha, Arabella 04/25/2023 9:39:50 AM CODE STATUS - Full Agatha Arabella 04/25/2023 9:39:54 AM PATIENT ASSESSMENT - PREPROCEDURE User:perrond Time:04/25/2023 09:40 Level of conciousness:2 Fully awake Emotional Status:Calm, Cooperative Baseline pain:Yes Pain Score:5 Pain Location:right leg Pain medication last taken:Buprenorphrine this am Pain comments: Patients self reported pain during pre-procedure assessment will not be documented in every procedural assessment.: Skin:Warm Venous access device:No Pre-existing IV:No IV started:Yes IV Site:Right arm IV Type:Angiocath Size:20 gauge IV Solution:Saline Lock IV Rate: Inserted by:MELBA Valdivia PATIENT ASSESSMENT - INTRAPROCEDURE User:perrond Pt condition unchanged from pre-sedation assessment:Yes Dentures, glasses or hearing aid removed and stored:Yes Type:Glasses Loose Teeth:No Cardiac Rhythm Monitored:Yes Cardiac Rhythm:Sinus Rhythm Comments: TIME OUT All team members must concur verbally to each item on the checklist - Correct patient identification (full name, full Date of or Social Security number) - Correct Procedure (check order) - Correct site, including laterality if applicable - Valid iMED consent for correct procedure - Patient position is confirmed - Pertinent medical images have been confirmed (film or original report) - Correct medical implant(s) are available - Appropriate antibiotic prophylaxis - Appropriate deep vein thrombosis prophylaxis if applicable - Blood availability if applicable TIME OUT - Fire Risk Assessment completed Time out: Post Procedure Debrief Nurse verbally confirms with team: To endoscopist, shirring machine operator and nurse: DISCHARGE QUESTIONS User:herzo Pain now:No Cardiac Rhythm Monitored:Yes Cardiac Rhythm:Regular, Bradycardia Comments: IV Discontinued:Yes Time IV Discontinued:04/25/2023 11:17 Total Amount Infused (mL): IV Site Condition:Intact Wristband:Removed from patient and placed in secure shred bin, per policy. Discharge Criteria met:Yes Post-procedure education completed:Yes Patient and/or Family given opportunity to ask questions and questions answered:Yes Patient and/or Family stated understanding of post-procedure instructions:Yes Patient/family/caregiver include signs and sympto activity/diet/medication Discharge instructions/pamphlets given:Yes Topic(s):Colonoscopy, Polyps Follow up (months/years):None Released to:Self with adult when applicable Transportation after procedure:Yes Wage And Hour Investigator location:Waiting Room Drivers phone#:[phone] Wage And Hour Investigator's name / relationship: Gentry Are we allowed to speak with your services delivery driver about your medical information post procedure:YES Comments:Pt left clinic area ambulatory w/ Gentry. Events Reporting Report ADR Hotline #[id number] Should any of the following occur during the procedure, forward a copy of this form to C.I. (OOD).: Adverse event(s):No Medications Time Medication Dose Entered By Notes 10:18:08 Versed IV 2 mg Total: 5 mg perrond 10:13:53 Versed IV 1 mg perrond 10:13:52 Fentanyl IV 100 mcg Total: 200 mcg perrond 10:08:34 Fentanyl IV 100 mcg perrond 10:08:34 Versed IV 2 mg perrond 10:06:40 Diphenhydramine 25mg/50mg 50 mg Total: 50 mg perrond No Notes Taken Néstor Score Time Activity Resp Circulation LOC O2 Sat Entered By Total Score Notes 11:01:18 2 2 2 1 2 herzo 9 10:37:17 2 2 2 1 2 perrond 9 No Notes Taken Vitals Time BP HR RESP O2 Sat CO2 Entered By 11:08:07 147/65 58 22 94 - herzo 10:51:50 143/65 52 - 97 - herzo 10:43:29 161/69 60 17 95 - herzo 10:36:57 132/68 59 16 99 - perrond 10:34:21 129/62 58 19 100 - perrond 10:31:17 -/- 63 20 100 - perrond 10:27:26 136/78 61 18 100 - perrond 10:24:03 144/73 55 17 100 - perrond 10:21:32 151/78 64 20 100 - perrond 10:18:23 183/84 55 18 98 - perrond 10:15:57 180/106 64 - 98 - perrond 10:14:07 163/82 61 24 97 - perrond 10:13:36 160/77 64 21 100 - perrond 10:11:07 165/74 55 15 97 - perrond 10:09:04 168/79 48 15 100 - perrond 10:08:18 175/84 63 26 99 - perrond 09:57:30 128/71 60 27 96 - perrond 09:43:02 154/70 56 12 100 - perrond No Notes Taken PROCEDURE LOG Time Data Entered By 11:17:23 Patient Activities : Getting dressed herzo 11:08:16 Pain now? : No herzo 11:08:13 Patient Monitoring : Level of comfort : Comfortable, Procedure tolerance : -, Level of conciousness : 2 Fully awake or returned to presedation LOC herzo 11:02:35 Patient Activities : Sitting at side of bed,Denies dizziness/light headedness,Denies nausea,Offers no complaints,Drinking fluids herzo 10:52:00 Patient Monitoring : Level of comfort : Comfortable, Procedure tolerance : -, Level of conciousness : 1 Arousable on calling, presence of protective reflexes herzo 10:43:38 Pain now? : No herzo 10:43:33 Patient Monitoring : Level of comfort : Comfortable, Procedure tolerance : -, Level of conciousness : 1 Arousable on calling, presence of protective reflexes herzo 10:41:35 Notes: Report from Arabella SERNA herzo 10:37:06 Level of comfort : Comfortable perrond 10:37:06 Response to medication/agent : Sedating perrond 10:37:05 Procedure tolerance : Well perrond 10:37:03 Level of conciousness : 1 Arousable on calling, presence of protective reflexes perrond 10:34:38 Pain now? : No perrond 10:34:34 Level of conciousness : 1 Arousable on calling, presence of protective reflexes perrond 10:34:32 Procedure tolerance : Well perrond 10:34:31 Response to medication/agent : Calming perrond 10:34:23 Level of comfort : Comfortable perrond 10:27:45 Level of comfort : Restless perrond 10:27:44 Response to medication/agent : Restless perrond 10:27:43 Procedure tolerance : Well perrond 10:27:40 Level of conciousness : 1 Arousable on calling, presence of protective reflexes perrond 10:24:20 Level of comfort : Comfortable perrond 10:24:20 Response to medication/agent : Restless perrond 10:24:19 Procedure tolerance : Well perrond 10:24:16 Level of conciousness : 1 Arousable on calling, presence of protective reflexes perrond 10:21:46 Level of comfort : Comfortable perrond 10:21:46 Response to medication/agent : Calming perrond 10:21:45 Procedure tolerance : Well perrond 10:21:42 Level of conciousness : 1 Arousable on calling, presence of protective reflexes perrond 10:18:41 Level of comfort : Comfortable perrond 10:18:40 Response to medication/agent : Calming perrond 10:18:39 Procedure tolerance : Well perrond 10:18:36 Level of conciousness : 1 Arousable on calling, presence of protective reflexes perrond 10:18:02 Level of comfort : Uncomfortable perrond 10:18:02 Response to medication/agent : Voicing discomfort perrond 10:18:01 Procedure tolerance : Pain perrond 10:17:58 Level of conciousness : 2 Fully awake or returned to presedation LOC perrond 10:14:20 Level of comfort : Comfortable perrond 10:14:19 Response to medication/agent : Calming perrond 10:14:18 Procedure tolerance : Well perrond 10:14:16 Level of conciousness : 2 Fully awake or returned to presedation LOC perrond 10:13:46 Level of comfort : Comfortable perrond 10:13:45 Response to medication/agent : Calming perrond 10:13:44 Procedure tolerance : Well perrond 10:13:42 Level of conciousness : 2 Fully awake or returned to presedation LOC perrond 10:11:22 Level of comfort : Comfortable perrond 10:11:21 Response to medication/agent : Calming perrond 10:11:20 Procedure tolerance : Well perrond 10:11:18 Level of conciousness : 1 Arousable on calling, presence of protective reflexes perrond 10:09:16 Level of conciousness : 2 Fully awake or returned to presedation LOC perrond 10:09:15 Procedure tolerance : Well perrond 10:09:13 Response to medication/agent : Calming perrond 10:09:11 Level of comfort : Comfortable perrond 10:08:32 Level of comfort : Comfortable perrond 10:08:31 Response to medication/agent : No effect perrond 10:08:30 Procedure tolerance : Well perrond 10:08:28 Level of conciousness : 2 Fully awake or returned to presedation LOC perrond 09:57:46 Level of comfort : Comfortable perrond 09:57:44 Level of conciousness : 2 Fully awake or returned to presedation LOC perrond 09:41:55 Level of comfort : Comfortable perrond 09:41:53 Level of conciousness : 2 Fully awake or returned to presedation LOC perrond Specimens Collected Jar Sample Type Procedure Lab Type Location Indication Entered By 1 Polypectomy Colonoscopy Histology Colon - Sigmoid Polyp, R/O Adenoma perrond Time Tracking Time Event Entered By 11:17:32 Discharged zo 10:37:21 To recovery room with RN perrond 10:31:52 Recovery start perrond 10:31:50 Scope out perrond 10:16:43 Extent Reached perrond 10:13:49 Scope in perrond 10:03:12 Time out perrond 10:03:11 MD in procedure room perrond 09:57:28 Patient in procedure room perrond 09:49:55 MD consenting patient perrond 09:44:14 Patient Ready for Procedure perrond 08:43:00 Preprocedure perrond 08:43:00 Arrival perrond Provider Signatures Analia Dodson (herzo) ESIGNED - 04/25/2023 11:18:21 Arabella Snider (perrond) ESIGNED - 04/25/2023 10:37:30 Administrative Closure: 04/25/2023 by: CLINICAL,DEVICE PROXY SERVICE CLINICAL,DEVICE PROXY SERVICE [facility] Apr 25, 2023 10:41 AM GASTROENTEROLOGY PROCEDURE NOTE: LOCAL TITLE: CP GASTROENTEROLOGY PROCEDURE STANDARD TITLE: GASTROENTEROLOGY PROCEDURE NOTE DATE OF NOTE: APR 25, 2023@10:41:33 ENTRY DATE: APR 25, 2023@10:41:33 AUTHOR: CLINICAL,DEVICE PRO EXP COSIGNER: URGENCY: STATUS: COMPLETED PROCEDURE SUMMARY CODE: Machine Resulted DATE/TIME PERFORMED: APR 25, 2023@09:32:1 DOCUMENT IN VISTA IMAGING SEE FULL REPORT IN VISTA IMAGING SIGNATURE NOT REQUIRED SEE SIGNATURE IN VISTA IMAGING (Provation (Colonoscopy)) AUTO-INSTRUMENT DIAGNOSIS Procedure: [id number] GI PROCEDURE Release Status: Released Off-Line Verified Date Verified: Apr 25, 2023@10:41:28 Anticoagulation: No Fellow Participation : No fellow particpation. AI: AI was used. Polyps Per Colonoscopy: 2 Procedure: Colonoscopy Indications: High risk colon cancer surveillance: Personal history of colonic polyps Medicines: Diphenhydramine 25mg/50mg 50 mgs, Fentanyl IV 200 mcgs, Versed IV 5 mgs Complications: No immediate complications. Procedure: After I obtained informed consent, the scope was passed under direct vision. Throughout the procedure, the patient's blood pressure, pulse, and oxygen saturations were monitored continuously. The Colonoscope was introduced through the anus and advanced to the cecum, identified by appendiceal orifice and ileocecal valve. The colonoscopy was performed without difficulty. The patient tolerated the procedure well. The quality of the bowel preparation was evaluated using the BBPS ([place] Bowel Preparation Scale) with scores of: Right Colon = 3 (entire mucosa seen well with no residual staining, small fragments of stool or opaque liquid), Transverse Colon = 3 (entire mucosa seen well with no residual staining, small fragments of stool or opaque liquid) and Left Colon = 2 (minor amount of residual staining, small fragments of stool and/or opaque liquid, but mucosa seen well). The total BBPS score equals 8. Findings: The transverse colon, ascending colon and cecum appeared normal. Two semi-sessile polyps were found in the sigmoid colon. The polyps were 2 to 3 mm in size. These polyps were removed with a cold snare. Resection and retrieval were complete. The rectum appeared normal. The retroflexed view of the distal rectum and anal verge was normal and showed no anal or rectal abnormalities. Moderate Sedation: Moderate (conscious) sedation was administered by the endoscopy nurse and supervised by the endoscopist. The patient's oxygen saturation, heart rate, blood pressure and response to care were monitored. Total physician intraservice time was 20 minutes. Impression: - The transverse colon, ascending colon and cecum are normal. - Two 2 to 3 mm polyps in the sigmoid colon, removed with a cold snare. Resected and retrieved. - The rectum is normal. - The distal rectum and anal verge are normal on retroflexion view. Recommendation: - Discharge patient to home. - I will follow-up pathology results. - Given the patient's age no further colon cancer screening/surveillance is necessary. Electronically signed by MD Dung Turner MD 04/25/2023 10:56:37 AM Number of Addenda: 0 Note Initiated On: 04/25/2023 9:32 AM Scope In: 10:13:25 AM Scope Out: 10:31:52 AM [facility] [address] [place] [address] --- Administrative Closure: 04/25/2023 by: CLINICAL,DEVICE PROXY SERVICE CLINICAL,DEVICE PROXY SERVICE [facility]
--- OUTSIDE RECORDS SUMMARY | 2023-12-24 09:46 | XMS_ITS | Encounter Summary ---
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 Department of Vetera Affairs Address [address] [place] [address] Support Name Relationship Address Phone ENRIQUE LIM Next of Kin [address] [place] [address] ENRIQUE LIM Emergency Contact [address] [facility] [address] [place] [address] GENTRY LIM Next of Kin [address] [place] [phone] GENTRY LIM Emergency Contact [address] [place] [phone] Insurance Providers: All historical and current [...] MEDIC ARE SUPPL EMENT Nov 06, 2018 [id number] BONY LIM PATIENT [facility] ([facility]) MEDICARE ADVANTAGE SENIO R GOLD INDIV IDU Nov 06, 2016 [id number] [phone] BONY LIM PATIENT [facility] MEDICARE SUPPLEMEN JAYNE MEDIC ARE SUPPL EMENT Nov 06, 2018 [id number] BONY LIM PATIENT MEDICARE ([facility]) MEDICARE (M) PART A Apr 06, 2015 PART A [id number] [phone] BONY LIM PATIENT MEDICARE ([facility]) MEDICARE (M) PART B Apr 06, 2015 PART B [id number] [phone] BONY LIM PATIENT Selected Encounter This section includes the information on record at [place] for the Encounter. 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 Date/Time Primary/Secondary Diagnosis Diagnosis Name Provider Source Aug 09, 2023 11:00 AM PRIMARY Athscl heart disease of [place] coronary artery w/o [facility] Social History: Smoking Status (Most current) and Tobacco Use (All prior to encounter date) This section includes the most current, and the historical, smoking and tobacco- related health factors from the [place] facility where the Encounter took place. Current Smoking Status This section includes the most current smoking, or tobacco-related health factor, from the [place] facility where the Encounter took place. Date/Time Current Smoking Status Comment Shashank dominguez Jan 18, 2023 10:00 AM VA-TOBACCO QUIT 15 YRS OR MORE [facility] Tobacco Use History This section includes a history of the smoking, or tobacco-related health factors, that were collected on or before the date of the Encounter. The data comes from the [place] facility where the Encounter took place. Date/Time Smoking Status/Tobacco Use Comment F acantionette Jan 18, 2023 10:00 AM VA-TOBACCO QUIT 15 YRS OR MORE [facility] Nov 10, 2021 09:30 AM VA-TOBACCO FORMER USER [facility] Nov 10, 2021 09:30 AM VA-TOBACCO QUIT 15 YRS OR MORE [facility] Oct 09, 2020 09:00 AM VA-TOBACCO FORMER USER [facility] Oct 09, 2020 09:00 AM VA-TOBACCO QUIT 15 YRS OR MORE [facility] Sep 30, 2019 09:37 AM VA-TOBACCO FORMER USER [facility] Sep 30, 2019 09:37 AM VA-TOBACCO QUIT 15 YRS OR MORE [facility] Aug 29, 2018 11:24 AM VA-TOBACCO FORMER USER [facility] Aug 29, 2018 11:24 AM VA-TOBACCO QUIT 15 YRS OR MORE [facility] Oct 17, 2017 11:00 AM FORMER TOBACCO USER 7Y OR DEBBIEE R [facility] Jun 20, 2016 12:43 PM FORMER TOBACCO USER 7Y OR GREATE R [facility] Apr 10, 2015 10:31 AM FORMER TOBACCO USER 7Y OR GREATE R [facility] May 12, 2014 01:03 PM FORMER TOBACCO USER 7Y OR GREATE R [facility] Advance Directives: All historical and current Section Date Range: From patient's date of to the date document was created. This section includes ALL of a patient's completed or amended [place] Advance and Rescinded Directives. The entries below indicate that a directive exists for the patient, but an actual copy is not included with this document. The data comes from all [place] facilities. Date Advance Directives Provider Source Sep 11, 2014 CLINICAL WARNING COURTNEY TRAVIS [facility] Dec 17, 2003 ADVANCE DIRECTIVE ANA MCNEIL [facility] Encounter Notes: All associated encounter notes This section contains the clinical notes associated to the Encounter. Date/Time Encounter Note(s) Provider Source Aug 09, 2023 11:05 AM NURSING OUTPATIENT NOTE: LOCAL TITLE: [facility] NURSING RN NOTE STANDARD TITLE: NURSING OUTPATIENT NOTE DATE OF NOTE: AUG 09, 2023@11:05 ENTRY DATE: AUG 09, 2023@11:05:30 AUTHOR: OMAIRA MENENDEZ EXP COSIGNER: URGENCY: STATUS: COMPLETED TYPE OF VISIT: Telephone REASON FOR VISIT: HTN Management Preferred name: Gabriele Spoke with vannessa. reports he is feeling fine, denying any acute complaints. HTN Medication: none *Vannessa was recently instructed to discontinue taking metoprolol by PACT PharmD secondary to lack of indication for ongoing beta-earl use and symptomatic hypotension. Of note, since vannessa discontinued taking metoprolol, he reports one episode of pressure in his chest while raking. He denies having any SOB or palpitations. Vannessa has a hx of OR and denies that the sx were similar to his previous cardiac event. No further episodes, but he did have GERD/heartburn this AM that is unusual. Advised that given his previous cardiovascular hx, if he has any further cardiac sx, including chest pressure and/or GERD, he should proceed directly to the ED/call 911. Vannessa agreed. Home BP Readings: 1-Sep 117 65 100 101 58 80 Overall 109 68 87 128 74 71 117 144 75 84 128 74 71 69 113 74 101 26 68 63 84 108 84 111 97 73 85 98 64 103 123 76 81 140 77 105 124 79 87 127 73 100 130 73 92 137 78 95 120 53 84 112 64 71 100 66 80 119 72 78 99 58 105 108 64 77 128 66 94 122 58 86 123 70 71 137 66 77 131 87 64 112 70 86 125 70 67 130 73 71 135 76 82 116 65 85 123 64 95 108 63 75 Average 121 69 92 113 70 77 Maximum 144 84 111 131 87 92 Minimum 98 53 71 26 58 63 *Advised vannessa that his BP readings are at goal. 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 Vannessa is scheduled for surgical removal of his spinal cord stimulator on 08/15/23. He had his pre-op exam on 08/03/23. Hemoglobin is low at 11.7. Vannessa states he prefers to follow up with [facility]. PLAN: If cardiac sx or GERD returns, go to the ED/call 911. Follow up with community PCP for chest pressure/GERD sx and anemia. /kristy/ OMAIRA MENENDEZ RN REGISTERED NURSE Signed: 08/09/2023 13:58 Receipt Acknowledged By: 08/09/2023 14:36 /kristy/ RAMBO BOYER CLINICAL SHAKE CUTTER OMAIRA MENENDEZ [facility]
--- OUTSIDE RECORDS SUMMARY | 2023-12-24 09:46 | XMS_ITS | Encounter Summary ---
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 [facility] Address [address] [place] [address] Support Name Relationship Address Phone ENRIQUE LIM Next of Kin [address] [place] [address] ENRIQUE LIM Emergency Contact [address] [facility] [facility] [address] [place] [address] GENTRY LIM Next of Kin [address] [place] [phone] GENTRY LIM Emergency Contact [address] [place] [phone] Insurance Providers: All historical and [...] MEDIC ARE SUPPL EMENT Nov 06, 2018 [id number] [phone] BONY LIM PATIENT [facility] ([facility]) MEDICARE ADVANTAGE SENIO R GOLD INDIV IDU Nov 06, 2016 [id number] [phone] BONY LIM PATIENT [facility] MEDICARE SUPPLEMEN JAYNE MEDIC ARE SUPPL EMENT Nov 06, 2018 [id number] [phone] BONY LIM PATIENT MEDICARE ([facility]) MEDICARE () PART A Apr 06, 2015 PART A [id number] [phone] BONY LIM PATIENT MEDICARE (WNR) MEDICARE (M) PART B Apr 06, 2015 PART B [id number] [phone] BONY LIM PATIENT Selected Encounter This section includes the information on record at [place] for the Encounter. Date/Time Encounter Type Encounter Description Reason Pro vider Source Jun 13, 2023 12:09 PM Outpatient Encounter PRIMARY CARE/MEDICINE IHE Encounter Template Text not used by [place] Plan of Treatment: Future Appointments (+ 6 months) and Future Tests (+/- 45 days) The Plan of Treatment section includes future care activities for the patient from all [place] treatmentfacilities. This section includes future appointments and future orders which are active, pending or scheduled. Future Appointments This section includes appointments that were scheduled to occur 6 months from the date of the Encounter, up to a maximum of 20 appointments. The data comes from all [place] treatment facilities. Appointment Date/Time Appointment Type Appointme nt Facility Name Jul 03, 2023 11:00 AM AMBULATORY - MEDICINE [facility] Aug 09, 2023 11:00 AM AMBULATORY - [facility]ICINE [facility] Social History: Smoking Status (Most current) and Tobacco Use (All prior to encounter date) This section includes the most current, and the historical, smoking and tobacco- related health factors from the [place] facility where the Encounter took place. Current Smoking Status This section includes the most current smoking, or tobacco-related health factor, from the [place] facility where the Encounter took place. Date/Time Current Smoking Status Comment Facil ity Apr 06, 2009 11:02 AM FORMER TOBACCO USER [address]Y OR GREATE R [facility] Tobacco Use History This section includes a history of the smoking, or tobacco-related health factors, that were collected on or before the date of the Encounter. The data comes from the [place] facility where the Encounter took place. Date/Time Smoking Status/Tobacco Use Comment F acility Apr 09, 2008 09:43 AM FORMER TOBACCO USE >1Y <7Y [facility] Apr 17, 2007 08:30 AM FORMER TOBACCO USE >1Y <7Y [facility] Advance Directives: All historical and current Section Date Range: From patient's date of to the date document was created. This section includes ALL of a patient's completed or amended [place] Advance and Rescinded Directives. The entries below indicate that a directive exists for the patient, but an actual copy is not included with this document. The data comes from all [place] facilities. Date Advance Directives Provider Source Sep 11, 2014 CLINICAL WARNING COURTNEY TRAVIS [facility] Dec 17, 2003 [address] ANA MCNEIL [facility] Encounter Notes: All associated encounter notes This section contains the clinical notes associated to the Encounter. Date/Time Encounter Note(s) Provider Source Jun 30, 2023 02:53 PM ADDENDUM: LOCAL TITLE: Addendum STANDARD TITLE: ADDENDUM DATE OF NOTE: JUN 30, 2023@14:53:35 ENTRY DATE: JUN 30, 2023@14:53:37 AUTHOR: ALDEN LENZ EXP COSIGNER: URGENCY: STATUS: COMPLETED Date SBP DBP HR SBP DBP HR 118 64 72 98 62 63 Overall 105 68 84 116 73 71 115.56 117 69 77 107 73 65 66 124 75 79 120 60 68 68.28 106 67 74 105 58 65 126 74 75 86 53 55 110 86 66 135 60 65 124 67 63 116 64 57 141 74 75 119 64 59 140 62 79 108 59 61 122 67 82 114 66 55 120 66 69 104 56 49 108 63 79 Average 120 69 75 111 62 61 Maximum 141 86 84 135 73 71 Minimum 105 62 63 86 53 49 No dates given RN follow up 07/03/23 /kristy/ ALDEN LENZ MA, TANIYA [facility] Signed: 06/30/2023 14:54 Receipt Acknowledged By: 07/04/2023 12:37 /kristy/ RAMBO BOYER CLINICAL RIVETER HAND --- Original Document --- 06/13/23 PATIENT CONTACT NOTE: Patient contact Name of : JAYA LIM Name/Relationship of Contact if other than [place]: Date & Time of Contact: Jun@12:09 Type of Contact: Telephone Reason for Contact: HELEN WOULD LIKE A CALL BACK IN REGARDS TO CUTTING DOWN ON HIS MEDICATION. /es/ [facility] Signed: 06/13/2023 12:10 Receipt Acknowledged By: 06/14/2023 13:15 /es/ OMAIRA MENENDEZ RN REGISTERED NURSE 06/14/2023 ADDENDUM STATUS: COMPLETED Routing to RN for assistance. /kristy/ OMAIRA MENENDEZ RN REGISTERED NURSE Signed: 06/14/2023 13:16 Receipt Acknowledged By: 06/15/2023 08:41 /kristy/ PETRA JOHNS RN, CHAPO PACT RN 06/15/2023 ADDENDUM STATUS: COMPLETED called back and would like the nurse to call him. /kristy/ [facility] Signed: 06/15/2023 10:58 Receipt Acknowledged By: 06/15/2023 11:46 /kristy/ PETRA JOHNS RN, CHAPO PACT RN 06/15/2023 ADDENDUM STATUS: COMPLETED RN called . He was taking 200mg of Metopolol METOPROLOL SUCCINATE TAB,SA 100MG TAKE ONE TABLET BY MOUTH EVERY DAY Indication: FOR HEART HEALTH He talked to his PACT RN and dropped the dose to 100mg Independently he dropped his dose to 50mg (cuts pills in half). Now today he is asking to be sent 12.5mg tablets to increase the dose. He states that he has no idea what the right dosage should be. Delfin does not take his BP and HR on regular basis. He does not have any symptoms that cause him to change the dose. RN asked if he could track his blood pressure and heart rate bid x 2 weeks. He agreed to do this. He will make a chart. He will mail to clinic when completed. He agreed to RN f/u call 07/03 to review readings and then discuss changing medication. PLAN: scheduled 07/03 RN telephone clinic appt /kristy/ PETRA JOHNS RN, CHAPO PACT RN Signed: 06/15/2023 12:02 ALDEN LENZ [facility] Jun 15, 2023 10:57 AM ADDENDUM: LOCAL TITLE: Addendum STANDARD TITLE: ADDENDUM DATE OF NOTE: JUN 15, 2023@10:57:52 ENTRY DATE: JUN 15, 2023@10:57:53 AUTHOR: FORD GODINEZ EXP COSIGNER: URGENCY: STATUS: COMPLETED called back and would like the nurse to call him. /kristy/ [facility] Signed: 06/15/2023 10:58 Receipt Acknowledged By: 06/15/2023 11:46 /kristy/ PETRA JOHNS RN, GISSELOCN PACT RN --- Original Document --- 06/13/23 PATIENT CONTACT NOTE: Patient contact Name of [place]: JAYA LIM Name/Relationship of Contact if other than [place]: Date & Time of Contact: Jun@12:09 Type of Contact: Telephone Reason for Contact: HELEN WOULD LIKE A CALL BACK IN REGARDS TO CUTTING DOWN ON HIS MEDICATION. /es/ FORD [facility] Signed: 06/13/2023 12:10 Receipt Acknowledged By: 06/14/2023 13:15 /gilson MENENDEZ RN REGISTERED NURSE 06/14/2023 ADDENDUM STATUS: COMPLETED Routing to RN for assistance. /gilson MENENDEZ RN REGISTERED NURSE Signed: 06/14/2023 13:16 Receipt Acknowledged By: 06/15/2023 08:41 /kristy/ PETRA JOHNS RN, GISSELOCN PACT KAREEM GODINEZARASH LEONARD [facility] Jun 14, 2023 01:16 PM ADDENDUM: LOCAL TITLE: Addendum STANDARD TITLE: ADDENDUM DATE OF NOTE: JUN 14, 2023@13:16:07 ENTRY DATE: JUN 14, 2023@13:16:08 AUTHOR: OMAIRA MENENDEZ EXP COSIGNER: URGENCY: STATUS: COMPLETED Routing to RN for assistance. /gilson MENENDEZ RN REGISTERED NURSE Signed: 06/14/2023 13:16 Receipt Acknowledged By: 06/15/2023 08:41 /kristy/ PETRA JOHNS RN, SOBIAN PACT RN --- Original Document --- 06/13/23 PATIENT CONTACT NOTE: Patient contact Name of : JAYA LIM Name/Relationship of Contact if other than : Date & Time of Contact: Jun@12:09 Type of Contact: Telephone Reason for Contact: HELEN WOULD LIKE A CALL BACK IN REGARDS TO CUTTING DOWN ON HIS MEDICATION. /kristy/ [facility] Signed: 06/13/2023 12:10 Receipt Acknowledged By: 06/14/2023 13:15 /kristy/ OMAIRA MENENDEZ RN REGISTERED NURSE OMAIRA MENENDEZ [facility] Jun 13, 2023 12:09 PM REPORT OF CONTACT: LOCAL TITLE: PATIENT CONTACT NOTE STANDARD TITLE: REPORT OF CONTACT DATE OF NOTE: JUN 13, 2023@12:09 ENTRY DATE: JUN 13, 2023@12:09:38 AUTHOR: FORD GODINEZ COSIGNER: URGENCY: STATUS: COMPLETED PATIENT CONTACT NOTE Has ADDENDA Patient contact Name of : JAYA LIM Name/Relationship of Contact if other than [place]: Date & Time of Contact: Jun@12:09 Type of Contact: Telephone Reason for Contact: HELEN WOULD LIKE A CALL BACK IN REGARDS TO CUTTING DOWN ON HIS MEDICATION. /kristy/ [facility] Signed: 06/13/2023 12:10 Receipt Acknowledged By: 06/14/2023 13:15 /kristy/ OMAIRA MENENDEZ RN REGISTERED NURSE 06/14/2023 ADDENDUM STATUS: COMPLETED Routing to RN for assistance. /kristy/ OMAIRA MENENDEZ RN REGISTERED NURSE Signed: 06/14/2023 13:16 Receipt Acknowledged By: 06/15/2023 08:41 /es/ PETRA JOHNS RN, CWYELITZA PACT RN 06/15/2023 ADDENDUM STATUS: COMPLETED [place] called back and would like the nurse to call him. /kristy/ [facility] Signed: 06/15/2023 10:58 Receipt Acknowledged By: 06/15/2023 11:46 /es/ PETRA JOHNS RN, CHAPO PACT RN 06/15/2023 ADDENDUM STATUS: COMPLETED RN called . He was taking 200mg of Metopolol METOPROLOL SUCCINATE TAB,SA 100MG TAKE ONE TABLET BY MOUTH EVERY DAY Indication: FOR HEART HEALTH He talked to his PACT RN and dropped the dose to 100mg Independently he dropped his dose to 50mg (cuts pills in half). Now today he is asking to be sent 12.5mg tablets to increase the dose. He states that he has no idea what the right dosage should be. does not take his BP and HR on regular basis. He does not have any symptoms that cause him to change the dose. RN asked if he could track his blood pressure and heart rate bid x 2 weeks. He agreed to do this. He will make a chart. He will mail to clinic when completed. He agreed to RN f/u call 07/03 to review readings and then discuss changing medication. PLAN: scheduled 07/03 RN telephone clinic appt /es/ PETRA JOHNS RN, CHAPO PACT RN Signed: 06/15/2023 12:02 06/30/2023 ADDENDUM STATUS: COMPLETED Date SBP DBP HR SBP DBP HR 118 64 72 98 62 63 Overall 105 68 84 116 73 71 115.56 117 69 77 107 73 65 66 124 75 79 120 60 68 68.28 106 67 74 105 58 65 126 74 75 86 53 55 110 86 66 135 60 65 124 67 63 116 64 57 141 74 75 119 64 59 140 62 79 108 59 61 122 67 82 114 66 55 120 66 69 104 56 49 108 63 79 Average 120 69 75 111 62 61 Maximum 141 86 84 135 73 71 Minimum 105 62 63 86 53 49 No dates given RN follow up 07/03/23 /kristy/ ALDEN LENZ MA, TANIYA [facility] Signed: 06/30/2023 14:54 Receipt Acknowledged By: * AWAITING SIGNATURE * RAMBO BOYER,FORD [facility]ON[facility]
--- OUTSIDE RECORDS SUMMARY | 2023-12-24 09:46 | XMS_ITS | Encounter Summary ---
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 [facility] Address [address] [place] [address] Support Name Relationship Address Phone ENRIQUE LIM Next of Kin [address] [place] [address] ENRIQUE LIM Emergency Contact [address] [address] [place] [address] GENTRY LIM Next of Kin [address] [place] [phone] GENTRY LIM Emergency Contact [address] [place] [address] Insurance Providers: All historical and [...] Doshi's Name Patient's Relationship to Policy Doshi [facility] MEDICARE SUPPLEMEN JAYNE MEDIC ARE SUPPL EMENT Nov 06, 2018 [id number] BONY LIM PATIENT [facility] ([facility]) MEDICARE ADVANTAGE SENIO R GOLD INDIV IDU Nov 06, 2016 [id number] [phone] BONY LIM PATIENT [facility] MEDICARE SUPPLEMEN JAYNE MEDIC ARE SUPPL EMENT Nov 06, 2018 [id number] [phone] BONY LIM PATIENT MEDICARE ([facility]) MEDICARE (M) PART A Apr 06, 2015 PART A [id number] [phone] BONY LIM PATIENT MEDICARE (WNR) MEDICARE (M) PART B Apr 06, 2015 PART B [id number] [phone] BONY LIM PATIENT Selected Encounter This section includes the information on record at [place] for the Encounter. Date/Time Encounter Type Encounter Description Reason Provider Source Apr 26, 2023 10:42 AM Outpatient Encounter EVENT (HISTORICAL) ALISA BROOKS IHOpal Encounter Template Text not used by [place] Plan of Treatment: Future Appointments (+ 6 months) and Future Tests (+/- 45 days) The Plan of Treatment section includes future care activities for the [facility] This section includes future appointments and future orders which are active, pending or scheduled. Future Appointments This section includes appointments that were scheduled to occur 6 months from the date of the Encounter, up to a maximum of 20 appointments. The data comes from all [place] treatment facilities. Appointment Date/Time Appointment Type Appointme nt Facility Name Jul 03, 2023 11:00 AM AMBULATORY - MEDICINE [facility] Aug 09, 2023 11:00 AM AMBULATORY - MEDICINE [facility] Social History: Smoking Status (Most current) and Tobacco Use (All prior to encounter date) This section includes the most current, and the historical, smoking and tobacco- related health factors from the [place] facility where the Encounter took place. Current Smoking Status This section includes the most current smoking, or tobacco-related health factor, from the [place] facility where the Encounter took place. Date/Time Current Smoking Status Comment Facil ity Apr 06, 2009 11:02 AM FORMER TOBACCO USER 7Y OR GREATE R [facility] Tobacco Use History This section includes a history of the smoking, or tobacco-related health factors, that were collected on or before the date of the Encounter. The data comes from the [place] facility where the Encounter took place. Date/Time Smoking Status/Tobacco Use Comment F acility Apr 09, 2008 09:43 AM FORMER TOBACCO USE >1Y <7Y [facility] Apr 17, 2007 08:30 AM FORMER TOBACCO USE >1Y <7Y [facility] Advance Directives: All historical and current Section Date Range: From patient's date of to the date document was created. This section includes ALL of a patient's completed or amended [place] Advance and Rescinded Directives. The entries below indicate that a directive exists for the patient, but an actual copy is not included with this document. The data comes from all [facility] facilities. Date Advance Directives Provider Source Sep 11, 2014 CLINICAL WARNING COURTNEY TRAVIS [facility] Dec 17, 2003 ADVANCE DIRECTIVE ANA MCNEIL [facility] Pathology Reports: +/- 30 days [...] the Encounter. The data comes from all [place] treatment facilities. Date/Time Pathology Report Provider Source Apr 26, 2023 10:42 AM LR SURGICAL PATHOL OGY REPORT: LOCAL TITLE: LR SURGICAL PATHOLOGY REPORT STANDARD TITLE: PATHOLOGY REPORT DATE OF NOTE: APR 26, 2023@10:42:56 ENTRY DATE: APR 26, 2023@10:42:56 AUTHOR: ALISA BROOKS EXP COSIGNER: URGENCY: STATUS: COMPLETED $APHDR Reporting Lab: [facility] [CLIA# [id number]] [place] [address] - - - - - - - [...] BROOKS STAFF PATHOLOGIST, PATHOLOGY & LABORATORY MED [facility] [place] Signed Apr 26, 2023@10:42 Performing Laboratory: Surgical Pathology Report Performed By: [facility] [CLIA# [id number]] [place] [address] $FTR - - - - - - [...] - - JAYA LIM STANDARD FORM 515 ID:[id number] SEX:M :1950 AGE: 72 LOC:1153 PCP: Francisco keller/ ALISA BROOKS STAFF PATHOLOGIST, PATHOLOGY & LABORATORY MED [facility] Signed: 04/26/2023 10:42 ALISA BROOKS [facility] Encounter Notes: All associated encounter notes This section contains the clinical notes associated to the Encounter. Date/Time Encounter Note(s) Provider Source Apr 26, 2023 10:42 AM PATHOLOGY REPORT: LOCAL TITLE: LR SURGICAL PATHOLOGY REPORT STANDARD TITLE: PATHOLOGY REPORT DATE OF NOTE: APR 26, 2023@10:42:56 ENTRY DATE: APR 26, 2023@10:42:56 AUTHOR: ALISA BROOKS EXP COSIGNER: URGENCY: STATUS: COMPLETED $APHDR Reporting Lab: [facility] [CLIA# [id number]] [place] [address] - - - - - - - [...] BROOKS STAFF PATHOLOGIST, PATHOLOGY & LABORATORY MED [facility] [place] [facility] [place] Signed Apr 26, 2023@10:42 Performing Laboratory: Surgical Pathology Report Performed By: [facility] [CLIA# [id number]] [place] [address] $FTR - - - - - - - - - - - - - - - - - - - - - - - - - - - - - - - - - - - - - - - - (End of report) ALISA BROOKS MD s Date Apr 26, 2023 - - - - - - - - - - - - - - - - - - - - - - - - - - - - - - - - - - - - - - - - JAYA LIM STANDARD FORM 515 ID:[id number] SEX:M :1950 AGE: 72 LOC:1153 PCP: Francisco Lewis /kristy/ ALISA BROOKS STAFF PATHOLOGIST, PATHOLOGY & LABORATORY MED [facility] Signed: 04/26/2023 10:42 ALISA BROOKS [facility]
--- OUTSIDE RECORDS SUMMARY | 2023-12-24 09:46 | XMS_ITS | Encounter Summary ---
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 Department of Vetera Affairs Address [address] [place] [address] Support Name Relationship Address Phone ENRIQUE LIM Next of Kin [address] [place] [address] ENRIQUE LIM Emergency Contact [address] [facility] [facility] [place] [address] GENTRY LIM Next of Kin [address] [place] [phone] GENTRY LIM Emergency Contact [address] [place] [phone] Insurance Providers: All historical and current [...] Doshi's Name Patient's Relationship to Policy Doshi [facility] MEDICARE SUPPLEMEN JAYNE MEDIC ARE SUPPL EMENT Nov 06, 2018 [id number] BONY LIM PATIENT [facility] ([facility]) MEDICARE ADVANTAGE SENIO R GOLD INDIV IDU Nov 06, 2016 [id number] [phone] BONY LIM PATIENT [facility] MEDICARE SUPPLEMEN JAYNE MEDIC ARE SUPPL EMENT Nov 06, 2018 [id number] BONY LIM PATIENT MEDICARE ([facility]) MEDICARE (M) PART B Apr 06, 2015 PART B [id number] [phone] BONY LIM PATIENT MEDICARE ([facility]) MEDICARE (M) PART A Apr 06, 2015 PART A [id number] [phone] BONY LIM PATIENT Selected Encounter This section includes the information on record at [place] for the Encounter. Date/Time Encounter Type Encounter Description Reason Provider Source Jul 03, 2023 11:00 AM HC PRO PHONE CALL 11-20 MIN TELEPHONE PRIMARY CARE ICD-10-CM I10 Essential (primary) hypertension EBENEZER BOYER IHE Encounter Template Text not used by [place] Assessments - Encounter Diagnoses This section includes the primary and secondary diagnoses documented for the Encounter. Date/Time Primary/Secondary Diagnosis Diagnosis Name Provider Source Jul 03, 2023 11:00 AM PRIMARY Essential (primary) hypertension OMAIRA MENENDEZ Plan of Treatment: Future Appointments (+ 6 months) and Future Tests (+/- 45 days) The Plan of Treatment section includes future care activities for the patient from all [place] treatmentfacilities. This section includes future appointments and future orders which are active, pending or scheduled. Future Appointments This section includes appointments that were scheduled to occur 6 months from the date of the Encounter, up to a maximum of 20 appointments. The data comes from all [place] treatment facilities. Appointment Date/Time Appointment Type Appointme nt Facility Name Aug 09, 2023 11:00 AM AMBULATORY - MEDICINE [facility] Social History: Smoking Status (Most current) and Tobacco Use (All prior to encounter date) This section includes the most current, and the historical, smoking and tobacco- related health factors from the [place] facility where the Encounter took place. Current Smoking Status This section includes the most current smoking, or tobacco-related health factor, from the [place] facility where the Encounter took place. Date/Time Current Smoking Status Comment Shashank dominguez Jan 18, 2023 10:00 AM VA-TOBACCO FORMER USER [facility] Tobacco Use History This section includes a history of the smoking, or tobacco-related health factors, that were collected on or before the date of the Encounter. The data comes from the [place] facility where the Encounter took place. Date/Time Smoking Status/Tobacco Use Comment F wang Jan 18, 2023 10:00 AM VA-TOBACCO QUIT 15 YRS OR MORE [facility] Nov 10, 2021 09:30 AM VA-TOBACCO FORMER USER [facility] Nov 10, 2021 09:30 AM VA-TOBACCO QUIT 15 YRS OR MORE [facility] Oct 09, 2020 09:00 AM VA-TOBACCO FORMER USER [facility] Oct 09, 2020 09:00 AM VA-TOBACCO QUIT 15 YRS OR MORE [facility] Sep 30, 2019 09:37 AM VA-TOBACCO FORMER USER [facility] Sep 30, 2019 09:37 AM VA-TOBACCO QUIT 15 YRS OR MORE [facility] Aug 29, 2018 11:24 AM VA-TOBACCO FORMER USER [facility] Aug 29, 2018 11:24 AM VA-TOBACCO QUIT 15 YRS OR MORE [facility] Oct 17, 2017 11:00 AM FORMER TOBACCO USER 7Y OR GREATE R [facility] Jun 20, 2016 12:43 PM FORMER TOBACCO USER 7Y OR GREATE R [facility] Apr 10, 2015 10:31 AM FORMER TOBACCO USER 7Y OR GREATE R [facility] May 12, 2014 01:03 PM FORMER TOBACCO USER 7Y OR GREATE R [facility] Advance Directives: All historical and current Section Date Range: From patient's date of to the date document was created. This section includes ALL of a patient's completed or amended [place] Advance and Rescinded Directives. The entries below indicate that a directive exists for the patient, but an actual copy is not included with this document. The data comes from all [place] facilities. Date Advance Directives Provider Source Sep 11, 2014 CLINICAL WARNING COURTNEY TRAVIS [facility] Dec 17, 2003 ADVANCE DIRECTIVE ANA MCNEIL [facility] Encounter Notes: All associated encounter notes This section contains the clinical notes associated to the Encounter. Date/Time Encounter Note(s) Provider Source Aug 09, 2023 11:38 AM ADDENDUM: LOCAL TITLE: Addendum STANDARD TITLE: ADDENDUM DATE OF NOTE: AUG 09, 2023@11:38:50 ENTRY DATE: AUG 09, 2023@11:38:51 AUTHOR: CELIA SANCHEZ COSIGNER: URGENCY: STATUS: COMPLETED SUBJECT: Home BP/HR No dates were indicated on the returned readings. Started 07/07/23 as instructed. Date SBP DBP HR SBP DBP HR -Jul 117 65 100 101 58 80 Overall 109 68 87 128 74 71 [id number] 144 75 84 128 74 71 [id number] 113 74 101 26 68 63 [id number] 108 84 111 97 73 85 98 [...] Minimum 98 53 71 26 58 63 /es/ CELIA Pope LAURA Lab Signed: 08/09/2023 11:40 Receipt Acknowledged By: 08/09/2023 13:59 /es/ OMAIRA MENENDEZ RN REGISTERED NURSE 08/09/2023 14:35 /es/ RAMBO BOYER CLINICAL TRANSMISSION CALIBRATION ENGINEER --- Original Document --- 07/03/23 [facility] NURSING RN NOTE: TYPE OF VISIT: Telephone REASON FOR VISIT: follow up BP Spoke with vannessa. [place] reports he is feeling well, denying any acute complaints. HTN Medication: metoprolol succinate 50 mg daily *[place]'s metoprolol dose was recently decreased by PharmD from 200 mg to 100 mg daily secondary to bradycardia. During follow up the end of March, reported he felt almost instantly better on the lower dose, noting his energy returned and he didn't need to take afternoon naps anymore. A couple of months later, noticed he was feeling tired again, to the point where he was falling asleep in the afternoon and needing naps, so he cut his metoprolol dose down to 50 mg daily and started monitoring his BP and HR. states he is feeling much better, his energy returned again and he is no longer needing an afternoon nap. He requests to change his prescription to metoprolol succinate 50 mg tablets, stating he does not like splitting tablets. Home BP Readings for June: Date SBP DBP HR SBP DBP HR [...] Minimum 105 62 63 86 53 49 *Noted 's BP and HR appear to be at goal on the lower dose of metoprolol. He denies any sx of hypotension when BP was 86/53 or 98/62. Inquired about 's hydration. Vannessa states he is currently drinking 2-16 oz. bottles of water/day, even when working outside. Recommended increase his water intake to 64 oz./day, especially when he is working outdoors in the heat. agrees. Will route to PharmD for review and recommendation. Exercise: Vannessa states his activity level hasn't changed. [place] [address] and states it keeps me busy. PLAN: To PharmD for review and recommendation regarding reduced dose of metoprolol. Increase daily fluid intake to 64 oz./day, especially when working outdoors. [facility] /kristy/ OMAIRA MENENDEZ RN REGISTERED NURSE Signed: 07/03/2023 11:37 Receipt Acknowledged By: 07/04/2023 12:42 /es/ RAMBO BOYER CLINICAL TRANSMISSION CALIBRATION ENGINEER 07/04/2023 ADDENDUM STATUS: COMPLETED Home BPs are well controlled. No indication for ongoing beta-earl is noted. Would be appropriate to reduce metoprolol succinate to 25 mg daily x 7 days then discontinue therapy at that time. Will send one week worth of 25 mg tablets to use but for the time being would encourage he continue to take 1/2 of a 100 mg tablet to prevent additional medication waste and confusion. If blood prssure support is needed after beta-earl discontinuation, we can reassess at that time. CONTINUE metoprolol succinate 50 mg daily until 25 mg tablets arrive DECREASE metoprolol succinate 25 mg daily x 7 days then DISCONTINUE RN please encourage continue home BP monitoring for now. We'll follow-up 2-3 weeks after beta-earl discontinuation and reassess home BP/HR control and how he is feeling. Thank you! /gilson BOYER CLINICAL TRANSMISSION CALIBRATION ENGINEER Signed: 07/04/2023 12:41 Receipt Acknowledged By: 07/05/2023 09:58 /gilson MENENDEZ RN REGISTERED NURSE 07/04/2023 ADDENDUM STATUS: COMPLETED Left HIPPA compliant message requesting a return call. /gilson MENENDEZ RN REGISTERED NURSE Signed: 07/04/2023 16:25 07/05/2023 ADDENDUM STATUS: COMPLETED Spoke with and reviewed recommendations, per PharmD. [place] is agreeable and will resume monitoring his BP/HR BID x 14 dyas after discontinuing metoprolol. RN phone follow up visit scheduled on 08/09/23. /gilson MENENDEZ RN REGISTERED NURSE Signed: 07/05/2023 10:06 CELIA SANCHEZ [facility] Jul 04, 2023 12:37 PM ADDENDUM: LOCAL TITLE: Addendum STANDARD TITLE: ADDENDUM DATE OF NOTE: JUL 04, 2023@12:37:26 ENTRY DATE: JUL 04, 2023@12:37:27 AUTHOR: RAMBO BOYER EXP COSIGNER: URGENCY: STATUS: COMPLETED Home BPs are well controlled. No indication for ongoing beta-earl is noted. Would be appropriate to reduce metoprolol succinate to 25 mg daily x 7 days then discontinue therapy at that time. Will send one week worth of 25 mg tablets to use but for the time being would encourage he continue to take 1/2 of a 100 mg tablet to prevent additional medication waste and confusion. If blood prssure support is needed after beta-earl discontinuation, we can reassess at that time. CONTINUE metoprolol succinate 50 mg daily until 25 mg tablets arrive DECREASE metoprolol succinate 25 mg daily x 7 days then DISCONTINUE RN please encourage continue home BP monitoring for now. We'll follow-up 2-3 weeks after beta-earl discontinuation and reassess home BP/HR control and how he is feeling. Thank you! /gilson BOYER CLINICAL TRANSMISSION CALIBRATION ENGINEER Signed: 07/04/2023 12:41 Receipt Acknowledged By: 07/05/2023 09:58 /gilson MENENDEZ RN REGISTERED NURSE --- Original Document --- 07/03/23 [facility] NURSING RN NOTE: TYPE OF VISIT: Telephone REASON FOR VISIT: follow up BP Spoke with vannessa. Vannessa reports he is feeling well, denying any acute complaints. HTN Medication: metoprolol succinate 50 mg daily *Vannessa's metoprolol dose was recently decreased by PharmD from 200 mg to 100 mg daily secondary to bradycardia. During follow up the end of March, vannessa reported he felt almost instantly better on the lower dose, noting his energy returned and he didn't need to take afternoon naps anymore. A couple of months later, vannessa noticed he was feeling tired again, to the point where he was falling asleep in the afternoon and needing naps, so he cut his metoprolol dose down to 50 mg daily and started monitoring his BP and HR. Vannessa states he is feeling much better, his energy returned again and he is no longer needing an afternoon nap. He requests to change his prescription to metoprolol succinate 50 mg tablets, stating he does not like splitting tablets. Home BP Readings for June: Date SBP DBP HR SBP DBP HR [...] Minimum 105 62 63 86 53 49 *Noted vannessa's BP and HR appear to be at goal on the lower dose of metoprolol. He denies any sx of hypotension when BP was 86/53 or 98/62. Inquired about 's hydration. Vannessa states he is currently drinking 2-16 oz. bottles of water/day, even when working outside. Recommended increase his water intake to 64 oz./day, especially when he is working outdoors in the heat. agrees. Will route to PharmD for review and recommendation. Exercise: Vannessa states his activity level hasn't changed. [place] [address] and states it keeps me busy. PLAN: To PharmD for review and recommendation regarding reduced dose of metoprolol. Increase daily fluid intake to 64 oz./day, especially when working outdoors. RN remains available for [facility] sx/needs. /kristy/ OMAIRA MENENDEZ RN REGISTERED NURSE Signed: 07/03/2023 11:37 Receipt Acknowledged By: 07/04/2023 12:42 /kristy/ RAMBO BOYER CLINICAL TRANSMISSION CALIBRATION ENGINEER 07/04/2023 ADDENDUM STATUS: COMPLETED Left HIPPA compliant message requesting a return call. /kristy/ OMAIRA MENENDEZ RN REGISTERED NURSE Signed: 07/04/2023 16:25 RAMBO BOYER [facility] Jul 03, 2023 11:00 AM NURSING OUTPATIENT NOTE: LOCAL TITLE: [facility] NURSING RN NOTE STANDARD TITLE: NURSING OUTPATIENT NOTE DATE OF NOTE: JUL 03, 2023@11:00 ENTRY DATE: JUL 03, 2023@11:05:30 AUTHOR: OMAIRA MENENDEZ EXP COSIGNER: URGENCY: STATUS: COMPLETED [facility] NURSING RN NOTE Has ADDENDA TYPE OF VISIT: Telephone REASON FOR VISIT: follow up BP Spoke with vannessa. reports he is feeling well, denying any acute complaints. HTN Medication: metoprolol succinate 50 mg daily *Vannessa's metoprolol dose was recently decreased by PharmD from 200 mg to 100 mg daily secondary to bradycardia. During follow up the end of March, vannessa reported he felt almost instantly better on the lower dose, noting his energy returned and he didn't need to take afternoon naps anymore. A couple of months later, noticed he was feeling tired again, to the point where he was falling asleep in the afternoon and needing naps, so he cut his metoprolol dose down to 50 mg daily and started monitoring his BP and HR. states he is feeling much better, his energy returned again and he is no longer needing an afternoon nap. He requests to change his prescription to metoprolol succinate 50 mg tablets, stating he does not like splitting tablets. Home BP Readings for June: Date SBP DBP HR SBP DBP HR [...] Minimum 105 62 63 86 53 49 *Noted 's BP and HR appear to be at goal on the lower dose of metoprolol. He denies any sx of hypotension when BP was 86/53 or 98/62. Inquired about 's hydration. [place] states he is currently drinking 2-16 oz. bottles of water/day, even when working outside. Recommended increase his water intake to 64 oz./day, especially when he is working outdoors in the heat. agrees. Will route to PharmD for review and recommendation. Exercise: Vannessa states his activity level hasn't changed. [place] [address] and states it keeps me busy. PLAN: To PharmD for review and recommendation regarding reduced dose of metoprolol. Increase daily fluid intake to 64 oz./day, especially when working outdoors. RN remains available for [facility] sx/needs. /es/ OMAIRA MENENDEZ RN REGISTERED NURSE Signed: 07/03/2023 11:37 Receipt Acknowledged By: 07/04/2023 12:42 /es/ RAMBO BOYER CLINICAL TRANSMISSION CALIBRATION ENGINEER 07/04/2023 ADDENDUM STATUS: COMPLETED Home BPs are well controlled. No indication for ongoing beta-earl is noted. Would be appropriate to reduce metoprolol succinate to 25 mg daily x 7 days then discontinue therapy at that time. Will send one week worth of 25 mg tablets to use but for the time being would encourage he continue to take 1/2 of a 100 mg tablet to prevent additional medication waste and confusion. If blood prssure support is needed after beta-earl discontinuation, we can reassess at that time. CONTINUE metoprolol succinate 50 mg daily until 25 mg tablets arrive DECREASE metoprolol succinate 25 mg daily x 7 days then DISCONTINUE RN please encourage continue home BP monitoring for now. We'll follow-up 2-3 weeks after beta-earl discontinuation and reassess home BP/HR control and how he is feeling. Thank you! /gilson BOYER CLINICAL TRANSMISSION CALIBRATION ENGINEER Signed: 07/04/2023 12:41 Receipt Acknowledged By: 07/05/2023 09:58 /kristy/ OMAIRA MENENDEZ RN REGISTERED NURSE 07/04/2023 ADDENDUM STATUS: COMPLETED Left HIPPA compliant message requesting a return call. /gilson MENENDEZ RN REGISTERED NURSE Signed: 07/04/2023 16:25 07/05/2023 ADDENDUM STATUS: COMPLETED Spoke with and reviewed recommendations, per PharmD. [place] is agreeable and will resume monitoring his BP/HR BID x 14 dyas after discontinuing metoprolol. RN phone follow up visit scheduled on 08/09/23. /gilson MENENDEZ RN REGISTERED NURSE Signed: 07/05/2023 10:06 08/09/2023 ADDENDUM STATUS: COMPLETED No dates were indicated on the returned readings. Started 07/07/23 as instructed. Date SBP DBP HR SBP DBP HR 1-Sep 117 65 100 101 58 80 Overall 109 68 87 128 74 71 [id number] 144 75 84 128 74 71 [id number] 113 74 101 26 68 63 [id number] 108 84 111 97 73 85 98 [...] Minimum 98 53 71 26 58 63 /kristy/ CELIA SANCHEZ Lab Signed: 08/09/2023 11:40 Receipt Acknowledged By: * AWAITING SIGNATURE * OMAIRA MENENDEZ * AWAITING SIGNATURE * RAMBO BOYER RENEE J [place]
--- OUTSIDE RECORDS SUMMARY | 2023-12-24 09:47 | XMS_ITS | Clinical Summary ---
Author Name Unknown Organization [facility] Address [place], [place] [address] Care Team Providers Care Brick Catcher Name Role Phone Johnny Dunn MD Primary Care Provider [phone] Allergies Active Allergy Reactions Criticality Noted Date Comments Penicillin G Benzathin,Procain 03/02 Sulfa (Sulfonamide Antibiotics) Rash 04/1995 Medications Medication Sig Dispensed Refills Start Date End Date Status aspirin 81 mg tablet Take 1 tablet by mouth once daily with a meal. 0 03/02/2011 Active acetaminophen (TYLENOL) 325 mg tablet Take 1 tablet by mouth every 4 hours if needed. Max acetaminophen dose: 4000mg in 24 hrs. 0 09/09/2011 Active azelastine 137 mcg/actuation (ASTELIN) nasal sprayIndications:Non -seasonal allergic rhinitis due to pollen Inhale 1 [place] into affected nostril(s) two times daily. 30 mL 11 07/08/2022 Active terazosin (HYTRIN) 2 mg capsuleIndications:B PH with urinary obstruction Take 1 Capsule (2 mg) by mouth every morning. 30 Capsule 07/08/2022 Active Additional Information Patient taking differently: 6 mgOral Q AM,3 tabs once daily at night, Indications: benign prostatic hyperplasia with lower urinary tract sx, Reported on 05/16/2023 metoprolol succinate SR (TOPROL XL) 200 mg Sustained-Release tabletIndications:Parikh s run out of medications Take 1 Tablet (200 mg) by mouth once daily. 30 Tablet 11 07/08/2022 Active Additional Information Patient taking differently: 100 mgOral DAILY,Indications: hypertension, Reported on 05/16/2023 atorvastatin (LIPITOR) 40 mg tabletIndications:Hy perlipidemia, unspecified hyperlipidemia type Take 1 Tablet (40 mg) by mouth at bedtime. 30 Tablet 11 07/08/2022 Active Belbuca [address] 900 mcg in mouth, between cheek & gum every 12 hours. 0 04/27/2023 Active cetirizine (ZYRTEC) 10 mg tablet Take 10 mg by mouth once daily. 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 07/08/2022 CVD (cardiovascular disease) 05/25/2010 HTN (hypertension) 05/25/2010 Coronary atherosclerosis of unspecified type of vessel, qawalangin or graft 05/25/2010 Immunizations Name Administration Dates Next Due Pneumococcal Poly,23-Valent (Pneumovax) 07/25/20 08 Tdap 07/05/2006 Family History Medical History Relation Name Comments Diabetes Father Diabetes Mother Relation Name Status Comments Father Mother Social History Tobacco Use Types Packs/Day Years Used Date Smoking Tobacco: Never Smokeless Tobacco: Never Alcohol Use Standard Drinks/Week Comments Never 0 (1 standard drink = 0.6 oz pur e alcohol) Social Connections Answer Date Recorded Frequency of Communication with Friends and Fami ly Not on file 07/21/2023 Financial Resource Strain Answer Date R ecorded Difficulty of Paying Living Expenses 3 07/08/2022 Difficulty of Paying Living Expenses Not on file 07/08/2022 Food Insecurity Answer Date Recorded Worried About Running Out of Food in the Last Ye ar 1 07/08/2022 Transportation Needs Answer Date Record ed Lack of Transportation (Medical) 1 07/08/2022 Housing Stability Answer Date Recorded Unable to Pay for Housing in the Last Year 1 07/08/2022 Sex and Gender Information Value Date Recorded Sex Assigned at Not on file Gender Identity Not on file Sexual Orientation Not on file Obstetrics History Last Filed Vital Signs Vital Sign Reading Time Taken Comments Blood Pressure 128/64 05/23/2023 9:49 AM CDT Pulse 68 05/23/2023 9:49 AM CDT Temperature 36.9 ??C (98.4 ??F) 11/07/2021 10:[address] Respiratory Rate 16 05/23/2023 9:49 AM CDT Oxygen Saturation 99% 11/07/2021 10:47 AM REPLACER Inhaled Oxygen Concentration - - Weight 77.7 kg (171 lb 3.2 oz) 05/16/2023 1:37 P M CDT Height 172.1 cm (5' 7.75) 05/16/2023 1:37 PM CD T Body Mass Index 26.22 05/16/2023 1:37 PM CDT Plan of Treatment Health Maintenance Due Date Last Done Comments Depression screening for age 12+ 1961 Hepatitis C screening for age 18-79 1967 Zoster (shingles) series for age 50+ (1 of 2) 1999 Lipids for age 45-75 07/25/2013 07/25/2008 Colonoscopy through age 75 11/06/2013 11/06/2003 Medicare Wellness for age 65+ 2014 Pneumococcal series for age 65+ (2 of 2 - PCV) 2014 07/25/2008 Tetanus booster 07/05/2016 07/05/2006 COVID-19 vaccine series (2 - 2022- season) 2023 01/18/2023 Influenza for age 65+ 07/07/2023 BMI (ht and wt on same day) for age 18+ 05/16/2024 05/16/2023, 11/07/2021, 09/17/2021 Tdap Completed 07/05/2006 Care Teams Brick Catcher Relationship Specialty Start Date End Date Johnny Dunn MD [address] [place] [address] PCP - General Family Practice 04/09/19
--- OUTSIDE RECORDS SUMMARY | 2023-12-24 09:47 | XMS_ITS | Encounter Summary ---
Author Name Unknown Organization [facility] Address [address] [place] [address]. [place] [address] Care Team Providers Care Gas Engine Operator [employer]ressors Name Role Phone Carrie Vicente PA-C Unavailable [phone]- [phone] Barrie Hussein PA-C Primary Care Provider [phone] Encounter Details Date Type Department Care Team (Latest Contact Info) Description 08/03/2023 Travel Social History Tobacco Use Types Packs/Day [...] documented as of this encounter Care Teams Gas Engine Operator Comp[employer]ors Relationship Specialty Start Date End Date Barrie Hussein PA-C [address] [place] [address] PCP - General Family Medicine 07/24/23 Carrie Vicente PA-C [address] [place] [address] Assigned PCP 12/06/20 documented as of this encounter
[2023-12-24 10:12] LABS: C Reactive Protein* < 0.5 mg/dL (0.5-1.0)
== END 2023-12-24 10:31 | disposition home or self-care (01) ==
PROVIDERS: Emergency Provider Emergency Medicine
DX: M25.512 Pain in left shoulder (principal)
CPT/HCPCS: 36415; 73030; 80048; 84484; 85025; 86140; 93005; 99284